=== PATIENT | male | born 1955 | race Caucasian/White ===

== ENCOUNTER → 2016-07-22 | Outpatient (CLI) | payer BC ==
--- NOTE | 2016-07-23 05:29 | REP ---
Clinical: Palpable mass. Technique: Real time vasquez scale and color Doppler evaluation using linear high frequency transducer. Findings: With the exception of 4 mm left epididymal head cyst and minuscule left hydrocele, the testicles and epididymi are normal in contour, size, echogenicity, and vascularity. As no evidence for mass lesion, infectious/inflammatory process, or torsion. Right testicle measures 4.5 x 2.0 x 2.8 cm. Left testicle measures 4.5 x 2.2 x 3.3 cm. Impression: Essentially normal scrotal ultrasound. Signed by Alex Melton MD 07/23/2016 05:20 A
== END ==
LOC: M SMT 09:10
PROVIDERS: ATTEND Physician Assistant
DX: D40.10 Neoplasm of uncertain behavior of unspecified testis (principal); K40.90 Unilateral inguinal hernia, without obstruction or gangrene, not specified as recurrent

== ENCOUNTER → 2016-09-23 | Outpatient (REF) ==
--- NOTE | 2016-09-24 03:03 | REP ---
Clinical: Pain and disability. Technique: Internal rotation, external rotation, and Y view. Findings: Mild age-related degenerative changes include cortical irregularity and very subtle spurring at the acromioclavicular joint along with subtle fraying and blunting to the glenoid rim. Humeral head appears intact and relatively normal. Subacromial space decreases to 8.5 mm. No periarticular calcifications. Surrounding soft tissues normal. 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 Signed by Alex Melton MD 09/24/2016 02:54 A
--- NOTE | 2016-09-24 03:06 | REP ---
Clinical: Pain and disability. Technique: AP, lateral, bilateral oblique, and sunrise views of the right knee. Findings: Increased sclerosis to the tibial plateau is appreciated along with mild tibiofemoral joint space narrowing. Lateral and sunrise views demonstrates decreased patellofemoral joint space with increased sclerosis and fraying along the anterior margin of the patella suggesting mild patellar tendinopathy. No acute fracture dislocation. No effusion. Impression: Mild arthritic degenerative changes as described above. Signed by Alex Melton MD 09/24/2016 02:57 A
== END ==
LOC: M SMT 10:23
PROVIDERS: ATTEND Internal Medicine
DX: Z02.71 Encounter for disability determination (principal)

== ENCOUNTER 2017-06-03 21:53 | Inpatient (IN) | payer BC ==
[2017-06-03] MEDS: NS 1,000 ML IV (23:15)
[2017-06-03] MEDS: ONDANSETRON 4MG/2ML VIAL (J2405) IV (23:15)
[2017-06-03 23:35] LABS: BASO # 0.1 10^3/uL (0.0-0.2); BASO % 0.6 % (0.0-1.0); EOS % 0.3 % (0.0-3.0); HEMATOCRIT 30.8 % (42.0-52.0); HEMOGLOBIN 10.8 g/dl (14.0-18.0); IMMATURE GRANULOCYTE % 0.5 % (0-3.0); LYMPH % 8.9 % (24.0-44.0); MEAN CORPUSCULAR HEMOGLOBIN 33.4 pg (27.0-33.0); MEAN CORPUSCULAR HGB CONC 35.1 g/dl (32.0-36.5); MEAN CORPUSCULAR VOLUME 95.4 fl (80.0-96.0); MONO # 0.7 10^3/uL (0.0-0.8); MONO % 6.4 % (0.0-5.0); NEUTROPHILS # 9.5 10^3/uL (1.8-7.7); NEUTROPHILS % 83.3 % (36.0-66.0); PLATELET COUNT, AUTOMATED 139 10^3/uL (150-450); RED BLOOD COUNT 3.23 10^6/uL (4.30-6.10); RED CELL DISTRIBUTION WIDTH 14.3 % (11.5-14.5); WHITE BLOOD COUNT 11.4 10^3/uL (4.0-10.0)
[2017-06-03 23:44] LABS: INR 1.26; PROTHROMBIN TIME 16.1 SECONDS (12.4-14.5)
[2017-06-03 23:45] LABS: PARTIAL THROMBOPLASTIN TIME 40.5 SECONDS (26.8-37.9)
[2017-06-03 23:56] LABS: AMMONIA 59 uMOL/L (<32)
[2017-06-04 00:02] LABS: BLOOD UREA NITROGEN 26 MG/DL (7-18); CREATININE FOR GFR 0.83 MG/DL (0.70-1.30); GLOMERULAR FILTRATION RATE > 60.0 (>49); GLUCOSE, FASTING 175 MG/DL (70-100); POTASSIUM SERUM 3.9 MEQ/L (3.5-5.1); SODIUM LEVEL 137 MEQ/L (136-145)
[2017-06-04 00:03] LABS: ALBUMIN 2.6 GM/DL (3.2-5.2); ALBUMIN/GLOBULIN RATIO 0.51 (1.00-1.93); ALKALINE PHOSPHATASE 193 U/L (45-117); ALT/SGPT 21 U/L (12-78); ANION GAP 11 MEQ/L (8-16); AST/SGOT 76 U/L (7-37); BILIRUBIN,DIRECT 2.8 MG/DL (0.0-0.2); BILIRUBIN,TOTAL 5.9 MG/DL (0.2-1.0); CARBON DIOXIDE LEVEL 26 MEQ/L (21-32); CHLORIDE LEVEL 100 MEQ/L (98-107); CPK CREATINE PHOSPHOKINASE 95 U/L (39-308); ETHYL ALCOHOL (ETHANOL) < 0.003 % (0.000-0.010); LIPASE 148 U/L (73-393); TOTAL PROTEIN 7.7 GM/DL (6.4-8.2); TROPONIN I < 0.02 NG/ML (< 0.10)
[2017-06-04 00:05] LABS: MB/CK RELATIVE INDEX 1.05 (< OR =4)
[2017-06-04] MEDS ORDERED: ISOVUE-370 76% 100ML VIAL (Q9967) As Ordered (00:46)
[2017-06-04 01:02] LABS: LACTIC ACID SEPSIS PROTOCOL 3.7 MMOL/L (0.4-2.0)
[2017-06-04 01:03] LABS: KETONE, URINE AUTO RFX 1+ mg/dL (NEGATIVE); LEUKOCYTE ESTERASE UR AUTO RFX NEGATIVE (NEGATIVE); MUCUS, URINE RFX SMALL (NEGATIVE); NITRITE, URINE AUTO RFX NEGATIVE (NEGATIVE); RBC, URINE AUTO RFX 1 /HPF (0-3); SPECIFIC GRAVITY UR AUTO RFX 1.029 (1.002-1.035); SQUAM EPITHELIAL CELL UR AURFX 0 /HPF (0-6); WBC, URINE AUTO RFX 1 /HPF (0-3)
[2017-06-04] MEDS: METOCLOPRAMIDE INJ 10MG/2ML VIAL (J2765) IV (02:29)
[2017-06-04] MEDS: NS 1,000 ML IV ×3 (03:00→17:06)
[2017-06-04] MEDS ORDERED: ONDANSETRON 4MG/2ML VIAL (J2405) IV (03:15)
[2017-06-04] MEDS ORDERED: IBUPROFEN 200 MG TAB PO (03:30)
[2017-06-04] MEDS: [UNRECOGNIZED DRUG - OTHER] IV (04:06)
[2017-06-04] MEDS: PANTOPRAZOLE SODIUM 40 MG in D5W 50 ML IV ×5 (04:06→23:46)
[2017-06-04] MEDS: THIAMINE IV (04:06)
[2017-06-04] MEDS: FOLIC ACID IV (04:06)
[2017-06-04] MEDS: MULTIVITAMIN ADULT IV (04:06)
[2017-06-04 06:35] LABS: HEMATOCRIT 23.4 % (42.0-52.0); MEAN CORPUSCULAR HEMOGLOBIN 33.3 pg (27.0-33.0); MEAN CORPUSCULAR HGB CONC 34.6 g/dl (32.0-36.5); MEAN CORPUSCULAR VOLUME 96.3 fl (80.0-96.0); PLATELET COUNT, AUTOMATED 101 10^3/uL (150-450); RED BLOOD COUNT 2.43 10^6/uL (4.30-6.10); RED CELL DISTRIBUTION WIDTH 14.5 % (11.5-14.5); WHITE BLOOD COUNT 9.5 10^3/uL (4.0-10.0)
[2017-06-04 06:41] LABS: HEMOGLOBIN 8.1 g/dl (14.0-18.0)
[2017-06-04 06:55] LABS: AMMONIA 96 uMOL/L (<32)
[2017-06-04 06:55] LABS: ALBUMIN/GLOBULIN RATIO 0.49 (1.00-1.93); ALKALINE PHOSPHATASE 131 U/L (45-117); ALT/SGPT 15 U/L (12-78); ANION GAP 9 MEQ/L (8-16); AST/SGOT 55 U/L (7-37); BILIRUBIN,TOTAL 4.1 MG/DL (0.2-1.0); BLOOD UREA NITROGEN 25 MG/DL (7-18); CARBON DIOXIDE LEVEL 25 MEQ/L (21-32); CHLORIDE LEVEL 106 MEQ/L (98-107); GLOMERULAR FILTRATION RATE > 60.0 (>49); GLUCOSE, FASTING 157 MG/DL (70-100); MAGNESIUM LEVEL 1.8 MG/DL (1.8-2.4); POTASSIUM SERUM 3.8 MEQ/L (3.5-5.1); SODIUM LEVEL 140 MEQ/L (136-145); TOTAL PROTEIN 6.1 GM/DL (6.4-8.2)
[2017-06-04] MEDS ORDERED: IBUPROFEN 600 MG TAB PO (07:30)
[2017-06-04] MEDS: OCTREOTIDE ACETATE 1,200 MCG in NS 238.8 ML IV (07:50)
[2017-06-04] MEDS: CEFTRIAXONE SOD 1 GM in APPROPRIATE DILUENT 1 EA IV (07:51)
[2017-06-04 10:29] LABS: IMMEDIATE SPIN CROSSMATCH 1 1
[2017-06-04 10:58] LABS: HEPATITIS B SURFACE ANTIGEN NEGATIVE (NEGATIVE)
[2017-06-04 11:23] LABS: HEPATITIS B CORE ANTIBODY IGM NEGATIVE (NEGATIVE)
[2017-06-04 11:32] LABS: HEPATITIS A ANTIBODY IGM NEGATIVE (NEGATIVE)
[2017-06-04 16:21] LABS: BASO # 0.1 10^3/uL (0.0-0.2); BASO % 1.1 % (0.0-1.0); EOS # 0.1 10^3/uL (0.0-0.50); EOS % 1.4 % (0.0-3.0); HEMATOCRIT 25.3 % (42.0-52.0); HEMOGLOBIN 8.7 g/dl (14.0-18.0); IMMATURE GRANULOCYTE % 0.6 % (0-3.0); LYMPH # 1.4 10^3/uL (1.5-4.5); LYMPH % 19.5 % (24.0-44.0); MEAN CORPUSCULAR HEMOGLOBIN 33.2 pg (27.0-33.0); MEAN CORPUSCULAR HGB CONC 34.4 g/dl (32.0-36.5); MEAN CORPUSCULAR VOLUME 96.6 fl (80.0-96.0); MONO # 0.7 10^3/uL (0.0-0.8); MONO % 9.8 % (0.0-5.0); NEUTROPHILS # 4.8 10^3/uL (1.8-7.7); NEUTROPHILS % 67.6 % (36.0-66.0); PLATELET COUNT, AUTOMATED 100 10^3/uL (150-450); RED BLOOD COUNT 2.62 10^6/uL (4.30-6.10); RED CELL DISTRIBUTION WIDTH 15.9 % (11.5-14.5); WHITE BLOOD COUNT 7.1 10^3/uL (4.0-10.0)
[2017-06-04 16:49] LABS: BLOOD UREA NITROGEN 26 MG/DL (7-18)
[2017-06-04 16:49] LABS: CREATININE FOR GFR 0.68 MG/DL (0.70-1.30); GLOMERULAR FILTRATION RATE > 60.0 (>49)
[2017-06-05] MEDS: NS 1,000 ML IV (03:29)
[2017-06-05] MEDS: OCTREOTIDE ACETATE 1,200 MCG in NS 238.8 ML IV (05:28)
[2017-06-05] MEDS: PANTOPRAZOLE SODIUM 40 MG in D5W 50 ML IV ×2 (05:36→09:45)
[2017-06-05 05:40] LABS: HEMATOCRIT 24.1 % (42.0-52.0); HEMOGLOBIN 8.2 g/dl (14.0-18.0); MEAN CORPUSCULAR HEMOGLOBIN 33.1 pg (27.0-33.0); MEAN CORPUSCULAR VOLUME 97.2 fl (80.0-96.0); RED BLOOD COUNT 2.48 10^6/uL (4.30-6.10); RED CELL DISTRIBUTION WIDTH 15.9 % (11.5-14.5); WHITE BLOOD COUNT 5.7 10^3/uL (4.0-10.0)
[2017-06-05 05:55] LABS: ALBUMIN 2.1 GM/DL (3.2-5.2); ALBUMIN/GLOBULIN RATIO 0.54 (1.00-1.93); ALKALINE PHOSPHATASE 118 U/L (45-117); ALT/SGPT 17 U/L (12-78); ANION GAP 7 MEQ/L (8-16); AST/SGOT 80 U/L (7-37); BILIRUBIN,TOTAL 4.3 MG/DL (0.2-1.0); BLOOD UREA NITROGEN 22 MG/DL (7-18); CALCIUM LEVEL 7.4 MG/DL (8.8-10.2); CARBON DIOXIDE LEVEL 25 MEQ/L (21-32); CHLORIDE LEVEL 110 MEQ/L (98-107); CREATININE FOR GFR 0.64 MG/DL (0.70-1.30); GLOMERULAR FILTRATION RATE > 60.0 (>49); GLUCOSE, FASTING 110 MG/DL (70-100); MAGNESIUM LEVEL 1.7 MG/DL (1.8-2.4); PLATELET COUNT, AUTOMATED 95 10^3/uL (150-450); POTASSIUM SERUM 3.6 MEQ/L (3.5-5.1); SODIUM LEVEL 142 MEQ/L (136-145)
[2017-06-05 05:56] LABS: IMMATURE PLATELET FRACTION % 5.2 % (0.0-10.9)
[2017-06-05] MEDS: MAG SULF 1GM/100ML (MAG RUN) 1 GM in APPROPRIATE DILUENT 1 EA IV (08:20)
[2017-06-05] MEDS: THIAMINE 100 MG TAB PO (09:45)
[2017-06-05] MEDS: PANTOPRAZOLE 40MG INJ (PROTONIX) (C9113) IV ×2 (11:50→21:12)
[2017-06-05] MEDS: CEFTRIAXONE SOD 1 GM in APPROPRIATE DILUENT 1 EA IV (11:50)
[2017-06-05 13:09] LABS: HEMATOCRIT 27.2 % (42.0-52.0); HEMOGLOBIN 9.2 g/dl (14.0-18.0)
[2017-06-05 18:32] LABS: HEMATOCRIT 25.5 % (42.0-52.0); HEMOGLOBIN 8.7 g/dl (14.0-18.0)
[2017-06-05] MEDS: MULTIVITAMINS/MINERALS THERAP 1 TAB PO (21:07)
[2017-06-06 00:25] LABS: HEMOGLOBIN 8.3 g/dl (14.0-18.0)
[2017-06-06] MEDS: OCTREOTIDE ACETATE 1,200 MCG in NS 238.8 ML IV (04:47)
[2017-06-06 06:15] LABS: HEMATOCRIT 24.4 % (42.0-52.0); HEMOGLOBIN 8.4 g/dl (14.0-18.0); MEAN CORPUSCULAR HEMOGLOBIN 33.2 pg (27.0-33.0); MEAN CORPUSCULAR HGB CONC 34.4 g/dl (32.0-36.5); MEAN CORPUSCULAR VOLUME 96.4 fl (80.0-96.0); PLATELET COUNT, AUTOMATED 102 10^3/uL (150-450); RED BLOOD COUNT 2.53 10^6/uL (4.30-6.10); RED CELL DISTRIBUTION WIDTH 15.3 % (11.5-14.5); WHITE BLOOD COUNT 5.5 10^3/uL (4.0-10.0)
[2017-06-06 06:37] LABS: ALBUMIN 2.2 GM/DL (3.2-5.2); ALBUMIN/GLOBULIN RATIO 0.54 (1.00-1.93); ALKALINE PHOSPHATASE 117 U/L (45-117); ALT/SGPT 29 U/L (12-78); ANION GAP 9 MEQ/L (8-16); AST/SGOT 142 U/L (7-37); BILIRUBIN,TOTAL 4.3 MG/DL (0.2-1.0); BLOOD UREA NITROGEN 13 MG/DL (7-18); CALCIUM LEVEL 7.8 MG/DL (8.8-10.2); CARBON DIOXIDE LEVEL 25 MEQ/L (21-32); CHLORIDE LEVEL 103 MEQ/L (98-107); CREATININE FOR GFR 0.66 MG/DL (0.70-1.30); GLOMERULAR FILTRATION RATE > 60.0 (>49); GLUCOSE, FASTING 94 MG/DL (70-100); MAGNESIUM LEVEL 1.9 MG/DL (1.8-2.4); POTASSIUM SERUM 3.4 MEQ/L (3.5-5.1); SODIUM LEVEL 137 MEQ/L (136-145); TOTAL PROTEIN 6.3 GM/DL (6.4-8.2)
[2017-06-06] MEDS: POTASSIUM CHLORIDE 10 MEQ SR TABLET PO (08:28)
[2017-06-06] MEDS: CEFTRIAXONE SOD 1 GM in APPROPRIATE DILUENT 1 EA IV (08:28)
[2017-06-06] MEDS: PANTOPRAZOLE 40MG INJ (PROTONIX) (C9113) IV (08:28)
[2017-06-06 08:29] LABS: LACTIC ACID SEPSIS PROTOCOL 1.4 MMOL/L (0.4-2.0)
[2017-06-06] MEDS: THIAMINE 100 MG TAB PO (08:29)
== END 2017-06-06 11:42 | disposition home or self-care (01) | DRG 241 ==
LOC: M ED 21:53 → M ED INP 06-04 03:06 → M PCU 06-04 20:28
PROVIDERS: Internal Medicine
PROC: 30253N1 (ICD-10-PCS; principal; 2017-06-04)
DX: K29.71 Gastritis, unspecified, with bleeding (principal); E87.2 Acidosis; K76.6 Portal hypertension; D69.59 Other secondary thrombocytopenia; K70.10 Alcoholic hepatitis without ascites; I10 Essential (primary) hypertension; K21.9 Gastro-esophageal reflux disease without esophagitis; M19.90 Unspecified osteoarthritis, unspecified site; F10.10 Alcohol abuse, uncomplicated; K29.81 Duodenitis with bleeding; K28.4 Chronic or unspecified gastrojejunal ulcer with hemorrhage

== ENCOUNTER → 2017-06-24 | Day surgery (SDC) | payer BC ==
[~2017-06-24] MED LIST: CYCLOPENTOLATE 2% OPHTH SOLN 2ML BTL OS; LIDOCAINE 3.5 % 1ML OPHTH TOPICAL GEL OU; OFLOXACIN 0.3 % (OCUFLOX) OPTH SOL 5ML OS; PHENYLEPHRINE 2.5% OPHTH SOL 2ML OS; PHENYLEPHRINE HCL 10 % OPHTH. SOL 5ML OS; POVIDONE-IODINE 5% OPHTH PREP SOL 30ML As Ordered; PROPARACAINE 0.5% OPHTH SOL 15ML OS; TROPICAMIDE 1% OPHTH SOLN 2ML OS
[2017-06-24] MEDS: BALANCED SALT IRRIGATION SOLUTION 500ML BAG (FOR OR EYE MACHINE) As Ordered (07:02)
[2017-06-24] MEDS: POVIDONE-IODINE 5% OPHTH PREP SOL 30ML As Ordered (07:02)
[2017-06-24] MEDS: DUOVISC (0.50ML VISCOAT/0.55ML PROVISC) OPHTH KIT As Ordered (07:02)
[2017-06-24] MEDS: LIDOCAINE 0.75%/EPINEPHRINE 0.025% IN BSS 1ML SYR INTRACAMERAL (OR ONLY) As Ordered (07:02)
[2017-06-24] MEDS: CEFUROXIME 1MG/0.1ML INTRACAMERAL INJ As Ordered (07:02)
== END | disposition home or self-care (01) ==
LOC: M SDC 07:50
DX: H25.12 Age-related nuclear cataract, left eye (principal); Z53.8 Procedure and treatment not carried out for other reasons

== ENCOUNTER → 2017-08-24 | Outpatient (CLI) | payer BC ==
[2017-08-24 14:39] LABS: MAGNESIUM LEVEL 1.8 MG/DL (1.8-2.4)
== END ==
LOC: M LAB 13:25
DX: E87.6 Hypokalemia (principal); K70.9 Alcoholic liver disease, unspecified
CPT/HCPCS: 83735

== ENCOUNTER → 2017-08-24 | Outpatient (CLI) | payer BC ==
[2017-08-24 13:35] LABS: TYPE AND SCREEN 1
[2017-08-24 13:54] LABS: BASO # 0.1 10^3/uL (0.0-0.2); BASO % 1.4 % (0.0-1.0); EOS # 0.2 10^3/uL (0.0-0.50); EOS % 4.4 % (0.0-3.0); HEMOGLOBIN 11.1 g/dl (13.5-17.5); IMMATURE GRANULOCYTE % 0.2 % (0-3.0); LYMPH # 1.2 10^3/uL (1.5-4.5); LYMPH % 23.2 % (24.0-44.0); MEAN CORPUSCULAR HEMOGLOBIN 31.5 pg (27.0-33.0); MEAN CORPUSCULAR HGB CONC 33.6 g/dl (32.0-36.5); MEAN CORPUSCULAR VOLUME 93.8 fl (80.0-96.0); MONO # 0.5 10^3/uL (0.0-0.8); MONO % 10.2 % (0.0-5.0); NEUTROPHILS # 3.1 10^3/uL (1.8-7.7); NEUTROPHILS % 60.6 % (36.0-66.0); PLATELET COUNT, AUTOMATED 116 10^3/uL (150-450); RED BLOOD COUNT 3.52 10^6/uL (4.30-6.10); RED CELL DISTRIBUTION WIDTH 16.1 % (11.5-14.5); WHITE BLOOD COUNT 5.2 10^3/uL (4.0-10.0)
[2017-08-24 14:21] LABS: TYPE AND SCREEN 1
[2017-08-24 14:47] LABS: ALBUMIN 2.1 GM/DL (3.2-5.2); ALBUMIN/GLOBULIN RATIO 0.38 (1.00-1.93); ALKALINE PHOSPHATASE 160 U/L (45-117); ALT/SGPT 16 U/L (12-78); ANION GAP 10 MEQ/L (8-16); AST/SGOT 52 U/L (7-37); BILIRUBIN,DIRECT 1.6 MG/DL (0.0-0.2); BILIRUBIN,TOTAL 4.1 MG/DL (0.2-1.0); BLOOD UREA NITROGEN 7 MG/DL (7-18); CALCIUM LEVEL 8.1 MG/DL (8.8-10.2); CARBON DIOXIDE LEVEL 24 MEQ/L (21-32); CHLORIDE LEVEL 102 MEQ/L (98-107); CREATININE FOR GFR 0.69 MG/DL (0.70-1.30); FERRITIN 691 NG/ML (26-388); GLOMERULAR FILTRATION RATE > 60.0 (>49); GLUCOSE, FASTING 99 MG/DL (70-100); IRON (FE) 133 UG/DL (65-175); SODIUM LEVEL 136 MEQ/L (136-145); TOTAL IRON BINDING CAPACITY 133 UG/DL (250-450); TOTAL PROTEIN 7.7 GM/DL (6.4-8.2)
[2017-08-25 09:46] LABS: HEPATITIS B SURFACE ANTIGEN NEGATIVE (NEGATIVE)
[2017-08-25 09:52] LABS: HEPATITIS B SURFACE ANTIBODY NEGATIVE (POSITIVE)
[2017-08-25 10:07] LABS: HEPATITIS C VIRUS ABY INDEX < 0.0 INDEX (<0.8)
[2017-08-26 00:10] LABS: ANTI-SMOOTH MUSCLE ANTIBODY 17 Units (0-19)
[2017-08-26 00:10] LABS: ANTINUCLEAR ANTIBODIES DIRECT Negative (Negative); HEPATITIS A IgG TOTAL Negative (Negative); HEPATITIS B CORE ANTIBODY IGG Negative (Negative); LIVER-KIDNEY MICROSOMAL ABY 0.9 Units (0.0-20.0)
== END ==
LOC: M RAD 13:08
DX: R18.8 Other ascites (principal)

== ENCOUNTER 2017-09-07 10:41 | Inpatient (IN) | payer BC ==
[2017-09-07] MEDS ORDERED: PROPOFOL 200 MG/20 ML VIAL As Ordered ×2 (10:42→12:11)
[2017-09-07] MEDS: NS 1,000 ML IV ×3 (11:00→21:27)
[2017-09-07] MEDS ORDERED: fentaNYL 100 MCG/2 ML INJECTION (J3010) As Ordered (11:31)
[2017-09-07] MEDS ORDERED: LIDOCAINE 2% INJ 100 MG/5 ML SDV (FOR ANES.) As Ordered (11:31)
[2017-09-07] MEDS: PANTOPRAZOLE 40MG INJ (PROTONIX) (C9113) IV (15:21)
[2017-09-07] MEDS: ONDANSETRON 4MG/2ML VIAL (J2405) IV (15:21)
[2017-09-07] MEDS: MORPHINE 4 MG/ML 1ML VIAL/SYRINGE (J2270) IV (16:05)
[2017-09-07 16:17] LABS: INR 1.56; PROTHROMBIN TIME 19.1 SECONDS (12.4-14.5)
[2017-09-07 16:23] LABS: BASO # 0.1 10^3/uL (0.0-0.2); BASO % 0.9 % (0.0-1.0); EOS # 0.3 10^3/uL (0.0-0.50); EOS % 4.9 % (0.0-3.0); HEMATOCRIT 35.5 % (42.0-52.0); IMMATURE GRANULOCYTE % 0.6 % (0-3.0); LYMPH # 0.8 10^3/uL (1.5-4.5); LYMPH % 11.6 % (24.0-44.0); MEAN CORPUSCULAR HEMOGLOBIN 32.2 pg (27.0-33.0); MEAN CORPUSCULAR HGB CONC 33.8 g/dl (32.0-36.5); MEAN CORPUSCULAR VOLUME 95.2 fl (80.0-96.0); MONO # 0.5 10^3/uL (0.0-0.8); MONO % 7.3 % (0.0-5.0); NEUTROPHILS # 5.2 10^3/uL (1.8-7.7); NEUTROPHILS % 74.7 % (36.0-66.0); PLATELET COUNT, AUTOMATED 115 10^3/uL (150-450); RED BLOOD COUNT 3.73 10^6/uL (4.30-6.10); RED CELL DISTRIBUTION WIDTH 16.7 % (11.5-14.5)
[2017-09-07 16:26] LABS: ALBUMIN 2.1 GM/DL (3.2-5.2); ALBUMIN/GLOBULIN RATIO 0.38 (1.00-1.93); ALKALINE PHOSPHATASE 141 U/L (45-117); ALT/SGPT 16 U/L (12-78); ANION GAP 7 MEQ/L (8-16); AST/SGOT 49 U/L (7-37); BLOOD UREA NITROGEN 7 MG/DL (7-18); CALCIUM LEVEL 8.1 MG/DL (8.8-10.2); CARBON DIOXIDE LEVEL 24 MEQ/L (21-32); CHLORIDE LEVEL 105 MEQ/L (98-107); CK-MB VALUE MASS < 1.0 NG/ML (<3.6); CPK CREATINE PHOSPHOKINASE 60 U/L (39-308); CREATININE FOR GFR 0.66 MG/DL (0.70-1.30); GLOMERULAR FILTRATION RATE > 60.0 (>49); GLUCOSE, FASTING 108 MG/DL (70-100); MAGNESIUM LEVEL 1.7 MG/DL (1.8-2.4); MB/CK RELATIVE INDEX 1.66 (< OR =4); POTASSIUM SERUM 4.1 MEQ/L (3.5-5.1); SODIUM LEVEL 136 MEQ/L (136-145); TOTAL PROTEIN 7.7 GM/DL (6.4-8.2); TROPONIN I < 0.02 NG/ML (< 0.10)
[2017-09-07 16:32] LABS: ABG BASE EXCESS -1.9 (-2.0-2.0); ABG HCO3 20.8 MEQ/L (22.0-26.0); ABG O2 SATURATION 95.9 % (95.0-99.0); ABG PARTIAL PRESSURE CO2 29.4 mmHg (35.0-45.0); ABG PARTIAL PRESSURE O2 76.6 mmHg (75.0-100.0); ABG STANDARD HCO3 22.8 MEQ/L (22.0-26.0); ABG TOTAL CO2 21.7 MEQ/L (23.0-31.0); ABG pH (ARTERIAL) 7.468 UNITS (7.350-7.450)
[2017-09-07 17:39] LABS: ASCITES FL COLOR YELLOW (COLORLESS); SOURCE, BODY FLUID ASCITES
[2017-09-07 17:40] LABS: APPEARANCE, BODY FLUID CLEAR (CLEAR); SPEC. GRAVITY BODY FLUIDS 1.011 (NOT ESTABLISHED)
[2017-09-07 18:12] LABS: BF MONONUCLEAR CELL % 86.2 % (0-0); BF POLYMORPHONUCLEAR CELL % 13.8 % (0-0); RBC BODY FLUID < 2 10^3/uL (<2); WBC BODY FLUID 195 /uL (0-10)
[2017-09-07 18:13] LABS: BF DIFF IF INDICATED? YES (NO)
[2017-09-07 18:14] LABS: SOURCE, BODY FLUID ALBUMIN ASCITES; SOURCE, BODY FLUID GLUCOSE ASCITES; SOURCE, BODY FLUID TOT PROTEIN ASCITES; TOTAL PROTEIN, BODY FLUID 1.2 G/DL (NOT ESTABLISHED)
[2017-09-07] MEDS: CHLORHEXIDINE ORAL RINSE 0.12%/15ML 120ML BOTTLE MT (20:11)
[2017-09-07 22:32] LABS: CPK CREATINE PHOSPHOKINASE 45 U/L (39-308); TROPONIN I < 0.02 NG/ML (< 0.10)
[2017-09-07 22:33] LABS: CK-MB VALUE MASS < 1.0 NG/ML (<3.6); MB/CK RELATIVE INDEX 2.22 (< OR =4)
[2017-09-08 05:03] LABS: HEMATOCRIT 37.6 % (42.0-52.0); HEMOGLOBIN 12.6 g/dl (13.5-17.5); MEAN CORPUSCULAR HEMOGLOBIN 32.8 pg (27.0-33.0); MEAN CORPUSCULAR HGB CONC 33.5 g/dl (32.0-36.5); MEAN CORPUSCULAR VOLUME 97.9 fl (80.0-96.0); PLATELET COUNT, AUTOMATED 139 10^3/uL (150-450); RED BLOOD COUNT 3.84 10^6/uL (4.30-6.10); WHITE BLOOD COUNT 11.7 10^3/uL (4.0-10.0)
[2017-09-08 05:24] LABS: ALBUMIN 1.9 GM/DL (3.2-5.2); ALBUMIN/GLOBULIN RATIO 0.38 (1.00-1.93); ALKALINE PHOSPHATASE 128 U/L (45-117); ALT/SGPT 14 U/L (12-78); ANION GAP 8 MEQ/L (8-16); AST/SGOT 40 U/L (7-37); BILIRUBIN,TOTAL 6.3 MG/DL (0.2-1.0); BLOOD UREA NITROGEN 10 MG/DL (7-18); CALCIUM LEVEL 7.9 MG/DL (8.8-10.2); CARBON DIOXIDE LEVEL 24 MEQ/L (21-32); CHLORIDE LEVEL 106 MEQ/L (98-107); CPK CREATINE PHOSPHOKINASE 48 U/L (39-308); CREATININE FOR GFR 0.88 MG/DL (0.70-1.30); GLOMERULAR FILTRATION RATE > 60.0 (>49); GLUCOSE, FASTING 107 MG/DL (70-100); POTASSIUM SERUM 4.3 MEQ/L (3.5-5.1); SODIUM LEVEL 138 MEQ/L (136-145); TOTAL PROTEIN 6.9 GM/DL (6.4-8.2); TROPONIN I < 0.02 NG/ML (< 0.10)
[2017-09-08 05:25] LABS: CK-MB VALUE MASS < 1.0 NG/ML (<3.6); MB/CK RELATIVE INDEX 2.08 (< OR =4)
[2017-09-08] MEDS ORDERED: PROPRANOLOL 20 MG TAB PO (09:00)
[2017-09-08] MEDS: FEBUXOSTAT 40 MG TABLET (ULORIC) PO (09:00)
[2017-09-08] MEDS: LEVOTHYROXINE 50MCG TABLET (0.05MG) PO (11:04)
[2017-09-08] MEDS: MULTIVITAMINS/MINERALS THERAP 1 TAB PO (11:04)
[2017-09-08] MEDS: SPIRONOLACTONE 25 MG TAB PO (11:04)
[2017-09-08] MEDS: FUROSEMIDE 20 MG TAB PO (11:05)
[2017-09-08 11:26] LABS: TYPE AND SCREEN 1
[2017-09-08] MEDS: PROPRANOLOL 10 MG TAB PO (12:22)
== END 2017-09-08 13:25 | disposition home or self-care (01) | DRG 280 ==
LOC: M OPP 10:41 → M ICU 13:40
PROC: 0DJ08ZZ Inspection of Upper Intestinal Tract, Via Natural or Artificial Opening Endoscopic (ICD-10-PCS; principal; 2017-09-07 11:27)
PROC: 0DBL8ZZ Excision of Transverse Colon, Via Natural or Artificial Opening Endoscopic (ICD-10-PCS; 2017-09-07 11:27)
PROC: 0W9G3ZZ Drainage of Peritoneal Cavity, Percutaneous Approach (ICD-10-PCS; 2017-09-07 11:27)
DX: K70.31 Alcoholic cirrhosis of liver with ascites (principal); I10 Essential (primary) hypertension; I85.10 Secondary esophageal varices without bleeding; K21.9 Gastro-esophageal reflux disease without esophagitis; M19.90 Unspecified osteoarthritis, unspecified site; K31.89 Other diseases of stomach and duodenum; E03.9 Hypothyroidism, unspecified; F10.20 Alcohol dependence, uncomplicated; K57.30 Diverticulosis of large intestine without perforation or abscess without bleeding; D12.3 Benign neoplasm of transverse colon; K64.4 Residual hemorrhoidal skin tags; K64.8 Other hemorrhoids; Z79.899 Other long term (current) drug therapy

== ENCOUNTER → 2017-09-07 | Outpatient (CLI) | payer BC ==
[2017-09-07 10:43] LABS: HEMATOCRIT 33.5 % (42.0-52.0); HEMOGLOBIN 11.4 g/dl (13.5-17.5); MEAN CORPUSCULAR HEMOGLOBIN 32.8 pg (27.0-33.0); MEAN CORPUSCULAR VOLUME 96.3 fl (80.0-96.0); PLATELET COUNT, AUTOMATED 114 10^3/uL (150-450); RED BLOOD COUNT 3.48 10^6/uL (4.30-6.10); RED CELL DISTRIBUTION WIDTH 16.9 % (11.5-14.5); WHITE BLOOD COUNT 5.7 10^3/uL (4.0-10.0)
[2017-09-07 11:00] LABS: INR 1.54; PROTHROMBIN TIME 18.9 SECONDS (12.4-14.5)
[2017-09-07 11:02] LABS: PARTIAL THROMBOPLASTIN TIME 46.4 SECONDS (26.8-37.9)
== END ==
LOC: M LAB 10:16
DX: D64.9 Anemia, unspecified (principal); K70.31 Alcoholic cirrhosis of liver with ascites
CPT/HCPCS: 85610

== ENCOUNTER → 2017-09-21 | Outpatient (CLI) | payer BC ==
[2017-09-21 14:36] LABS: BASO # 0.1 10^3/uL (0.0-0.2); BASO % 1.3 % (0.0-1.0); EOS # 0.6 10^3/uL (0.0-0.50); EOS % 11.8 % (0.0-3.0); HEMATOCRIT 33.1 % (42.0-52.0); HEMOGLOBIN 11.2 g/dl (13.5-17.5); IMMATURE GRANULOCYTE % 0.2 % (0-3.0); LYMPH # 1.2 10^3/uL (1.5-4.5); LYMPH % 22.3 % (24.0-44.0); MEAN CORPUSCULAR HEMOGLOBIN 33.4 pg (27.0-33.0); MEAN CORPUSCULAR HGB CONC 33.8 g/dl (32.0-36.5); MEAN CORPUSCULAR VOLUME 98.8 fl (80.0-96.0); MONO # 0.5 10^3/uL (0.0-0.8); MONO % 8.6 % (0.0-5.0); NEUTROPHILS % 55.8 % (36.0-66.0); PLATELET COUNT, AUTOMATED 116 10^3/uL (150-450); RED BLOOD COUNT 3.35 10^6/uL (4.30-6.10); RED CELL DISTRIBUTION WIDTH 15.8 % (11.5-14.5); WHITE BLOOD COUNT 5.3 10^3/uL (4.0-10.0)
[2017-09-21 15:06] LABS: ALBUMIN 2.3 GM/DL (3.2-5.2); ALBUMIN/GLOBULIN RATIO 0.44 (1.00-1.93); ALKALINE PHOSPHATASE 124 U/L (45-117); ALT/SGPT 19 U/L (12-78); ANION GAP 10 MEQ/L (8-16); AST/SGOT 46 U/L (7-37); BILIRUBIN,DIRECT 1.7 MG/DL (0.0-0.2); BILIRUBIN,TOTAL 4.1 MG/DL (0.2-1.0); BLOOD UREA NITROGEN 7 MG/DL (7-18); CALCIUM LEVEL 8.2 MG/DL (8.8-10.2); CARBON DIOXIDE LEVEL 29 MEQ/L (21-32); CHLORIDE LEVEL 98 MEQ/L (98-107); CREATININE FOR GFR 0.73 MG/DL (0.70-1.30); GAMMA GLUTAMYLTRANSPEPTIDASE 56 U/L (15-85); GLOMERULAR FILTRATION RATE > 60.0 (>49); GLUCOSE, FASTING 94 MG/DL (70-100); POTASSIUM SERUM 3.3 MEQ/L (3.5-5.1); SODIUM LEVEL 137 MEQ/L (136-145); TOTAL PROTEIN 7.5 GM/DL (6.4-8.2)
== END ==
LOC: M LAB 13:58
DX: D64.9 Anemia, unspecified (principal); K70.31 Alcoholic cirrhosis of liver with ascites
CPT/HCPCS: 82977

== ENCOUNTER 2017-12-15 08:02 | Inpatient (IN) | payer BC ==
[2017-12-15] MEDS ORDERED: FEBUXOSTAT 40 MG TABLET (ULORIC) PO (09:00)
[2017-12-15] MEDS: NS 1,000 ML IV ×3 (09:49→14:52)
[2017-12-15] MEDS: ONDANSETRON 4MG/2ML VIAL (J2405) IV (09:49)
[2017-12-15] MEDS: MORPHINE 4 MG/ML 1ML VIAL/SYRINGE (J2270) IV (09:49)
[2017-12-15 11:30] LABS: BASO % 0.2 % (0.0-1.0); EOS % 0.4 % (0.0-3.0); HEMATOCRIT 29.7 % (42.0-52.0); HEMOGLOBIN 10.2 g/dl (13.5-17.5); IMMATURE GRANULOCYTE % 0.4 % (0-3.0); LYMPH # 0.4 10^3/uL (1.5-4.5); LYMPH % 4.6 % (24.0-44.0); MEAN CORPUSCULAR HEMOGLOBIN 34.2 pg (27.0-33.0); MEAN CORPUSCULAR HGB CONC 34.3 g/dl (32.0-36.5); MEAN CORPUSCULAR VOLUME 99.7 fl (80.0-96.0); MONO # 0.8 10^3/uL (0.0-0.8); MONO % 9.7 % (0.0-5.0); NEUTROPHILS # 7.1 10^3/uL (1.8-7.7); NEUTROPHILS % 84.7 % (36.0-66.0); RED BLOOD COUNT 2.98 10^6/uL (4.30-6.10); WHITE BLOOD COUNT 8.3 10^3/uL (4.0-10.0)
[2017-12-15 11:46] LABS: PLATELET COUNT, AUTOMATED 78 10^3/uL (150-450)
[2017-12-15 12:03] LABS: IMMATURE PLATELET FRACTION % 3.8 % (0.0-10.9)
[2017-12-15 12:37] LABS: ALBUMIN 2.2 GM/DL (3.2-5.2); ALBUMIN/GLOBULIN RATIO 0.49 (1.00-1.93); ALKALINE PHOSPHATASE 252 U/L (45-117); ALT/SGPT 23 U/L (12-78); ANION GAP 8 MEQ/L (8-16); AST/SGOT 54 U/L (7-37); BILIRUBIN,DIRECT 2.6 MG/DL (0.0-0.2); BILIRUBIN,TOTAL 4.5 MG/DL (0.2-1.0); BLOOD UREA NITROGEN 8 MG/DL (7-18); CALCIUM LEVEL 8.1 MG/DL (8.8-10.2); CARBON DIOXIDE LEVEL 26 MEQ/L (21-32); CHLORIDE LEVEL 105 MEQ/L (98-107); CK-MB VALUE MASS < 1.0 NG/ML (<3.6); CPK CREATINE PHOSPHOKINASE 56 U/L (39-308); CREATININE FOR GFR 0.79 MG/DL (0.70-1.30); GLOMERULAR FILTRATION RATE > 60.0 (>49); GLUCOSE, FASTING 118 MG/DL (70-100); LIPASE 10023 U/L (73-393); MB/CK RELATIVE INDEX 1.79 (< OR =4); POTASSIUM SERUM 3.5 MEQ/L (3.5-5.1); SODIUM LEVEL 139 MEQ/L (136-145); TOTAL PROTEIN 6.7 GM/DL (6.4-8.2); TROPONIN I < 0.02 NG/ML (< 0.10)
[2017-12-15] MEDS: POTASSIUM CHLORIDE 10 MEQ SR TABLET PO (14:40)
[2017-12-15 14:49] LABS: MAGNESIUM LEVEL 1.4 MG/DL (1.8-2.4)
[2017-12-15] MEDS ORDERED: NS 1,000 ML IV (14:55)
[2017-12-15] MEDS ORDERED: ONDANSETRON 4MG/2ML VIAL (J2405) IV (15:00)
[2017-12-15] MEDS ORDERED: OXAZEPAM 10 MG CAP PO (15:00)
[2017-12-15] MEDS ORDERED: MORPHINE 4 MG/ML 1ML VIAL/SYRINGE (J2270) IV (15:00)
[2017-12-15 15:03] LABS: INR 1.45; PROTHROMBIN TIME 17.9 SECONDS (12.1-14.4)
[2017-12-15] MEDS: THIAMINE 100 MG TAB PO (16:54)
[2017-12-15] MEDS: MAG SULF 1GM/100ML (MAG RUN) 1 GM in APPROPRIATE DILUENT 1 EA IV (16:54)
[2017-12-15] MEDS: LR 1,000 ML IV (17:00)
[2017-12-15] MEDS: MULTIVITAMINS/MINERALS THERAP 1 TAB PO (17:00)
[2017-12-15] MEDS: OXAZEPAM 10 MG CAP PO (18:26)
[2017-12-15 20:26] LABS: CK-MB VALUE MASS < 1.0 NG/ML (<3.6); CPK CREATINE PHOSPHOKINASE 58 U/L (39-308); MB/CK RELATIVE INDEX 1.72 (< OR =4); TROPONIN I 0.02 NG/ML (< 0.10)
[2017-12-15] MEDS: PANTOPRAZOLE 40MG TAB (PROTONIX) PO (20:38)
[2017-12-16] MEDS: LR 1,000 ML IV ×3 (00:15→16:36)
[2017-12-16] MEDS: OXAZEPAM 10 MG CAP PO ×5 (00:30→23:22)
[2017-12-16] MEDS ORDERED: NEOSPORIN OINT 0.9 GM PKT (FLOOR STOCK) As Ordered (04:01)
[2017-12-16] MEDS: LEVOTHYROXINE 50MCG TABLET (0.05MG) PO (05:28)
[2017-12-16 07:00] LABS: APPEARANCE, URINE HAZY (CLEAR); BACTERIA, URINE AUTO NEGATIVE (NEGATIVE); BILIRUBIN, URINE AUTO 1+ (NEGATIVE); BLOOD, URINE BLOOD NEGATIVE (NEGATIVE); COLOR, URINE AMBER (YELLOW); GLUCOSE, URINE (UA) AUTO NEGATIVE (NEGATIVE); KETONE, URINE AUTO NEGATIVE (NEGATIVE); LEUKOCYTE ESTERASE, URINE AUTO NEGATIVE (NEGATIVE); MUCUS, URINE SMALL (NEGATIVE); NITRITE, URINE AUTO NEGATIVE (NEGATIVE); PROTEIN, URINE AUTO NEGATIVE (NEGATIVE); RBC, URINE AUTO 7 /HPF (0-3); SPECIFIC GRAVITY URINE AUTO 1.019 (1.002-1.035); SQUAMOUS EPITHELIAL CELL UR AU 0 /HPF (0-6); WBC, URINE AUTO 19 /HPF (0-3)
[2017-12-16 08:36] LABS: BASO % 0.6 % (0.0-1.0); EOS # 0.2 10^3/uL (0.0-0.50); EOS % 2.4 % (0.0-3.0); HEMATOCRIT 28.2 % (42.0-52.0); HEMOGLOBIN 9.5 g/dl (13.5-17.5); IMMATURE GRANULOCYTE % 0.4 % (0-3.0); LYMPH # 0.7 10^3/uL (1.5-4.5); LYMPH % 9.5 % (24.0-44.0); MEAN CORPUSCULAR HEMOGLOBIN 34.8 pg (27.0-33.0); MEAN CORPUSCULAR HGB CONC 33.7 g/dl (32.0-36.5); MEAN CORPUSCULAR VOLUME 103.3 fl (80.0-96.0); MONO # 0.9 10^3/uL (0.0-0.8); MONO % 12.8 % (0.0-5.0); NEUTROPHILS # 5.2 10^3/uL (1.8-7.7); NEUTROPHILS % 74.3 % (36.0-66.0); RED BLOOD COUNT 2.73 10^6/uL (4.30-6.10); RED CELL DISTRIBUTION WIDTH 14.4 % (11.5-14.5); WHITE BLOOD COUNT 6.9 10^3/uL (4.0-10.0)
[2017-12-16] MEDS: FOLIC ACID 1 MG TAB PO (08:36)
[2017-12-16] MEDS: THIAMINE 100 MG TAB PO (08:36)
[2017-12-16] MEDS: MULTIVITAMINS/MINERALS THERAP 1 TAB PO (08:36)
[2017-12-16 08:45] LABS: INR 1.61; PROTHROMBIN TIME 19.4 SECONDS (12.1-14.4)
[2017-12-16 09:19] LABS: ALBUMIN 2.1 GM/DL (3.2-5.2); ALBUMIN/GLOBULIN RATIO 0.49 (1.00-1.93); ALKALINE PHOSPHATASE 162 U/L (45-117); ALT/SGPT 21 U/L (12-78); ANION GAP 6 MEQ/L (8-16); AST/SGOT 45 U/L (7-37); BILIRUBIN,TOTAL 5.4 MG/DL (0.2-1.0); BLOOD UREA NITROGEN 14 MG/DL (7-18); CALCIUM LEVEL 8.1 MG/DL (8.8-10.2); CARBON DIOXIDE LEVEL 24 MEQ/L (21-32); CHLORIDE LEVEL 108 MEQ/L (98-107); CREATININE FOR GFR 0.72 MG/DL (0.70-1.30); GLOMERULAR FILTRATION RATE > 60.0 (>49); GLUCOSE, FASTING 150 MG/DL (70-100); LIPASE 6298 U/L (73-393); MAGNESIUM LEVEL 1.9 MG/DL (1.8-2.4); POTASSIUM SERUM 3.8 MEQ/L (3.5-5.1); SODIUM LEVEL 138 MEQ/L (136-145); TOTAL PROTEIN 6.4 GM/DL (6.4-8.2)
[2017-12-16 09:26] LABS: PLATELET COUNT, AUTOMATED 68 10^3/uL (150-450)
[2017-12-16 17:39] LABS: ALBUMIN 2.3 GM/DL (3.2-5.2); ALBUMIN/GLOBULIN RATIO 0.53 (1.00-1.93); ALKALINE PHOSPHATASE 164 U/L (45-117); ALT/SGPT 22 U/L (12-78); AST/SGOT 45 U/L (7-37); BILIRUBIN,DIRECT 2.2 MG/DL (0.0-0.2); TOTAL PROTEIN 6.6 GM/DL (6.4-8.2)
[2017-12-16] MEDS: PANTOPRAZOLE 40MG TAB (PROTONIX) PO (20:44)
[2017-12-17] MEDS: LR 1,000 ML IV ×4 (00:51→20:55)
[2017-12-17] MEDS: OXAZEPAM 10 MG CAP PO ×3 (05:38→18:19)
[2017-12-17] MEDS: LEVOTHYROXINE 50MCG TABLET (0.05MG) PO (05:38)
[2017-12-17 06:59] LABS: BASO % 0.7 % (0.0-1.0); EOS # 0.2 10^3/uL (0.0-0.50); HEMOGLOBIN 9.3 g/dl (13.5-17.5); IMMATURE GRANULOCYTE % 0.5 % (0-3.0); LYMPH # 0.8 10^3/uL (1.5-4.5); MEAN CORPUSCULAR HEMOGLOBIN 34.2 pg (27.0-33.0); MEAN CORPUSCULAR HGB CONC 34.4 g/dl (32.0-36.5); MEAN CORPUSCULAR VOLUME 99.3 fl (80.0-96.0); MONO # 0.8 10^3/uL (0.0-0.8); MONO % 13.7 % (0.0-5.0); NEUTROPHILS # 3.7 10^3/uL (1.8-7.7); NEUTROPHILS % 66.1 % (36.0-66.0); RED BLOOD COUNT 2.72 10^6/uL (4.30-6.10); WHITE BLOOD COUNT 5.6 10^3/uL (4.0-10.0)
[2017-12-17 07:09] LABS: PLATELET COUNT, AUTOMATED 76 10^3/uL (150-450)
[2017-12-17 07:10] LABS: IMMATURE PLATELET FRACTION % 2.5 % (0.0-10.9)
[2017-12-17 07:12] LABS: INR 1.55; PROTHROMBIN TIME 18.8 SECONDS (12.1-14.4)
[2017-12-17 07:24] LABS: ALBUMIN/GLOBULIN RATIO 0.49 (1.00-1.93); ALKALINE PHOSPHATASE 153 U/L (45-117); ALT/SGPT 17 U/L (12-78); ANION GAP 7 MEQ/L (8-16); AST/SGOT 35 U/L (7-37); BILIRUBIN,TOTAL 3.1 MG/DL (0.2-1.0); BLOOD UREA NITROGEN 10 MG/DL (7-18); CALCIUM LEVEL 8.2 MG/DL (8.8-10.2); CARBON DIOXIDE LEVEL 25 MEQ/L (21-32); CHLORIDE LEVEL 105 MEQ/L (98-107); GLOMERULAR FILTRATION RATE > 60.0 (>49); GLUCOSE, FASTING 97 MG/DL (70-100); LIPASE 3527 U/L (73-393); MAGNESIUM LEVEL 1.7 MG/DL (1.8-2.4); POTASSIUM SERUM 3.7 MEQ/L (3.5-5.1); SODIUM LEVEL 137 MEQ/L (136-145); TOTAL PROTEIN 6.1 GM/DL (6.4-8.2)
[2017-12-17] MEDS: THIAMINE 100 MG TAB PO (08:43)
[2017-12-17] MEDS: MULTIVITAMINS/MINERALS THERAP 1 TAB PO (08:43)
[2017-12-17] MEDS: FOLIC ACID 1 MG TAB PO (08:44)
[2017-12-17 12:25] LABS: ALPHA FETOPROTEIN TUMOR QUANT 6.3 NG/ML (<8.1)
[2017-12-17 15:17] LABS: APPEARANCE, BODY FLUID CLEAR (CLEAR); ASCITES FL COLOR YELLOW (COLORLESS); BF DIFF IF INDICATED? YES (NO); BF MONONUCLEAR CELL % 60.3 % (0-0); BF POLYMORPHONUCLEAR CELL % 39.7 % (0-0); RBC BODY FLUID < 2 10^3/uL (<2); SOURCE, BODY FLUID ASCITES; WBC BODY FLUID 493 /uL (0-10)
[2017-12-17 15:44] LABS: AMYLASE, BODY FLUID 79 U/L (NOT ESTABLISHED); SOURCE, BODY FLUID ALBUMIN ASCITES; SOURCE, BODY FLUID AMYLASE ASCITES; SOURCE, BODY FLUID LIPASE ASCITES; SOURCE, BODY FLUID TOT PROTEIN ASCITES; TOTAL PROTEIN, BODY FLUID 1.1 G/DL (NOT ESTABLISHED)
[2017-12-17] MEDS: CIPROFLOXACIN 500 MG TAB PO (18:20)
[2017-12-17] MEDS: PANTOPRAZOLE 40MG TAB (PROTONIX) PO (20:55)
[2017-12-18] MEDS: OXAZEPAM 10 MG CAP PO ×2 (00:21→05:51)
[2017-12-18] MEDS: LR 1,000 ML IV (04:22)
[2017-12-18] MEDS: LEVOTHYROXINE 50MCG TABLET (0.05MG) PO (05:51)
[2017-12-18] MEDS: CIPROFLOXACIN 500 MG TAB PO (05:51)
[2017-12-18 06:22] LABS: BASO % 0.7 % (0.0-1.0); EOS # 0.2 10^3/uL (0.0-0.50); EOS % 5.1 % (0.0-3.0); HEMATOCRIT 27.5 % (42.0-52.0); HEMOGLOBIN 9.5 g/dl (13.5-17.5); IMMATURE GRANULOCYTE % 0.5 % (0-3.0); LYMPH # 0.7 10^3/uL (1.5-4.5); LYMPH % 15.7 % (24.0-44.0); MEAN CORPUSCULAR HEMOGLOBIN 34.2 pg (27.0-33.0); MEAN CORPUSCULAR HGB CONC 34.5 g/dl (32.0-36.5); MEAN CORPUSCULAR VOLUME 98.9 fl (80.0-96.0); MONO # 0.5 10^3/uL (0.0-0.8); MONO % 12.2 % (0.0-5.0); NEUTROPHILS # 2.9 10^3/uL (1.8-7.7); NEUTROPHILS % 65.8 % (36.0-66.0); RED BLOOD COUNT 2.78 10^6/uL (4.30-6.10); RED CELL DISTRIBUTION WIDTH 13.6 % (11.5-14.5); WHITE BLOOD COUNT 4.3 10^3/uL (4.0-10.0)
[2017-12-18 06:29] LABS: PLATELET COUNT, AUTOMATED 83 10^3/uL (150-450)
[2017-12-18 06:40] LABS: INR 1.41; PROTHROMBIN TIME 17.5 SECONDS (12.1-14.4)
[2017-12-18 06:41] LABS: ALBUMIN 1.9 GM/DL (3.2-5.2); ALBUMIN/GLOBULIN RATIO 0.45 (1.00-1.93); ALKALINE PHOSPHATASE 144 U/L (45-117); ALT/SGPT 16 U/L (12-78); ANION GAP 6 MEQ/L (8-16); AST/SGOT 30 U/L (7-37); BILIRUBIN,TOTAL 2.6 MG/DL (0.2-1.0); BLOOD UREA NITROGEN 7 MG/DL (7-18); CALCIUM LEVEL 8.4 MG/DL (8.8-10.2); CARBON DIOXIDE LEVEL 24 MEQ/L (21-32); CHLORIDE LEVEL 109 MEQ/L (98-107); CREATININE FOR GFR 0.48 MG/DL (0.70-1.30); GLOMERULAR FILTRATION RATE > 60.0 (>49); GLUCOSE, FASTING 80 MG/DL (70-100); LIPASE 1262 U/L (73-393); MAGNESIUM LEVEL 1.7 MG/DL (1.8-2.4); POTASSIUM SERUM 3.7 MEQ/L (3.5-5.1); SODIUM LEVEL 139 MEQ/L (136-145); TOTAL PROTEIN 6.1 GM/DL (6.4-8.2)
[2017-12-18] MEDS: MULTIVITAMINS/MINERALS THERAP 1 TAB PO (09:06)
[2017-12-18] MEDS: THIAMINE 100 MG TAB PO (09:06)
[2017-12-18] MEDS: FOLIC ACID 1 MG TAB PO (09:06)
[2017-12-21 14:15] LABS: ETHYL ALCOHOL (ETHANOL) < 0.003 % (0.000-0.010)
== END 2017-12-18 10:37 | disposition home or self-care (01) | DRG 282 ==
LOC: M MSPAV 12-16 11:51 → M ED 08:02 → M ED INP 15:57
PROC: 0W9G3ZZ Drainage of Peritoneal Cavity, Percutaneous Approach (ICD-10-PCS; principal; 2017-12-17)
DX: K85.20 Alcohol induced acute pancreatitis without necrosis or infection (principal); I10 Essential (primary) hypertension; K70.31 Alcoholic cirrhosis of liver with ascites; I85.10 Secondary esophageal varices without bleeding; M10.9 Gout, unspecified; K21.9 Gastro-esophageal reflux disease without esophagitis; M19.90 Unspecified osteoarthritis, unspecified site; E03.9 Hypothyroidism, unspecified; D63.8 Anemia in other chronic diseases classified elsewhere; K31.89 Other diseases of stomach and duodenum; F10.10 Alcohol abuse, uncomplicated; E87.6 Hypokalemia; Z79.899 Other long term (current) drug therapy

== ENCOUNTER → 2018-01-14 | Outpatient (CLI) | payer BC ==
[2018-01-14 13:57] LABS: BASO # 0.1 10^3/uL (0.0-0.2); BASO % 1.4 % (0.0-1.0); EOS # 0.3 10^3/uL (0.0-0.50); EOS % 5.2 % (0.0-3.0); HEMATOCRIT 35.3 % (42.0-52.0); HEMOGLOBIN 12.2 g/dl (13.5-17.5); IMMATURE GRANULOCYTE % 0.4 % (0-3.0); LYMPH # 0.9 10^3/uL (1.5-4.5); LYMPH % 17.8 % (24.0-44.0); MEAN CORPUSCULAR HEMOGLOBIN 33.2 pg (27.0-33.0); MEAN CORPUSCULAR HGB CONC 34.6 g/dl (32.0-36.5); MEAN CORPUSCULAR VOLUME 96.2 fl (80.0-96.0); MONO # 0.7 10^3/uL (0.0-0.8); MONO % 12.6 % (0.0-5.0); NEUTROPHILS # 3.2 10^3/uL (1.8-7.7); NEUTROPHILS % 62.6 % (36.0-66.0); RED BLOOD COUNT 3.67 10^6/uL (4.30-6.10); WHITE BLOOD COUNT 5.2 10^3/uL (4.0-10.0)
[2018-01-14 13:59] LABS: IMMATURE PLATELET FRACTION % 5.4 % (0.0-10.9); PLATELET COUNT, AUTOMATED 86 10^3/uL (150-450)
[2018-01-14 14:24] LABS: ALBUMIN 2.6 GM/DL (3.2-5.2); ALBUMIN/GLOBULIN RATIO 0.53 (1.00-1.93); ALKALINE PHOSPHATASE 235 U/L (45-117); ALT/SGPT 23 U/L (12-78); ANION GAP 10 MEQ/L (8-16); AST/SGOT 45 U/L (7-37); BILIRUBIN,TOTAL 2.8 MG/DL (0.2-1.0); BLOOD UREA NITROGEN 9 MG/DL (7-18); CALCIUM LEVEL 8.6 MG/DL (8.8-10.2); CARBON DIOXIDE LEVEL 26 MEQ/L (21-32); CHLORIDE LEVEL 104 MEQ/L (98-107); CREATININE FOR GFR 0.71 MG/DL (0.70-1.30); GLOMERULAR FILTRATION RATE > 60.0 (>49); GLUCOSE, FASTING 121 MG/DL (70-100); MAGNESIUM LEVEL 1.8 MG/DL (1.8-2.4); POTASSIUM SERUM 3.5 MEQ/L (3.5-5.1); SODIUM LEVEL 140 MEQ/L (136-145); TOTAL PROTEIN 7.5 GM/DL (6.4-8.2)
[2018-01-14 14:29] LABS: ESTIMATED AVERAGE GLUCOSE 117 MG/DL (60-110); HEMOGLOBIN A1c 5.7 %
== END ==
LOC: M LAB 12:02
DX: D64.9 Anemia, unspecified (principal)
CPT/HCPCS: 83735

== ENCOUNTER → 2018-07-07 | Outpatient (CLI) | payer BC ==
[~2018-07-07] MED LIST changes: +ACET-907 PO; +ACET300T47 PO; +CIPR-249 PO; +CIPR500T3 PO; -CYCLOPENTOLATE 2% OPHTH SOLN 2ML BTL OS; +FEBU40TA PO; +FOLI1TAB11 PO; +FURO20TA2 PO; +FURO40TA2 PO; +GABA-843 PO; +IBUP200C25 PO; +IBUPOTC PO; -LIDOCAINE 3.5 % 1ML OPHTH TOPICAL GEL OU; +LOTR52CA PO; +MULT1TAB10 PO; -OFLOXACIN 0.3 % (OCUFLOX) OPTH SOL 5ML OS; +OPTI0.5D5 OU; +PANT40TA3 PO; -PHENYLEPHRINE 2.5% OPHTH SOL 2ML OS; -PHENYLEPHRINE HCL 10 % OPHTH. SOL 5ML OS; -POVIDONE-IODINE 5% OPHTH PREP SOL 30ML As Ordered; +PROP10TA56 PO; +PROP20TA PO; -PROPARACAINE 0.5% OPHTH SOL 15ML OS; +PROT1TAB2 PO; +SPIR-10 PO; +SPIR100T3 PO; +SYNT50TA PO; +THIA100TA PO; -TROPICAMIDE 1% OPHTH SOLN 2ML OS; +VITMTA PO; +VOLT1GEL15 TOP; +ZANTTAB PO
[2018-07-07 10:34] LABS: HEMATOCRIT 43.3 % (42.0-52.0); HEMOGLOBIN 15.1 g/dl (13.5-17.5); MEAN CORPUSCULAR HEMOGLOBIN 32.9 pg (27.0-33.0); MEAN CORPUSCULAR HGB CONC 34.9 g/dl (32.0-36.5); MEAN CORPUSCULAR VOLUME 94.3 fl (80.0-96.0); RED BLOOD COUNT 4.59 10^6/uL (4.30-6.10); WHITE BLOOD COUNT 5.6 10^3/uL (4.0-10.0)
[2018-07-07 10:39] LABS: PLATELET COUNT, AUTOMATED 96 10^3/uL (150-450)
[2018-07-07 10:54] LABS: HEMOGLOBIN A1c 6.5 %
[2018-07-07 11:11] LABS: ALBUMIN 3.4 GM/DL (3.2-5.2); ALT/SGPT 22 U/L (12-78); BILIRUBIN,TOTAL 2.8 MG/DL (0.2-1.0); BLOOD UREA NITROGEN 14 MG/DL (7-18); CALCIUM LEVEL 9.4 MG/DL (8.8-10.2); CARBON DIOXIDE LEVEL 25 MEQ/L (21-32); CHLORIDE LEVEL 101 MEQ/L (98-107); CREATININE FOR GFR 0.82 MG/DL (0.70-1.30); GLOMERULAR FILTRATION RATE > 60.0 (>49); GLUCOSE, FASTING 133 MG/DL (70-100); MAGNESIUM LEVEL 1.7 MG/DL (1.8-2.4); POTASSIUM SERUM 4.1 MEQ/L (3.5-5.1); SODIUM LEVEL 135 MEQ/L (136-145); TOTAL PROTEIN 7.5 GM/DL (6.4-8.2); URIC ACID 4.5 MG/DL (3.5-7.2)
== END ==
LOC: M LAB 09:41
PROVIDERS: ATTEND Internal Medicine
DX: R73.01 Impaired fasting glucose (principal); M10.9 Gout, unspecified; E83.42 Hypomagnesemia; D64.9 Anemia, unspecified; E03.9 Hypothyroidism, unspecified

== ENCOUNTER → 2018-07-07 | Outpatient (CLI) | payer BC ==
--- NOTE | 2018-07-07 11:28 | REP ---
COMPLETE ABDOMINAL SONOGRAPHY : HISTORY: Hepatic cirrhosis abnormal liver function studies. Rule out hepatocellular carcinoma. Quantify ascites. Check spleen size. Comparison study December 15, 2017. Comparison CT study September 07, 2017. SONOGRAPHIC FINDINGS: Scanning through the right upper quadrant of the abdomen shows evidence of a small contracted gallbladder containing shadowing stones. Common bile duct is normal measuring 0.4 cm in greatest diameter. Liver texture is coarse. No focal liver lesion is appreciated. Recanalization of the umbilical vein is seen consistent with portal hypertension. Pancreas is obscured by abdominal gas. The spleen measures 13.9 x 13.3 x 7.2 cm and is considered mildly enlarged. It is homogeneous in texture. There is no visible ascites today. Renal cortical echogenicity pattern is normal and renal contours are smooth bilaterally. The right kidney measures 11.1 x 6.0 x 6.0 cm. Left renal dimensions are 12.3 x 5.2 x 5.7 cm. There is a tiny echogenic focus in the cortex of the right kidney consistent with a small scar or parenchymal calcification. The abdominal aorta could not be seen proximally. No distal aortic aneurysm is observed. IMPRESSION: Small contracted gallbladder likely around gallstones. Coarse liver texture. No focal liver lesion is seen. Mild splenomegaly. No ascites is seen today. Otherwise negative. Electronically Signed by Chema Grissom MD 07/07/2018 01:05 P
== END ==
LOC: M RAD 08:55
PROVIDERS: ATTEND Internal Medicine Gastroenterology
DX: K70.31 Alcoholic cirrhosis of liver with ascites (principal); D64.9 Anemia, unspecified; R94.5 Abnormal results of liver function studies; R16.1 Splenomegaly, not elsewhere classified

== ENCOUNTER → 2018-07-07 | Outpatient (CLI) | payer BC ==
[~2018-07-07] MED LIST changes: -ACET-907 PO; -ACET300T47 PO; -CIPR500T3 PO; +CODE30TA3 PO; -OPTI0.5D5 OU
[2018-07-07 10:34] LABS: BASO # 0.1 10^3/uL (0.0-0.2); BASO % 1.4 % (0.0-1.0); EOS # 0.3 10^3/uL (0.0-0.50); EOS % 5.9 % (0.0-3.0); HEMOGLOBIN 14.8 g/dl (13.5-17.5); LYMPH % 17.4 % (24.0-44.0); MEAN CORPUSCULAR HEMOGLOBIN 32.7 pg (27.0-33.0); MEAN CORPUSCULAR HGB CONC 35.2 g/dl (32.0-36.5); MEAN CORPUSCULAR VOLUME 92.7 fl (80.0-96.0); MONO # 0.6 10^3/uL (0.0-0.8); MONO % 10.9 % (0.0-5.0); NEUTROPHILS # 3.7 10^3/uL (1.8-7.7); NEUTROPHILS % 64.1 % (36.0-66.0); PLATELET COUNT, AUTOMATED 104 10^3/uL (150-450); RED BLOOD COUNT 4.53 10^6/uL (4.30-6.10); WHITE BLOOD COUNT 5.8 10^3/uL (4.0-10.0)
[2018-07-07 10:43] LABS: INR 1.25; PROTHROMBIN TIME 15.9 SECONDS (12.1-14.4)
[2018-07-07 10:44] LABS: PARTIAL THROMBOPLASTIN TIME 37.5 SECONDS (25.4-37.6)
[2018-07-07 11:00] LABS: ALBUMIN 3.5 GM/DL (3.2-5.2); ALT/SGPT 22 U/L (12-78); BILIRUBIN,DIRECT 0.9 MG/DL (0.0-0.2); BILIRUBIN,TOTAL 2.8 MG/DL (0.2-1.0); BLOOD UREA NITROGEN 15 MG/DL (7-18); CALCIUM LEVEL 9.5 MG/DL (8.8-10.2); CARBON DIOXIDE LEVEL 25 MEQ/L (21-32); CHLORIDE LEVEL 101 MEQ/L (98-107); CREATININE FOR GFR 0.86 MG/DL (0.70-1.30); FERRITIN 477 NG/ML (26-388); GLOMERULAR FILTRATION RATE > 60.0 (>49); GLUCOSE, FASTING 131 MG/DL (70-100); IRON (FE) 179 UG/DL (65-175); PERCENT SATURATION 58.5 % (19.7-50.0); POTASSIUM SERUM 4.1 MEQ/L (3.5-5.1); SODIUM LEVEL 136 MEQ/L (136-145); TOTAL IRON BINDING CAPACITY 306 UG/DL (250-450); TOTAL PROTEIN 7.6 GM/DL (6.4-8.2)
== END ==
LOC: M LAB 09:36
PROVIDERS: ATTEND Internal Medicine Gastroenterology
DX: K70.31 Alcoholic cirrhosis of liver with ascites (principal); D64.9 Anemia, unspecified; R94.5 Abnormal results of liver function studies

== ENCOUNTER 2018-07-14 05:09 | Inpatient (IN) | payer BC ==
[~2018-07-14] VITALS: Ht 177.8 cm; Wt 79.0 kg
[~2018-07-14 05:09] MED LIST changes: +ACET300T47 PO; -CODE30TA3 PO
[2018-07-14] MEDS ORDERED: MORPHINE 4 MG/ML 1ML VIAL/SYRINGE (J2270) IV ONE ×2 (05:45→07:00)
[2018-07-14] MEDS ORDERED: METOCLOPRAMIDE INJ 10MG/2ML VIAL (J2765) IV ONE (05:45)
[2018-07-14] MEDS ORDERED: NS 500 ML IV ONE (05:45)
[2018-07-14 06:12] LABS: BASO # 0.1 10^3/uL (0.0-0.2); BASO % 0.8 % (0.0-1.0); EOS # 0.1 10^3/uL (0.0-0.50); EOS % 1.7 % (0.0-3.0); HEMATOCRIT 39.9 % (42.0-52.0); HEMOGLOBIN 14.1 g/dl (13.5-17.5); LYMPH # 0.7 10^3/uL (1.5-4.5); LYMPH % 9.8 % (24.0-44.0); MEAN CORPUSCULAR HEMOGLOBIN 32.9 pg (27.0-33.0); MEAN CORPUSCULAR HGB CONC 35.3 g/dl (32.0-36.5); MONO # 0.4 10^3/uL (0.0-0.8); NEUTROPHILS # 5.8 10^3/uL (1.8-7.7); NEUTROPHILS % 81.6 % (36.0-66.0); RED BLOOD COUNT 4.29 10^6/uL (4.30-6.10); WHITE BLOOD COUNT 7.1 10^3/uL (4.0-10.0)
[2018-07-14] MEDS: GASTROGRAFIN SOLUTION 30ML PO SCH ×2 (06:12→06:40)
[2018-07-14 06:24] LABS: INR 1.23; PROTHROMBIN TIME 15.7 SECONDS (12.1-14.4)
[2018-07-14 06:25] LABS: PARTIAL THROMBOPLASTIN TIME 37.7 SECONDS (25.4-37.6)
[2018-07-14 06:35] LABS: ALBUMIN 3.4 GM/DL (3.2-5.2); ALT/SGPT 31 U/L (12-78); BILIRUBIN,DIRECT 1.8 MG/DL (0.0-0.2); BILIRUBIN,TOTAL 3.4 MG/DL (0.2-1.0); BLOOD UREA NITROGEN 11 MG/DL (7-18); CALCIUM LEVEL 9.4 MG/DL (8.8-10.2); CARBON DIOXIDE LEVEL 22 MEQ/L (21-32); CHLORIDE LEVEL 105 MEQ/L (98-107); CREATININE FOR GFR 0.92 MG/DL (0.70-1.30); ETHYL ALCOHOL (ETHANOL) < 0.003 % (0.000-0.010); GLOMERULAR FILTRATION RATE > 60.0 (>49); GLUCOSE, FASTING 177 MG/DL (70-100); LIPASE 28431 U/L (73-393); POTASSIUM SERUM 3.9 MEQ/L (3.5-5.1); SODIUM LEVEL 136 MEQ/L (136-145); TOTAL PROTEIN 7.9 GM/DL (6.4-8.2)
[2018-07-14] MEDS ORDERED: ISOVUE-370 76% 100ML VIAL (Q9967) As Ordered ONE (06:40)
[2018-07-14 06:42] LABS: PLATELET COUNT, AUTOMATED 88 10^3/uL (150-450)
[2018-07-14] MEDS ORDERED: NS 1,000 ML IV ONE (06:45)
--- NOTE | 2018-07-14 08:21 | REP ---
A CT of the abdomen and pelvis with IV and oral contrast: Comparison is 09/07/2017. The visualized lung hernandez are unremarkable. The previous left pleural effusion has resolved. The hepatic parenchyma is homogeneous. There is mild nodularity of the hepatic margin compatible with cirrhosis. This is unchanged. No hepatic masses are identified. The gallbladder is distended. I suspect there are faintly visible gallbladder mural calcifications, possibly developing porcelain gallbladder. The There is a 9 mm calculus in the gallbladder neck. There is no intrahepatic or extrahepatic biliary duct dilatation. The previous abdominal ascites has resolved. The pancreas is unremarkable. The spleen is enlarged measuring 14 cm craniocaudad length. This is unchanged. The adrenals, kidneys and abdominal aorta are unremarkable. The there is no bowel distension or obstruction. There is sigmoid colon diverticulosis without diverticulitis. Pelvis: The appendix is reportedly surgically absent. There is no ascites or adenopathy. The bladder is unremarkable. The pelvic bowel loops are unremarkable except for sigmoid diverticulosis without diverticulitis. Impression: There is a calculus in the gallbladder neck. The gallbladder is distended. There is no pericholecystic fluid. 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 Probable cirrhosis. No ascites. Splenomegaly. No adenopathy or mass. No bowel distension or obstruction. Appendectomy. Electronically Signed by Thomas Arana MD 07/14/2018 08:12 A
[2018-07-14] MEDS ORDERED: LR 1,000 ML IV SCH (08:45)
[2018-07-14] MEDS ORDERED: CIPR500T3 PO (09:24)
[2018-07-14] MEDS ORDERED: OPTI0.5D5 OU (09:25)
[2018-07-14] MEDS ORDERED: ACET-907 PO (09:25)
[2018-07-14] MEDS ORDERED: PERCOCET 5MG/325MG TAB PO PRN (10:00)
[2018-07-14] MEDS ORDERED: ACETAMINOPHEN TAB 650MG DOSE (2X325MG) PO PRN (10:00)
[2018-07-14] MEDS ORDERED: MORPHINE 4 MG/ML 1ML VIAL/SYRINGE (J2270) IV PRN (10:00)
[2018-07-14] MEDS ORDERED: ENOXAPARIN 40 MG/0.4 ML SYRINGE (J1650) SC SCH (10:00)
[2018-07-14] MEDS ORDERED: METOCLOPRAMIDE INJ 10MG/2ML VIAL (J2765) IV PRN (10:15)
[2018-07-14 10:17] LABS: CHOLESTEROL LEVEL 222 MG/DL (<200); CHOLESTEROL RISK RATIO 4.111 (<5); HDL CHOLESTEROL 54 MG/DL (>40); LDL CHOLESTEROL 146 MG/DL (<100); NON-HDL-C 168 MG/DL; TRIGLYCERIDES LEVEL 108 MG/DL (<150)
[2018-07-14 11:00] VITALS: BP 120/63
[2018-07-14] MEDS: THIAMINE 100 MG TAB PO SCH (11:47)
[2018-07-14] MEDS: FOLIC ACID 1 MG TAB PO SCH (11:47)
[2018-07-14] MEDS: LEVOTHYROXINE 50MCG TABLET (0.05MG) PO SCH (11:48)
[2018-07-14] MEDS: PANTOPRAZOLE 40MG TAB (PROTONIX) PO SCH (11:48)
[2018-07-14] MEDS: LR 1,000 ML IV SCH ×3 (11:48→19:58)
[2018-07-14] MEDS: CIPROFLOXACIN 500 MG TAB PO SCH (11:48)
--- NOTE | 2018-07-14 13:05 | HPE ---
DATE OF ADMISSION: 07/14/2018 PRIMARY CARE PROVIDER: Dr. Bon Page GASTROINTESTINAL (GI): Hakan Manuel MD HISTORY OF PRESENT ILLNESS: Mr. Rousseau is a 63-year-old male with a history of alcoholic cirrhosis and recent episode of alcoholic pancreatitis in December of 2017. He presents to the emergency room (ER) for right upper quadrant abdominal pain that woke him up from sleep around 1 a.m. this morning with associated nausea and vomiting. He states this feels similar to his previous episode of pancreatitis. He describes the pain as sharp and intermittent and nonradiating. Denies all other associated symptoms with pain. No hematemesis, hematochezia, or melena. Currently, at time of admission, his pain is currently controlled with morphine received in the ER. CT imaging of the abdomen revealed a distended gallbladder without any pericholecystic fluid, and his lipase was noted to be around 28,000 on admission. He is being admitted for presumed pancreatitis and distended gallbladder. PAST MEDICAL HISTORY: Hypertension. Hyperlipidemia. Gout. Hypothyroidism. Cirrhosis with esophageal varices and portal hypertensive gastropathy with a history of paracentesis times three. Gastroesophageal reflux disease (GERD). History of alcoholic pancreatitis. HOME MEDICATIONS: - Tylenol - Refresh Optive eyedrops - ciprofloxacin 500 mg by mouth daily as maintenance for his underlying cirrhosis, which he has been on for the past 6 months and is due to complete in a couple of days - Uloric - folic acid - furosemide - Synthroid - Protonix - propranolol - spironolactone - thiamine PAST SURGICAL HISTORY: Appendectomy. Left hand tendon repair. Hernia. Hydrocele. Esophagogastroduodenoscopy (EGD) and colonoscopy 09/22/2017. SOCIAL HISTORY: Long-term alcoholic since the age of 21, currently drinking about two wine coolers almost daily since being diagnosed with cirrhosis in 2018. Tobacco denies. Drugs denies. Is a retired [employer] employee of [employer]. Lives at home with his . Denies any other chemical exposures. FAMILY HISTORY: Both parents are . Father had diabetes and a myocardial infarction ([place]). Mother had heart failure. Sister has Parkinson's. ALLERGIES: None. REVIEW OF SYSTEMS: General: Denies any fevers, chills, or weight loss. HEENT: Denies headache, blurred vision, eye pain, ear pain, dysphagia. Cardiac: Denies any chest pain, palpitations, or any new swelling. Respiratory: Denies any coughing, wheezing, shortness of breath. Gastrointestinal (GI): Admits to nausea and vomiting without any blood. Denies any dark tarry stools. No abdominal pain or changes in bowel habits. Skin: Denies any new rashes or lesions. Neurologic: Denies any new numbness or tingling of loss of sensation. Musculoskeletal: Denies any new pains or body aches. . PHYSICAL EXAMINATION: Vital signs: Temperature 97.9, pulse 80, respirations 18, blood pressure (BP) 140/67, pulse oximetry 96% on room air. General: Resting comfortably in bed. No acute distress. Alert and oriented times three. Pleasantly conversant. HEENT: Normocephalic, atraumatic. Extraocular muscles intact. Pupils equal, round, and reactive to light. Mild scleral icterus present. Moist mucous membranes. Neck: Supple. Cardiac: Regular rate and rhythm with a 2/6 systolic murmur heard best on the left 2nd intercostal space with radiation to the carotid. Normal S1 and S2. Lungs: Clear to auscultation bilaterally with equal chest rise. Abdomen: Soft, mild discomfort to deep palpation in the right upper quadrant. No rebound, guarding, or rigidity. Positive bowel sounds. Skin: No visible lesions or ulcerations. There is mild jaundice. Extremities: 2+ radial pulses in dorsalis pedis bilaterally. Trace pitting edema bilateral lower extremities. He is able to move all limbs. Neurological: Fully conversant and coherent. No asterixis. LABORATORIES: WBC 7.1, hemoglobin and hematocrit 14 and 39, platelets 88. Electrolytes normal. Lactate 2.8 on admission, normal as to 1.3 on recheck. Total bilirubin (T Bili) 3.4, direct bilirubin 1.8, AST and ALT 59 and 31, alkaline phosphatase 236, ammonia 53, lipase 28,431. Prothrombin time (PT)/international normalized ratio (INR) 50.7 and 1.23. Blood alcohol level negligible. CT abdomen and pelvis on admission reveals calculus in the gallbladder neck. Gallbladder is distended without any pericholecystic fluid. Faintly visible calcifications in gallbladder wall, possibly developing porcelain gallbladder. Probable cirrhosis without ascites. There is splenomegaly. No adenopathy or mass. No bowel distension or obstruction, and status post appendectomy. IMPRESSION AND PLAN: 1. Right upper quadrant pain with nausea and vomiting, likely due to alcoholic pancreatitis versus pancreatitis secondary to hypertriglyceridemia versus biliary colic. Infectious etiology unlikely, given clinical picture. Given abdominal pain and lipase of 28,000, will make the patient nothing by mouth. Start on intravenous (IV) fluids and pain control. Will recheck his lipase tomorrow. His lactate has normalized since his admission. There is a distended gallbladder noted on imaging, and he does have a history of gallstone pancreatitis in the past. We will reach out to GI and possibly surgery for consideration of a cholecystectomy versus an endoscopic retrograde cholangiopancreatography (ERCP). His bilirubin is elevated at 3.4, and direct bilirubin is 1.8. The patient states that he was in the process of setting up an outpatient cholecystectomy. Currently, he has no complaints, and continue with antiemetics and supportive care. Lipid panel pending. 2. Hyperalbuminemia. Level is 53. However, the patient is fully conversant and coherent. Will continue to monitor his mentation. 3. Alcoholic cirrhosis with esophageal varices and portal hypertensive gastropathy with a history of paracentesis times three. Thrombocytopenia is chronic, as well as his transaminitis, likely secondary to underlying liver disease. The patient admits to drinking two wine coolers 8 p.m. last night and states that he has cut down on his drinking since being diagnosed an alcoholic. He does not show any signs of withdrawal. He has been counseled on complete alcohol cessation. Will hold his home spironolactone and torsemide, as he is being hydrated for his pancreatitis. Continue folate and thiamine and his maintenance ciprofloxacin, which he is nearing the completion of a 6-month course as per his GI. 4. Hypothyroidism. Continue home Synthroid. 5. Hypertension. Continue home propranolol. 6. Gastroesophageal reflux disease. Continue home Protonix. 7. Deep venous thrombosis (DVT) prophylaxis. Mechanical given thrombocytopenia. DISPOSITION: Will admit to the hospitalist service and reach out to GI regarding possible ERCP. My faculty preceptor for this patient encounter was physically present during the encounter and was fully available. All aspects of the patient interview, examination, medical decision-making process, and medical care plan development were reviewed and approved by the faculty preceptor. The faculty preceptor is aware and concurs with the plan as stated in the body of this note and will attest to such by his/her cosignature. ANNALISA
[2018-07-14] MEDS: PROPRANOLOL 10 MG TAB PO SCH (13:43)
[2018-07-14 14:00] VITALS: BP 125/65
[2018-07-14 22:00] VITALS: BP 129/60
[2018-07-15] MEDS: LR 1,000 ML IV SCH (02:04)
[2018-07-15] MEDS: LEVOTHYROXINE 50MCG TABLET (0.05MG) PO SCH (05:43)
[2018-07-15 06:00] VITALS: BP 133/67
[2018-07-15 06:27] LABS: HEMATOCRIT 34.7 % (42.0-52.0); MEAN CORPUSCULAR HEMOGLOBIN 33.3 pg (27.0-33.0); MEAN CORPUSCULAR HGB CONC 34.9 g/dl (32.0-36.5); MEAN CORPUSCULAR VOLUME 95.6 fl (80.0-96.0); RED BLOOD COUNT 3.63 10^6/uL (4.30-6.10)
[2018-07-15 06:28] LABS: HEMOGLOBIN 12.1 g/dl (13.5-17.5); PLATELET COUNT, AUTOMATED 66 10^3/uL (150-450)
[2018-07-15 06:51] LABS: ALBUMIN 2.6 GM/DL (3.2-5.2); ALT/SGPT 23 U/L (12-78); BILIRUBIN,TOTAL 3.3 MG/DL (0.2-1.0); BLOOD UREA NITROGEN 11 MG/DL (7-18); CALCIUM LEVEL 8.4 MG/DL (8.8-10.2); CARBON DIOXIDE LEVEL 24 MEQ/L (21-32); CHLORIDE LEVEL 108 MEQ/L (98-107); CREATININE FOR GFR 0.68 MG/DL (0.70-1.30); GLOMERULAR FILTRATION RATE > 60.0 (>49); GLUCOSE, FASTING 89 MG/DL (70-100); LIPASE 261 U/L (73-393); POTASSIUM SERUM 3.5 MEQ/L (3.5-5.1); SODIUM LEVEL 140 MEQ/L (136-145); TOTAL PROTEIN 5.7 GM/DL (6.4-8.2)
[2018-07-15 08:56] VITALS: BP 133/67
[2018-07-15] MEDS: FOLIC ACID 1 MG TAB PO SCH (08:56)
[2018-07-15] MEDS: THIAMINE 100 MG TAB PO SCH (08:56)
[2018-07-15] MEDS: CIPROFLOXACIN 500 MG TAB PO SCH (08:56)
[2018-07-15] MEDS: PANTOPRAZOLE 40MG TAB (PROTONIX) PO SCH (08:56)
[2018-07-15] MEDS: PROPRANOLOL 10 MG TAB PO SCH (08:56)
--- NOTE | 2018-07-15 15:03 | DS.PDOC ---
Discharge Summary General Date of Admission Jul 14, 2018 at 09:16 Date of Discharge 07/15/2018 Attending Physician: ESA RYAN DO Discharge Summary PROCEDURES PERFORMED DURING STAY: None. ADMITTING DIAGNOSES: 1. Pancreatitis DISCHARGE DIAGNOSES: 1. Pancreatitis likely 2/2 alcohol vs gallstone 2. Cholelithiasis with distended gallbladder History of alcoholic pancreatitis. Hypertension. Hyperlipidemia. Gout. Hypothyroidism. Cirrhosis with esophageal varices and portal hypertensive gastropathy with a history of paracentesis x3 Gastroesophageal reflux disease (GERD). COMPLICATIONS/CHIEF COMPLAINT: Pancreatitis. HISTORY OF PRESENT ILLNESS: Mr. Rousseau is a 63-year-old male with a history of alcoholic cirrhosis and recent episode of alcoholic pancreatitis in December of 2017. He presents to the emergency room (ER) for right upper quadrant abdominal pain that woke him up from sleep around 1 a.m. this morning with associated nausea and vomiting. He states this feels similar to his previous episode of pancreatitis. He describes the pain as sharp and intermittent and nonradiating. Denies all other associated symptoms with pain. No hematemesis, hematochezia, or melena. Currently, at time of admission, his pain is currently controlled with morphine received in the ER. CT imaging of the abdomen revealed a distended gallbladder without any pericholecystic fluid, and his lipase was noted to be around 28,000 on admission. He is being admitted for presumed pancreatitis and distended gallbladder. HOSPITAL COURSE: Patient was admitted, made nothing by mouth and started on IV fluids. Case is discussed with GI, who did not feel he needed an ERCP given the has gallstones were at the gallbladder neck and not in the common bile duct or the head of the pancreas. Case was also discussed with general surgery, who rec ommended outpatient follow-up for elective cholecystectomy after his acute pancreatitis resolved. His alcohol was likely the etiology of pancreatitis given he had drank 2 "wine coolers" at 8 PM the night this started. Upon recheck the next morning, his lipase was down to normal on the 200s, and patient was requesting food. He tolerated his diet well and and was discontinued from IV fluids. Upon check, he did not require any antiemetics or pain medicine during his stay. He cleared home safety eval, and was counseled on alcohol abstinence and to follow-up with his regular GI doctor and PCP referral to surgeon for outpatient elective cholecystectomy. All questions answered. DISCHARGE MEDICATIONS: Please see below. ALLERGIES: Please see below. PHYSICAL EXAMINATION ON DISCHARGE: VITAL SIGNS: Please see below. General: Resting comfortably in bed. No acute distress. Alert and oriented times three. Pleasantly conversant. HEENT: Normocephalic, atraumatic. Extraocular muscles intact. Pupils equal, round, and reactive to light. Mild scleral icterus present. Moist mucous membranes. Neck: Supple. Cardiac: Regular rate and rhythm with a 2/6 systolic murmur heard best on the left 2nd intercostal space with radiation to the carotid. Normal S1 and S2. Lungs: Clear to auscultation bilaterally with equal chest rise. Abdomen: Soft, mild discomfort to deep palpation in the right upper quadrant. No rebound, guarding, or rigidity. Positive bowel sounds. Skin: No visible lesions or ulcerations. There is mild jaundice. Extremities: 2+ radial pulses in dorsalis pedis bilaterally. Trace pitting edema bilateral lower extremities. He is able to move all limbs. Neurological: Fully conversant and coherent. No asterixis. LABORATORY DATA: Please see below. IMAGIN07/14/18 CT abd/pelvis: There is a calculus in the gallbladder neck. The gallbladder is distended. There is no pericholecystic fluid. 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 Probable cirrhosis. No ascites. Splenomegaly. No adenopathy or mass. No bowel distension or obstruction. Appendectomy. PROGNOSIS: fair ACTIVITY: As tolerated. DIET: 2g sodium DISPOSITION: 01 Home, Self-Care. DISCHARGE INSTRUCTIONS: 1. Follow-up with PCP within a week 2. Return here for emergency 3. Follow up with surgeon for possible removal of gallbladder DISCHARGE CONDITION: Stable. TIME SPENT ON DISCHARGE: Greater than 35 minutes. Vital Signs/I&Os Vital Signs Date Time Temp Pulse Resp B/P (MAP) Pulse Ox O2 Delivery O2 Flow Rate FiO2 07/15/18 08:56 70 133/67 07/15/18 06:00 99.0 19 97 07/14/18 10:39 Room Air I&O- Last 24 Hours up to 6 AM 07/15/18 06:00 Intake Total 1500 ml Output Total 1775 ml Balance -275 ml Laboratory Data Labs 24H Laboratory Tests 2 07/15/18 05:37: Nucleated Red Blood Cells % (auto) 0.0, Anion Gap 8, Glomerular Filtration Rate > 60.0, Blood Urea Nitrogen 11, Creatinine 0.68L, Sodium Level 140, Potassium Level 3.5, Chloride Level 108H, Carbon Dioxide Level 24, Calcium Level 8.4L, Aspartate Amino Transf (AST/SGOT) 43H, Alanine Aminotransferase (ALT/SGPT) 23, Alkaline Phosphatase 129H, Total Bilirubin 3.3H, Total Protein 5.7#L, Albumin 2.6#L, Albumin/Globulin Ratio 0.84L, Lipase 261 CBC/BMP Laboratory Tests 07/15/18 05:37 Red Blood Count 3.63 L, Mean Corpuscular Volume 95.6, Mean Corpuscular Hemoglobin 33.3 H, Mean Corpuscular Hemoglobin Concent 34.9, Red Cell Distribution Width 13.1, Calcium Level 8.4 L, Aspartate Amino Transf (AST/SGOT) 43 H, Alanine Aminotransferase (ALT/SGPT) 23, Alkaline Phosphatase 129 H, Total Bilirubin 3.3 H, Total Protein 5.7 #L, Albumin 2.6 #L Discharge Medications Scheduled Ciprofloxacin HCl (Ciprofloxacin HCl) 500 Mg Tablet, 500 MG PO DAILY, (Reported) MAINTENANCE ANTIBIOTIC. HAS BEEN ON FOR 6 MONTHS. ONLY HAS A FEW DAYS LEFT UNTIL COMPLETED Folic Acid (Folic Acid) 1 Mg Tab, 1 MG PO DAILY, (Reported) Furosemide (Furosemide) 40 Mg Tab, 40 MG PO DAILY, (Reported) Levothyroxine Sodium (Synthroid) 50 Mcg Tab, 50 MCG PO DAILY, (Reported) Pantoprazole Sodium (Pantoprazole Sodium) 40 Mg Tab, 40 MG PO DAILY, (Reported) Propranolol HCl (Propranolol HCl) 10 Mg Tab, 10 MG PO DAILY, (Reported) Spironolactone (Spironolactone) 100 Mg Tab, 100 MG PO QHS, (Reported) Thiamine Hcl (Vitamin B-1) 100 Mg Tab, 100 MG PO DAILY Scheduled PRN Acetaminophen (Tylenol) 325 Mg Tablet, 650 MG PO Q4H PRN for PAIN, (Reported) Carboxymethylcellulos/Glycerin (Refresh Optive Eye Drops) 15 Ml Drops, 1 DROP OU PRN PRN for DRY EYES, (Reported) Febuxostat (Uloric) 40 Mg Tab, 40 MG PO DAILY PRN for GOUT, (Reported) Allergies Coded Allergies: No Known Allergies (Unverified , 4/11/19) GME ATTESTATION GME ATTESTATION My faculty preceptor for this patient encounter was physically present during the encounter and was fully available. All aspects of the patient interview, examination, medical decision making process, and medical care plan development were reviewed and approved by the faculty preceptor. The faculty preceptor is aware and concurs with the plan as stated in the body of this note and will attest to such by his/her cosignature. CHASIDY HO DO Jul 15, 2018 15:03
== END 2018-07-15 13:10 | disposition home or self-care (01) | DRG 282 ==
LOC: M ED 05:09 → M ED INP 09:16 → M MS5PR 11:00
PROVIDERS: ADMIT Internal Medicine; ATTEND Internal Medicine
DX: K85.20 Alcohol induced acute pancreatitis without necrosis or infection (principal); K76.6 Portal hypertension; I85.10 Secondary esophageal varices without bleeding; K70.30 Alcoholic cirrhosis of liver without ascites; I10 Essential (primary) hypertension; E78.5 Hyperlipidemia, unspecified; M10.9 Gout, unspecified; E03.9 Hypothyroidism, unspecified; K80.20 Calculus of gallbladder without cholecystitis without obstruction; K31.89 Other diseases of stomach and duodenum; F10.20 Alcohol dependence, uncomplicated; K21.9 Gastro-esophageal reflux disease without esophagitis; Z79.899 Other long term (current) drug therapy; Z90.49 Acquired absence of other specified parts of digestive tract

== ENCOUNTER → 2018-08-18 | Outpatient (CLI) | payer BC ==
[~2018-08-18] MED LIST changes: +ACET-907 PO; +CIPR500T3 PO; +OPTI0.5D5 OU; +PERCOCET PO
[2018-08-18 15:04] LABS: BASO # 0.1 10^3/uL (0.0-0.2); BASO % 1.1 % (0.0-1.0); EOS # 0.2 10^3/uL (0.0-0.50); EOS % 3.4 % (0.0-3.0); HEMATOCRIT 40.4 % (42.0-52.0); HEMOGLOBIN 14.1 g/dl (13.5-17.5); LYMPH % 19.6 % (24.0-44.0); MEAN CORPUSCULAR HEMOGLOBIN 33.2 pg (27.0-33.0); MEAN CORPUSCULAR HGB CONC 34.9 g/dl (32.0-36.5); MEAN CORPUSCULAR VOLUME 95.1 fl (80.0-96.0); MONO # 0.7 10^3/uL (0.0-0.8); MONO % 14.1 % (0.0-5.0); NEUTROPHILS # 3.2 10^3/uL (1.8-7.7); NEUTROPHILS % 61.4 % (36.0-66.0); RED BLOOD COUNT 4.25 10^6/uL (4.30-6.10); WHITE BLOOD COUNT 5.3 10^3/uL (4.0-10.0)
[2018-08-18 15:17] LABS: INR 1.2; PROTHROMBIN TIME 15.4 SECONDS (12.1-14.4)
[2018-08-18 15:18] LABS: ALBUMIN 3.3 GM/DL (3.2-5.2); ALT/SGPT 22 U/L (12-78); AMYLASE 52 U/L (25-115); BILIRUBIN,TOTAL 1.7 MG/DL (0.2-1.0); BLOOD UREA NITROGEN 12 MG/DL (7-18); CALCIUM LEVEL 9.3 MG/DL (8.8-10.2); CARBON DIOXIDE LEVEL 26 MEQ/L (21-32); CHLORIDE LEVEL 103 MEQ/L (98-107); CREATININE FOR GFR 0.78 MG/DL (0.70-1.30); GLOMERULAR FILTRATION RATE > 60.0 (>49); GLUCOSE, FASTING 191 MG/DL (70-100); LIPASE 141 U/L (73-393); MAGNESIUM LEVEL 1.7 MG/DL (1.8-2.4); SODIUM LEVEL 136 MEQ/L (136-145); TOTAL PROTEIN 7.1 GM/DL (6.4-8.2)
[2018-08-18 15:49] LABS: PLATELET COUNT, AUTOMATED 94 10^3/uL (150-450)
== END ==
LOC: M LAB 13:40
PROVIDERS: ATTEND Internal Medicine
DX: Z01.810 Encounter for preprocedural cardiovascular examination (principal); K80.81 Other cholelithiasis with obstruction; K70.9 Alcoholic liver disease, unspecified

== ENCOUNTER 2018-08-22 08:57 | Day surgery (SDC) | payer BC ==
[2018-08-22] VITALS (8 sets, daily range): BP systolic 116–147; BP diastolic 68–76
[~2018-08-22] VITALS: Ht 177.8 cm; Wt 80.7 kg
[~2018-08-22 08:57] MED LIST changes: +AMPICILLIN SOD/SULBACTAM SOD 3 GM in D5W MINI-BAG PLUS 100 ML IV SCH; +LR 1,000 ML IV SCH; -PERCOCET PO; +PROPOFOL 200 MG/20 ML VIAL As Ordered ONE
[2018-08-22] MEDS ORDERED: SUGAMMADEX SODIUM 500 MG/5 ML VIAL (BRIDION) As Ordered ONE (09:39)
[2018-08-22] MEDS ORDERED: PROPOFOL 200 MG/20 ML VIAL As Ordered ONE (09:43)
[2018-08-22] MEDS ORDERED: ONDANSETRON 4MG/2ML VIAL (J2405) As Ordered ONE (09:43)
[2018-08-22] MEDS ORDERED: LIDOCAINE 2% INJ 100 MG/5 ML SDV (FOR ANES.) As Ordered ONE (09:43)
[2018-08-22] MEDS ORDERED: ROCURONIUM BROMIDE 50 MG/5 ML VIAL As Ordered ONE ×2 (09:43→11:42)
[2018-08-22] MEDS ORDERED: dexameTHASONE 4 MG/ML 1ML VIAL (J1100) As Ordered ONE (09:43)
[2018-08-22] MEDS ORDERED: MIDAZOLAM INJ 2 MG/2 ML VIAL (J2250) As Ordered ONE (09:44)
[2018-08-22] MEDS ORDERED: fentaNYL 100 MCG/2 ML INJECTION (J3010) As Ordered ONE ×2 (09:44→11:50)
[2018-08-22] MEDS ORDERED: LIDOCAINE 1% SDV INJ 30 ML VIAL As Ordered ONE (10:18)
[2018-08-22] MEDS ORDERED: BUPIVACAINE HCL 0.25% 30 ML VIAL As Ordered ONE (10:18)
[2018-08-22] MEDS ORDERED: ePHEDrine SULFATE 25 MG/5 ML(5MG/ML) SYRINGE As Ordered ONE (11:23)
[2018-08-22] MEDS ORDERED: CALCIUM CHLORIDE 10% 1 GM/10 ML SYR As Ordered ONE (11:23)
[2018-08-22] MEDS ORDERED: KETOROLAC 60 MG/2 ML VIAL (J1885) As Ordered ONE (11:49)
[2018-08-22] MEDS ORDERED: ONDANSETRON 4MG/2ML VIAL (J2405) IV PRN ×2 (12:30→12:45)
[2018-08-22] MEDS ORDERED: PERCOCET 5MG/325MG TAB PO PRN ×2 (12:30)
[2018-08-22] MEDS ORDERED: FEBUXOSTAT 40 MG TABLET (ULORIC) PO PRN (12:30)
[2018-08-22] MEDS ORDERED: MORPHINE 4 MG/ML 1ML VIAL/SYRINGE (J2270) IV PRN (12:30)
[2018-08-22] MEDS ORDERED: METOCLOPRAMIDE INJ 10MG/2ML VIAL (J2765) IV PRN (12:45)
[2018-08-22] MEDS ORDERED: LR 1,000 ML IV SCH (12:45)
[2018-08-22] MEDS ORDERED: fentaNYL 100 MCG/2 ML INJECTION (J3010) IV PRN (12:45)
[2018-08-22] MEDS ORDERED: MEPERIDINE INJ 25 MG/ML VIAL (J2175) IV PRN (12:45)
[2018-08-22] MEDS: PERCOCET 5MG/325MG TAB PO PRN ×2 (12:59→13:40)
[2018-08-22] MEDS: OXAZEPAM 10 MG CAP PO SCH ×2 (13:45→20:24)
[2018-08-22] MEDS: THIAMINE 100 MG TAB PO SCH (13:46)
[2018-08-22] MEDS: PANTOPRAZOLE 40MG INJ (PROTONIX) (C9113) IV SCH (13:46)
[2018-08-22] MEDS: SENOKOT S TAB PO SCH ×2 (13:46→20:24)
[2018-08-22] MEDS: FUROSEMIDE 40 MG TAB PO SCH (13:46)
[2018-08-22] MEDS: FOLIC ACID 1 MG TAB PO SCH (13:46)
[2018-08-22] MEDS ORDERED: KETOROLAC 30 MG/ML VIAL (J1885) IV PRN (17:00)
[2018-08-22] MEDS: AMPICILLIN SOD/SULBACTAM SOD 3 GM in D5W MINI-BAG PLUS 100 ML IV SCH (18:36)
[2018-08-22] MEDS ORDERED: SPIRONOLACTONE 50 MG TAB PO SCH (21:00)
[2018-08-22] MEDS ORDERED: ENOXAPARIN 40 MG/0.4 ML SYRINGE (J1650) SC SCH (21:00)
[2018-08-23 02:00] VITALS: BP 94/58
[2018-08-23] MEDS: AMPICILLIN SOD/SULBACTAM SOD 3 GM in D5W MINI-BAG PLUS 100 ML IV SCH ×2 (03:35→10:50)
[2018-08-23 05:52] LABS: HEMATOCRIT 34.7 % (42.0-52.0); HEMOGLOBIN 12.3 g/dl (13.5-17.5); LYMPH # 0.5 10^3/uL (1.5-4.5); LYMPH % 6.7 % (24.0-44.0); MEAN CORPUSCULAR HEMOGLOBIN 32.8 pg (27.0-33.0); MEAN CORPUSCULAR HGB CONC 35.4 g/dl (32.0-36.5); MEAN CORPUSCULAR VOLUME 92.5 fl (80.0-96.0); MONO # 0.5 10^3/uL (0.0-0.8); MONO % 6.6 % (0.0-5.0); NEUTROPHILS # 5.9 10^3/uL (1.8-7.7); NEUTROPHILS % 86.3 % (36.0-66.0); RED BLOOD COUNT 3.75 10^6/uL (4.30-6.10); WHITE BLOOD COUNT 6.8 10^3/uL (4.0-10.0)
[2018-08-23 05:53] LABS: PLATELET COUNT, AUTOMATED 77 10^3/uL (150-450)
[2018-08-23 06:00] VITALS: BP 101/67
[2018-08-23] MEDS ORDERED: LEVOTHYROXINE 50MCG TABLET (0.05MG) PO SCH (06:00)
[2018-08-23 06:06] LABS: INR 1.41; PROTHROMBIN TIME 17.5 SECONDS (12.1-14.4)
[2018-08-23 06:24] LABS: ALBUMIN 2.8 GM/DL (3.2-5.2); ALT/SGPT 22 U/L (12-78); BILIRUBIN,TOTAL 2.5 MG/DL (0.2-1.0); BLOOD UREA NITROGEN 17 MG/DL (7-18); CALCIUM LEVEL 9.4 MG/DL (8.8-10.2); CARBON DIOXIDE LEVEL 26 MEQ/L (21-32); CHLORIDE LEVEL 100 MEQ/L (98-107); CREATININE FOR GFR 0.91 MG/DL (0.70-1.30); GLOMERULAR FILTRATION RATE > 60.0 (>49); GLUCOSE, FASTING 179 MG/DL (70-100); SODIUM LEVEL 134 MEQ/L (136-145); TOTAL PROTEIN 6.4 GM/DL (6.4-8.2)
[2018-08-23] MEDS: FOLIC ACID 1 MG TAB PO SCH (08:40)
[2018-08-23] MEDS: SENOKOT S TAB PO SCH (08:40)
[2018-08-23] MEDS: THIAMINE 100 MG TAB PO SCH (08:40)
[2018-08-23] MEDS: OXAZEPAM 10 MG CAP PO SCH (08:40)
[2018-08-23] MEDS: FUROSEMIDE 40 MG TAB PO SCH (08:40)
[2018-08-23] MEDS: PANTOPRAZOLE 40MG INJ (PROTONIX) (C9113) IV SCH (08:40)
[2018-08-23 08:41] VITALS: BP 121/61
[2018-08-23 08:41] LABS: BILIRUBIN,DIRECT 0.9 MG/DL (0.0-0.2)
[2018-08-23] MEDS ORDERED: ENOXAPARIN 30 MG/0.3 ML SYR (J1650) SC SCH (09:00)
[2018-08-23 10:00] VITALS: BP 115/60
[2018-08-23] MEDS ORDERED: PERCOCET PO (12:06)
--- NOTE | 2018-08-31 04:51 | ROOPDOC ---
[facility] Report Of Operation Report of Operation DATE OF PROCEDURE: 08/22/18 PREPROCEDURE DIAGNOSES: Symptomatic cholelithiasis, liver cirrhosis, history of gallstone pancreatitis. POSTPROCEDURE DIAGNOSES: Same. PROCEDURE: Laparoscopic cholecystectomy. SURGEON: Hosea Ornelas MD [employer] SUPERVISOR: MD Dr. Jessenia Zepeda assisted me throughout the course of the procedure with insertion of ports an aside, retraction of the gallbladder fundus, suctioning, closure of the port sites ANESTHESIA: General anesthesia. ESTIMATED BLOOD LOSS: Approximately 50 mL. COMPLICATIONS: None. SPECIMEN: Gallbladder PROCEDURE NOTE: 63-year-old male with alcoholic cirrhosis has been in and out of the hospital from pancreatitis initially presumed alcohol-related but despite him stopping alcohol continued to have bouts of pancreatitis now suspected to be gallstone-related he was subsequently sent to my clinic for evaluation for appropriateness of the laparoscopic cholecystectomy. Given the advanced cirrhosis site told him that he is at increased risk for bleeding during the procedure probably an increased need to convert to open surgery if bleeding is profuse and likewise at risk for decompensation of his cirrhosis perioperatively. Patient is aware of this risk and would like to proceed with surgery DESCRIPTION OF PROCEDURE: Patient was given a dose Unasyn 3 g IV preoperatively for prophylaxis. She was brought to the operating room, laid supine on the table, compression boots placed for DVT prophylaxis. General endotracheal anesthesia started. Her abdomen then prepped and draped in usual sterile fashion. Surgical timeout was performed prior to starting surgery. Entry into the abdomen done through an incision above the umbilicus. A Veress needle was inserted with a controlled fashion. CO2 insufflation started to pressure 15 mmHg. Using the same incision a 5 mm Visiport was placed under direct vision laparoscope. The area underneath the insertion site was inspected and no injury found. She was then placed in steep reverse Trendelenburg. Her right side was tilted up to further expose the gallbladder. Under direct vision a 11 mm epigastric port and 25 mm working ports placed along the right subcostal line. Operative findings: His liver is noted to be moderately enlarged, nodular and quite stiff. His gallbladder is moderately distended only minimally thick-walled. Her small amount of peritoneum overlying the underside of the liver also to the gallbladder and the lateral side. Her gallbladder is mildly thickened, mildly distended. No acute inflammation found. The fundus of the gallbladder was grasped and the gallbladder was elevated superiorly exposing the neck of the gallbladder. Given the patient's cirrhosis we were very careful on manipulating at the gallbladder.. The peritoneum overlying the area was opened up and dissected free both anteriorly and posteriorly to help with retraction of the gallbladder. The hepatocystic triangle was approached and dissected using a [place] and instrument. He has some mildly enlarged thin-appearing blood vessels either lymphatics or venous collaterals along the area of the medial and lateral side of the gallbladder the gallbladder wall that the clip through the control and prevent bleeding. The cystic duct was identified coming off from the next gallbladder this was circumferentially dissected. The cystic artery was identified in its usual position medially behind a small lymph node of Calot. This was similarly circumferentially dissected off surrounding adipose tissue. We continued posterior dissection proximally at the next gallbladder until a critical view of safety was achieved whereby only the previously identified duct and artery coursing through the neck the gallbladder. At this point the cystic artery was clipped 4 times and divided. After again checking her anatomy and verifying that the previously identified cystic duct, this was also clipped 4 times and divided. The rest of the gallbladder was then dissected free of the gallbladder bed using Bovie cautery. There was minimal bleeding at the lateral gallbladder attachments to the liver capsule this was easily controlled with Bovie cautery. The gallbladder was then placed in an Endo Catch bag and retrieved outside through the epigastric port site. Under i nsufflation and inspected the clips and noted this to be in place. No further bleeding noted. No bile leakage noted. I irrigated at the area especially at the liver bed and minor bleeding points were cauterized. I left at the seal fibrin glue at the liver bed and also at the stumps of the cystic duct and cystic artery. I did not leave a drain after was not much any active bleeding and I could see towards the end. The abdomen was insufflated all ports were removed. The epigastric fascial defect repaired with 0 Vicryl in a mattress fashion. Rest of the skin incisions closed with 4-0 Monocryl in subcuticular fashion. Steri- Strips and gauze dressings were placed, the wound. Patient was informed they awakened, extubated and brought to recovery room stable HOSEA ORNELAS MD August 31, 2018 04:51
== END 2018-08-23 13:09 | disposition home or self-care (01) ==
LOC: M SDC 08:57 → M MSPAV 13:26 → M SDC 08-23 13:09
PROVIDERS: ATTEND Surgery
DX: K80.10 Calculus of gallbladder with chronic cholecystitis without obstruction (principal); I10 Essential (primary) hypertension; E78.5 Hyperlipidemia, unspecified; D64.9 Anemia, unspecified; E03.9 Hypothyroidism, unspecified; M10.9 Gout, unspecified; K70.31 Alcoholic cirrhosis of liver with ascites; M19.90 Unspecified osteoarthritis, unspecified site; H26.9 Unspecified cataract; Z79.899 Other long term (current) drug therapy; Z87.19 Personal history of other diseases of the digestive system
CPT/HCPCS: 36415; 47562; 80053; 82248; 85025; 85049; 85055; 85610; 88304; A6024; C9113; J1100; J1650; J1885; J2250; J2405; J3010

== ENCOUNTER → 2019-01-10 | Outpatient (CLI) | payer BC, MEDICARE, SELFPAY ==
[~2019-01-10] MED LIST changes: -AMPICILLIN SOD/SULBACTAM SOD 3 GM in D5W MINI-BAG PLUS 100 ML IV SCH; -FEBU40TA PO; +FEBU40TA4 PO; -LR 1,000 ML IV SCH; +PERCOCET PO; -PROPOFOL 200 MG/20 ML VIAL As Ordered ONE; +ZANT150T40 PO; -ZANTTAB PO
[2019-01-10 10:12] LABS: BASO # 0.1 10^3/uL (0.0-0.2); BASO % 1.3 % (0.0-1.0); EOS # 0.2 10^3/uL (0.0-0.5); EOS % 4.3 % (0.0-3.0); HEMATOCRIT 40.8 % (42.0-52.0); HEMOGLOBIN 14.3 g/dl (13.5-17.5); LYMPH # 0.9 10^3/uL (1.5-5.0); LYMPH % 17.4 % (24.0-44.0); MEAN CORPUSCULAR HEMOGLOBIN 33.3 pg (27.0-33.0); MEAN CORPUSCULAR VOLUME 94.9 fl (80.0-96.0); MONO # 0.7 10^3/uL (0.0-0.8); MONO % 12.9 % (0.0-5.0); NEUTROPHILS # 3.4 10^3/uL (1.5-8.5); NEUTROPHILS % 63.7 % (36.0-66.0); WHITE BLOOD COUNT 5.3 10^3/uL (4.0-10.0)
[2019-01-10 10:18] LABS: PLATELET COUNT, AUTOMATED 91 10^3/uL (150-450)
--- NOTE | 2019-01-10 10:20 | REP ---
RIGHT UPPER QUADRANT ULTRASOUND: Real-time sonographic evaluation of the right upper quadrant performed. The patient has had a prior cholecystectomy. There is no evidence of intrahepatic or extrahepatic biliary dilatation. The common bile duct measures 6 mm maximally. There is heterogeneous coarsened echotexture of the liver without any discrete mass. The pancreas cannot be seen due to overlying bowel gas. Right kidney demonstrates no hydronephrosis with normal size 9.8 cm in length. Two somewhat linear echogenic foci are seen in the mid right renal cortex measuring 5 mm and 6 mm. These may represent small calcifications. There is no ascites. IMPRESSION: Status post cholecystectomy without biliary dilatation. Diffuse heterogeneous echotexture of the liver with no gross mass. Electronically Signed by Thomas Wiseman MD 01/10/2019 10:32 A
[2019-01-10 10:21] LABS: INR 1.3
[2019-01-10 10:22] LABS: PARTIAL THROMBOPLASTIN TIME 36.4 SECONDS (25.0-38.4)
[2019-01-10 10:42] LABS: ALBUMIN 3.3 GM/DL (3.2-5.2); ALT/SGPT 21 U/L (12-78); BILIRUBIN,DIRECT 0.9 MG/DL (0.0-0.2); BILIRUBIN,TOTAL 2.5 MG/DL (0.2-1.0); BLOOD UREA NITROGEN 15 MG/DL (7-18); CALCIUM LEVEL 9.2 MG/DL (8.8-10.2); CARBON DIOXIDE LEVEL 28 MEQ/L (21-32); CHLORIDE LEVEL 101 MEQ/L (98-107); CREATININE FOR GFR 0.83 MG/DL (0.70-1.30); GLOMERULAR FILTRATION RATE > 60.0 (>49); GLUCOSE, FASTING 164 MG/DL (70-100); IRON (FE) 246 UG/DL (65-175); PERCENT SATURATION 77.4 % (19.7-50.0); POTASSIUM SERUM 3.5 MEQ/L (3.5-5.1); SODIUM LEVEL 139 MEQ/L (136-145); TOTAL IRON BINDING CAPACITY 318 UG/DL (250-450); TOTAL PROTEIN 6.9 GM/DL (6.4-8.2)
== END ==
LOC: M RAD 09:17
PROVIDERS: ATTEND Internal Medicine Gastroenterology
DX: K70.31 Alcoholic cirrhosis of liver with ascites (principal); R94.5 Abnormal results of liver function studies; Z90.49 Acquired absence of other specified parts of digestive tract

== ENCOUNTER → 2019-03-14 | Outpatient (CLI) | payer MEDICARE ==
[2019-03-14 15:29] LABS: BASO # 0.1 10^3/uL (0.0-0.2); EOS # 0.2 10^3/uL (0.0-0.5); EOS % 3.7 % (0.0-3.0); HEMATOCRIT 41.9 % (42.0-52.0); HEMOGLOBIN 14.3 g/dl (13.5-17.5); LYMPH # 0.9 10^3/uL (1.5-5.0); LYMPH % 14.5 % (24.0-44.0); MEAN CORPUSCULAR HGB CONC 34.1 g/dl (32.0-36.5); MEAN CORPUSCULAR VOLUME 96.8 fl (80.0-96.0); MONO # 0.7 10^3/uL (0.0-0.8); MONO % 11.3 % (0.0-5.0); NEUTROPHILS # 4.1 10^3/uL (1.5-8.5); NEUTROPHILS % 69.2 % (36.0-66.0); RED BLOOD COUNT 4.33 10^6/uL (4.30-6.10)
[2019-03-14 15:35] LABS: PLATELET COUNT, AUTOMATED 88 10^3/uL (150-450)
[2019-03-14 15:53] LABS: PERCENT SATURATION 94.7 % (19.7-50.0)
== END ==
LOC: M LAB 14:42
PROVIDERS: ATTEND Internal Medicine Gastroenterology
DX: K70.30 Alcoholic cirrhosis of liver without ascites (principal)

== ENCOUNTER → 2019-03-14 | Outpatient (REF) | payer MEDICARE ==
[2019-03-17 12:24] LABS: ALBUMIN 3.4 GM/DL (3.2-5.2); ALT/SGPT 25 U/L (12-78); BILIRUBIN,TOTAL 3.7 MG/DL (0.2-1.0); BLOOD UREA NITROGEN 12 MG/DL (7-18); CALCIUM LEVEL 8.7 MG/DL (8.8-10.2); CARBON DIOXIDE LEVEL 23 MEQ/L (21-32); CHLORIDE LEVEL 101 MEQ/L (98-107); CREATININE FOR GFR 0.78 MG/DL (0.70-1.30); GLOMERULAR FILTRATION RATE > 60.0 (>49); GLUCOSE, FASTING 213 MG/DL (70-100); SODIUM LEVEL 133 MEQ/L (136-145); URIC ACID 3.4 MG/DL (3.5-7.2)
== END ==
LOC: M LAB REF 11:48
PROVIDERS: ATTEND Internal Medicine
DX: E11.9 Type 2 diabetes mellitus without complications (principal); K70.9 Alcoholic liver disease, unspecified; E78.2 Mixed hyperlipidemia

== ENCOUNTER → 2019-03-17 | Outpatient (CLI) | payer MEDICARE ==
[2019-03-17 17:59] LABS: BASO # 0.1 10^3/uL (0.0-0.2); BASO % 1.2 % (0.0-1.0); EOS # 0.3 10^3/uL (0.0-0.5); EOS % 4.9 % (0.0-3.0); HEMATOCRIT 43.3 % (42.0-52.0); HEMOGLOBIN 14.9 g/dl (13.5-17.5); LYMPH # 0.9 10^3/uL (1.5-5.0); LYMPH % 13.1 % (24.0-44.0); MEAN CORPUSCULAR HEMOGLOBIN 32.7 pg (27.0-33.0); MEAN CORPUSCULAR HGB CONC 34.4 g/dl (32.0-36.5); MONO # 0.7 10^3/uL (0.0-0.8); MONO % 10.1 % (0.0-5.0); NEUTROPHILS # 4.7 10^3/uL (1.5-8.5); NEUTROPHILS % 70.4 % (36.0-66.0); RED BLOOD COUNT 4.56 10^6/uL (4.30-6.10); WHITE BLOOD COUNT 6.7 10^3/uL (4.0-10.0)
[2019-03-17 18:09] LABS: PLATELET COUNT, AUTOMATED 86 10^3/uL (150-450)
== END ==
LOC: M LAB 17:03
PROVIDERS: ATTEND Internal Medicine
DX: E78.2 Mixed hyperlipidemia (principal)

== ENCOUNTER → 2019-05-02 | Outpatient (CLI) | payer MEDICARE ==
[2019-05-02 13:47] LABS: HEMOGLOBIN 14.7 g/dl (13.5-17.5); MEAN CORPUSCULAR HEMOGLOBIN 32.7 pg (27.0-33.0); MEAN CORPUSCULAR HGB CONC 34.2 g/dl (32.0-36.5); MEAN CORPUSCULAR VOLUME 95.6 fl (80.0-96.0); WHITE BLOOD COUNT 5.1 10^3/uL (4.0-10.0)
[2019-05-02 13:48] LABS: PLATELET COUNT, AUTOMATED 77 10^3/uL (150-450)
[2019-05-02 14:14] LABS: HEMOGLOBIN A1c 7.8 %
[2019-05-02 14:23] LABS: ALBUMIN 3.4 GM/DL (3.2-5.2); ALT/SGPT 22 U/L (12-78); BLOOD UREA NITROGEN 11 MG/DL (7-18); CARBON DIOXIDE LEVEL 27 MEQ/L (21-32); CHLORIDE LEVEL 97 MEQ/L (98-107); CREATININE FOR GFR 0.74 MG/DL (0.70-1.30); GLOMERULAR FILTRATION RATE > 60.0 (>49); GLUCOSE, FASTING 214 MG/DL (70-100); POTASSIUM SERUM 3.6 MEQ/L (3.5-5.1); SODIUM LEVEL 133 MEQ/L (136-145); TOTAL PROTEIN 7.3 GM/DL (6.4-8.2)
== END ==
LOC: M LAB 13:11
PROVIDERS: ATTEND Internal Medicine
DX: R73.01 Impaired fasting glucose (principal); K70.9 Alcoholic liver disease, unspecified; D64.9 Anemia, unspecified

== ENCOUNTER → 2019-07-21 | Outpatient (CLI) | payer MEDICARE ==
[~2019-07-21] MED LIST changes: +ACET-683 PO; +MAGN64TASA PO
[2019-07-21 10:24] LABS: BASO # 0.1 10^3/uL (0.0-0.2); BASO % 1.2 % (0.0-1.0); EOS # 0.3 10^3/uL (0.0-0.5); EOS % 5.3 % (0.0-3.0); HEMATOCRIT 42.5 % (42.0-52.0); HEMOGLOBIN 14.9 g/dl (13.5-17.5); LYMPH # 1.3 10^3/uL (1.5-5.0); MEAN CORPUSCULAR HEMOGLOBIN 34.4 pg (27.0-33.0); MEAN CORPUSCULAR HGB CONC 35.1 g/dl (32.0-36.5); MEAN CORPUSCULAR VOLUME 98.2 fl (80.0-96.0); MONO # 0.8 10^3/uL (0.0-0.8); MONO % 16.6 % (0.0-5.0); NEUTROPHILS # 2.4 10^3/uL (1.5-8.5); NEUTROPHILS % 49.5 % (36.0-66.0); RED BLOOD COUNT 4.33 10^6/uL (4.30-6.10); WHITE BLOOD COUNT 4.9 10^3/uL (4.0-10.0)
[2019-07-21 10:29] LABS: PLATELET COUNT, AUTOMATED 96 10^3/uL (150-450)
[2019-07-21 10:51] LABS: ALBUMIN 3.3 GM/DL (3.2-5.2); BILIRUBIN,DIRECT 0.6 MG/DL (0.0-0.2); BILIRUBIN,TOTAL 1.1 MG/DL (0.2-1.0); PERCENT SATURATION 25.6 % (19.7-50.0); TOTAL PROTEIN 7.4 GM/DL (6.4-8.2)
--- NOTE | 2019-07-21 12:10 | REP ---
REASON: Followup. Prior exam of 01/10/2019 showed fatty infiltration of the liver. Once again, diffuse increased echoes are seen throughout the hepatic parenchymal with a coarsened echotexture. The appearance of this is unchanged. There is a micronodular surface to the liver difficult to evaluate with ultrasound. No gross masses have developed. No gross intrahepatic or extrahepatic ductal dilatation has developed. The common bile duct measures 3 mm. There is no change in the pancreas or right kidney. The patient is status post cholecystectomy. There is no free fluid in the abdomen. IMPRESSION: No significant change from the prior exam. Parenchymal echo pattern as described above. This needs to be correlated clinically. Cirrhosis versus fatty infiltrate in a geographic fashion. Electronically Signed by Mendez Mcneil DO 07/21/2019 12:13 P
== END ==
LOC: M RAD 09:30
PROVIDERS: ATTEND Internal Medicine Gastroenterology
DX: K70.31 Alcoholic cirrhosis of liver with ascites (principal); R94.5 Abnormal results of liver function studies

== ENCOUNTER → 2019-09-23 | Outpatient (CLI) | payer MEDICARE | LOC: M LABSMTC 08:54 | PROVIDERS: ATTEND Anesthesiology | DX: Z11.59 Encounter for screening for other viral diseases (principal) | CPT/HCPCS: C9803; U0003 ==

== ENCOUNTER 2019-09-26 10:11 | Day surgery (SDC) | payer MEDICARE ==
[~2019-09-26] VITALS: Ht 177.8 cm; Wt 83.4 kg
[~2019-09-26 10:11] MED LIST changes: +LIDOCAINE 2% 100MG/5ML SDV (FOR ANES.) As Ordered ONE; +NS 1,000 ML IV ONE; +propofoL 200 MG/20 ML VIAL As Ordered ONE
[2019-09-26] MEDS ORDERED: propofoL 200 MG/20 ML VIAL As Ordered ONE (11:48)
--- NOTE | 2019-09-26 12:14 | ROOR ---
Patient Name: Jurgen Rousseau Procedure Date: 09/26/2019 11:10 AM Date of : 1955 Age: 64 Room: [facility] Gender: Male Note Status: Finalized Procedure: Colonoscopy Indications: High risk colon cancer surveillance: Personal history of colonic polyps Providers: Hakan Manuel MD Referring MD: BLU MELARA MD Requesting Provider: Medicines: Monitored Anesthesia Care Complications: No immediate complications. Procedure: Pre-Anesthesia Assessment: - Prior to the procedure, a History and Physical was performed, and patient medications and allergies were reviewed. The patient is competent. The risks and benefits of the procedure and the sedation options and risks were discussed with the patient. All questions were answered and informed consent was obtained. Patient identification and proposed procedure were verified by the physician, the nurse and the anesthesiologist in the procedure room. Mental Status Examination: alert and oriented. Airway Examination: normal oropharyngeal airway and neck mobility. Respiratory Examination: clear to auscultation. CV Examination: normal. Prophylactic Antibiotics: The patient does not require prophylactic antibiotics. Prior Anticoagulants: The patient has taken no previous anticoagulant or antiplatelet agents. ASA Grade Assessment: III - A patient with severe systemic disease. After reviewing the risks and benefits, the patient was deemed in satisfactory condition to undergo the procedure. The anesthesia plan was to use monitored anesthesia care (MAC). Immediately prior to administration of medications, the patient was re-assessed for adequacy to receive sedatives. The heart rate, respiratory rate, oxygen saturations, blood pressure, adequacy of pulmonary ventilation, and response to care were monitored throughout the procedure. The physical status of the patient was re-assessed after the procedure. The Colonoscope was introduced through the anus and advanced to the terminal ileum, with identification of the appendiceal orifice and IC valve. The colonoscopy was performed without difficulty. The patient tolerated the procedure well. The quality of the bowel preparation was good. The terminal ileum, ileocecal valve, appendiceal orifice, and rectum were photographed. Scope insertion time was 3 minutes. Scope withdrawal time was 8 minutes. The total duration of the procedure was 12 minutes. Findings: The perianal and digital rectal examinations were normal. The terminal ileum appeared normal. Five sessile polyps were found in the descending colon, transverse colon, ascending colon and cecum. The polyps were 4 to 10 mm in size. These polyps were removed with a hot snare. Resection and retrieval were complete. For hemostasis, three hemostatic clips were successfully placed. There was no bleeding at the end of the procedure. Verification of patient identification for the specimen was done by the physician and nurse using the patient's name, date and medical record number. Estimated blood loss was minimal. A few small-mouthed diverticula were found in the sigmoid colon. There was no evidence of diverticular bleeding. Non-bleeding external and internal hemorrhoids were found during retroflexion. The hemorrhoids were large. Impression: - The examined portion of the ileum was normal. - Five 4 to 10 mm polyps in the descending colon, in the transverse colon, in the ascending colon and in the cecum, removed with a hot snare. Resected and retrieved. Clips were placed. - Mild diverticulosis in the sigmoid colon. There was no evidence of diverticular bleeding. - Non-bleeding external and internal hemorrhoids. Recommendation: - Patient has a contact number available for emergencies. The signs and symptoms of potential delayed complications were discussed with the patient. Return to normal activities tomorrow. Written discharge instructions were provided to the patient. - Resume previous diet. - Continue present medications. - Await pathology results. - Repeat colonoscopy in 3 - 5 years for surveillance of multiple polyps. - Telephone GI clinic for pathology results in 2 weeks. - Return to primary care physician. Hakan Manuel MD Hakan Manuel MD 09/26/2019 12:13:48 PM Electronically signed by Hakan Manuel MD Number of Addenda: 0 Note Initiated On: 09/26/2019 11:10 AM Estimated Blood Loss: Estimated blood loss was minimal.
[2019-09-26 12:31] VITALS: BP 108/56
[2019-09-26] MEDS ORDERED: HumuLIN R (REGULAR) INSULIN (NovoLIN R) **100U/ML** PER UNIT As Ordered ONE (13:59)
== END 2019-09-26 12:35 | disposition home or self-care (01) ==
LOC: M OPP 10:11
PROVIDERS: ATTEND Internal Medicine Gastroenterology
DX: K63.5 Polyp of colon (principal); K57.30 Diverticulosis of large intestine without perforation or abscess without bleeding; K64.8 Other hemorrhoids; Z86.010 Personal history of colon polyps; Z09 Encounter for follow-up examination after completed treatment for conditions other than malignant neoplasm; Z79.899 Other long term (current) drug therapy

== ENCOUNTER → 2020-01-23 | Outpatient (CLI) | payer MEDICARE ==
[~2020-01-23] MED LIST changes: -LIDOCAINE 2% 100MG/5ML SDV (FOR ANES.) As Ordered ONE; -NS 1,000 ML IV ONE; +PANT40TA29 PO; -PANT40TA3 PO; -propofoL 200 MG/20 ML VIAL As Ordered ONE
[2020-01-23 09:43] LABS: BLOOD UREA NITROGEN 12 MG/DL (7-18); CALCIUM LEVEL 9.1 MG/DL (8.8-10.2); CARBON DIOXIDE LEVEL 26 MEQ/L (21-32); CHLORIDE LEVEL 93 MEQ/L (98-107); CREATININE FOR GFR 0.88 MG/DL (0.70-1.30); GLOMERULAR FILTRATION RATE > 60.0 (>49); GLUCOSE, FASTING 240 MG/DL (70-100); POTASSIUM SERUM 3.2 MEQ/L (3.5-5.1); SODIUM LEVEL 130 MEQ/L (136-145)
== END ==
LOC: M RAD 08:05
PROVIDERS: ATTEND Internal Medicine Gastroenterology
DX: K70.31 Alcoholic cirrhosis of liver with ascites (principal); R94.5 Abnormal results of liver function studies

== ENCOUNTER → 2020-01-29 | Outpatient (CLI) | payer MEDICARE ==
--- NOTE | 2020-01-29 09:53 | REP ---
INDICATION: ABN LIVER FUNCTION TEST CIRRHOSIS. COMPARISON: 07/21/2019 TECHNIQUE: Real-time sonographic evaluation of right upper quadrant performed. FINDINGS: The patient has had a prior cholecystectomy. There is no intrahepatic or extrahepatic biliary dilatation, common bile duct measures 5 mm in maximum diameter. Liver demonstrates diffuse coarsened heterogeneous echotexture suggesting diffuse fibrofatty infiltration. No gross liver masses seen. Pancreas is not seen due to overlying bowel gas. Right kidney demonstrates no hydronephrosis with normal size 11.7 cm in length. No ascites is seen. IMPRESSION: Status post cholecystectomy. No biliary disease of dilatation or free fluid. Diffuse heterogeneous coarsened echotexture compatible with diffuse fibrofatty infiltration. <Electronically signed by Thomas Wiseman > 01/29/20 [id number]
== END ==
LOC: M RAD 08:24
PROVIDERS: ATTEND Internal Medicine Gastroenterology
DX: R94.5 Abnormal results of liver function studies (principal); K70.31 Alcoholic cirrhosis of liver with ascites

== ENCOUNTER → 2020-04-16 | Outpatient (CLI) | payer MEDICARE ==
[~2020-04-16] MED LIST changes: +GABA-282 PO; -GABA-843 PO
[2020-04-16 16:51] LABS: HEMATOCRIT 43.3 % (42.0-52.0); HEMOGLOBIN 14.5 g/dl (13.5-17.5); MEAN CORPUSCULAR HEMOGLOBIN 34.7 pg (27.0-33.0); MEAN CORPUSCULAR HGB CONC 33.5 g/dl (32.0-36.5); MEAN CORPUSCULAR VOLUME 103.6 fl (80.0-96.0); RED BLOOD COUNT 4.18 10^6/uL (4.30-6.10); WHITE BLOOD COUNT 4.6 10^3/uL (4.0-10.0)
[2020-04-16 16:52] LABS: PLATELET COUNT, AUTOMATED 70 10^3/uL (150-450)
[2020-04-16 17:18] LABS: HEMOGLOBIN A1c 8.2 %
[2020-04-16 17:26] LABS: ALBUMIN 3.3 GM/DL (3.2-5.2); ALT/SGPT 22 U/L (12-78); BILIRUBIN,TOTAL 3.2 MG/DL (0.2-1.0); BLOOD UREA NITROGEN 9 MG/DL (7-18); CALCIUM LEVEL 9.3 MG/DL (8.8-10.2); CARBON DIOXIDE LEVEL 25 MEQ/L (21-32); CHLORIDE LEVEL 105 MEQ/L (98-107); CREATININE FOR GFR 0.74 MG/DL (0.70-1.30); GLOMERULAR FILTRATION RATE > 60.0 (>49); GLUCOSE, FASTING 216 MG/DL (70-100); POTASSIUM SERUM 3.7 MEQ/L (3.5-5.1); SODIUM LEVEL 137 MEQ/L (136-145); TOTAL PROTEIN 7.6 GM/DL (6.4-8.2); URIC ACID 2.7 MG/DL (3.5-7.2)
== END ==
LOC: M LAB 16:17
PROVIDERS: ATTEND Internal Medicine
DX: D64.9 Anemia, unspecified (principal); E11.9 Type 2 diabetes mellitus without complications; E03.9 Hypothyroidism, unspecified; M10.9 Gout, unspecified; K70.31 Alcoholic cirrhosis of liver with ascites

== ENCOUNTER → 2020-04-16 | Outpatient (CLI) | payer MEDICARE | LOC: M LAB 16:14 | PROVIDERS: ATTEND Internal Medicine Gastroenterology | DX: K70.31 Alcoholic cirrhosis of liver with ascites (principal) ==

== ENCOUNTER → 2020-07-22 | Outpatient (CLI) | payer MEDICARE ==
--- NOTE | 2020-07-22 09:19 | REP ---
INDICATION: ALCOHOLIC CIRRHOSIS OF LIVER WITH ASCITES PT HAS LABS AFTER COMPARISON: 01/29/2020 TECHNIQUE: Real time vasquez scale ultrasound examination using curved array transducer. FINDINGS: Liver demonstrates coarsened echotexture consistent with the given history of cirrhosis. No obvious focal hepatic lesion or ascites identified by ultrasound. Limited evaluation of the pancreas is unremarkable. Patient is noted to be status post cholecystectomy. No biliary ductal dilatation is appreciated and the common bile duct measures 5 mm diameter. Right kidney is normal in reniform shape without hydronephrosis and measures 11.0 x 4.8 x 6.0 cm. IMPRESSION: Findings consistent with cirrhosis. No focal hepatic lesion or ascites. <Electronically signed by Alex Melton > 07/22/20 0915
[2020-07-22 10:10] LABS: INR 1.4; PROTHROMBIN TIME 17.4 SECONDS (12.5-14.3)
[2020-07-22 10:11] LABS: PARTIAL THROMBOPLASTIN TIME 38.6 SECONDS (24.2-38.5)
[2020-07-22 11:01] LABS: ALBUMIN 3.1 GM/DL (3.2-5.2); ALT/SGPT 19 U/L (12-78); BILIRUBIN,DIRECT 2.5 MG/DL (0.0-0.2); BILIRUBIN,TOTAL 5.1 MG/DL (0.2-1.0); BLOOD UREA NITROGEN 9 MG/DL (7-18); CALCIUM LEVEL 8.9 MG/DL (8.8-10.2); CARBON DIOXIDE LEVEL 23 MEQ/L (21-32); CHLORIDE LEVEL 101 MEQ/L (98-107); CREATININE FOR GFR 0.62 MG/DL (0.70-1.30); FERRITIN 332 NG/ML (26-388); GLOMERULAR FILTRATION RATE > 60.0 (>49); GLUCOSE, FASTING 198 MG/DL (70-100); IRON (FE) 191 UG/DL (65-175); PERCENT SATURATION 65.2 % (19.7-50.0); POTASSIUM SERUM 3.4 MEQ/L (3.5-5.1); SODIUM LEVEL 134 MEQ/L (136-145); TOTAL IRON BINDING CAPACITY 293 UG/DL (250-450); TOTAL PROTEIN 7.8 GM/DL (6.4-8.2)
== END ==
LOC: M LAB 08:45
PROVIDERS: ATTEND Internal Medicine Gastroenterology
DX: K70.31 Alcoholic cirrhosis of liver with ascites (principal); E03.9 Hypothyroidism, unspecified; Z79.899 Other long term (current) drug therapy

== ENCOUNTER → 2020-07-22 | Outpatient (CLI) | payer MEDICARE ==
[2020-07-22 10:09] LABS: HEMATOCRIT 42.6 % (42.0-52.0); HEMOGLOBIN 14.7 g/dl (13.5-17.5); MEAN CORPUSCULAR HEMOGLOBIN 33.6 pg (27.0-33.0); MEAN CORPUSCULAR HGB CONC 34.5 g/dl (32.0-36.5); MEAN CORPUSCULAR VOLUME 97.3 fl (80.0-96.0); RED BLOOD COUNT 4.38 10^6/uL (4.30-6.10); WHITE BLOOD COUNT 5.9 10^3/uL (4.0-10.0)
[2020-07-22 10:12] LABS: PLATELET COUNT, AUTOMATED 71 10^3/uL (150-450)
[2020-07-22 11:07] LABS: ALBUMIN 3.1 GM/DL (3.2-5.2); ALT/SGPT 18 U/L (12-78); BILIRUBIN,TOTAL 5.2 MG/DL (0.2-1.0); BLOOD UREA NITROGEN 10 MG/DL (7-18); CALCIUM LEVEL 9.2 MG/DL (8.8-10.2); CARBON DIOXIDE LEVEL 23 MEQ/L (21-32); CHLORIDE LEVEL 101 MEQ/L (98-107); CREATININE FOR GFR 0.65 MG/DL (0.70-1.30); GLOMERULAR FILTRATION RATE > 60.0 (>49); GLUCOSE, FASTING 199 MG/DL (70-100); POTASSIUM SERUM 3.4 MEQ/L (3.5-5.1); SODIUM LEVEL 134 MEQ/L (136-145); TOTAL PROTEIN 7.9 GM/DL (6.4-8.2)
[2020-07-22 16:28] LABS: HEMOGLOBIN A1c 8.4 %
== END ==
LOC: M LAB 08:47
PROVIDERS: ATTEND Internal Medicine
DX: E03.9 Hypothyroidism, unspecified (principal)

== ENCOUNTER → 2020-08-04 | Outpatient (CLI) | payer MEDICARE | LOC: M LABSMTC 10:09 | PROVIDERS: ATTEND Anesthesiology | DX: Z01.818 Encounter for other preprocedural examination (principal); Z11.52 Encounter for screening for COVID-19 ==

== ENCOUNTER 2020-08-09 12:45 | Day surgery (SDC) | payer MEDICARE ==
[~2020-08-09] VITALS: Ht 177.8 cm; Wt 81.6 kg
[~2020-08-09 12:45] MED LIST changes: +NS 1,000 ML IV ONE
[2020-08-09] MEDS ORDERED: fentaNYL 100 MCG/2 ML INJECTION (J3010) As Ordered ONE (15:11)
[2020-08-09] MEDS ORDERED: propofoL 200 MG/20 ML VIAL As Ordered ONE ×2 (15:11→15:26)
[2020-08-09] MEDS ORDERED: LIDOCAINE 2% 100MG/5ML SDV (FOR ANES.) As Ordered ONE (15:11)
--- NOTE | 2020-08-09 15:40 | ROOR ---
Patient Name: Jurgen Rousseau Procedure Date: 08/09/2020 3:14 PM Date of : 1955 Age: 65 Room: [facility] Gender: Male Note Status: Finalized Procedure: Upper GI endoscopy Indications: Follow-up of esophageal varices, For therapy of esophageal varices Providers: Hakan Manuel MD Referring MD: BLU MELARA MD Requesting Provider: Medicines: Monitored Anesthesia Care Complications: No immediate complications. Procedure: Pre-Anesthesia Assessment: - Prior to the procedure, a History and Physical was performed, and patient medications and allergies were reviewed. The patient is competent. The risks and benefits of the procedure and the sedation options and risks were discussed with the patient. All questions were answered and informed consent was obtained. Patient identification and proposed procedure were verified by the physician, the nurse and the anesthesiologist in the procedure room. Mental Status Examination: alert and oriented. Airway Examination: normal oropharyngeal airway and neck mobility. Respiratory Examination: clear to auscultation. CV Examination: normal. Prophylactic Antibiotics: The patient does not require prophylactic antibiotics. Prior Anticoagulants: The patient has taken no previous anticoagulant or antiplatelet agents. ASA Grade Assessment: III - A patient with severe systemic disease. After reviewing the risks and benefits, the patient was deemed in satisfactory condition to undergo the procedure. The anesthesia plan was to use monitored anesthesia care (MAC). Immediately prior to administration of medications, the patient was re-assessed for adequacy to receive sedatives. The heart rate, respiratory rate, oxygen saturations, blood pressure, adequacy of pulmonary ventilation, and response to care were monitored throughout the procedure. The physical status of the patient was re-assessed after the procedure. The Endoscope was introduced through the mouth, and advanced to the second part of duodenum. The upper GI endoscopy was accomplished without difficulty. The patient tolerated the procedure well. Findings: Three columns of grade III, large (> 5 mm) varices were found in the lower third of the esophagus,. No stigmata of recent bleeding were evident and no red lanny signs were present. Three bands were successfully placed with complete eradication, resulting in deflation of varices. There was no bleeding at the end of the procedure. Moderate portal hypertensive gastropathy was found in the gastric fundus, in the gastric body and in the gastric antrum. The duodenal bulb, second portion of the duodenum and third portion of the duodenum were normal. Impression: - Non-bleeding grade III and large (> 5 mm) esophageal varices. Completely eradicated. Banded. - Portal hypertensive gastropathy. - Normal duodenal bulb, second portion of the duodenum and third portion of the duodenum. - No specimens collected. Recommendation: - Patient has a contact number available for emergencies. The signs and symptoms of potential delayed complications were discussed with the patient. Return to normal activities tomorrow. Written discharge instructions were provided to the patient. - Full liquid diet today, then advance as tolerated to high fiber diet and low sodium diet. - Continue present medications. - Await pathology results. - Use Protonix (pantoprazole) 40 mg PO twice daily - to be taken in morning (1/2 hour before breakfast) and at bedtime ( atleast 3 hours after last meal) for 8 weeks. - Return to GI clinic in [facility] (address [address], [address], [place], [address]) in 4 -- 6 weeks. Please call GI clinic @ [phone] for apppointment date and time. - Return to primary care physician. Procedure Code(s): --- Professional --- 62545, Esophagogastroduodenoscopy, flexible, transoral; with band ligation of esophageal/gastric varices Diagnosis Code(s): --- Professional --- I85.00, Esophageal varices without bleeding K76.6, Portal hypertension K31.89, Other diseases of stomach and duodenum CPT copyright 2019 [employer]. All rights reserved. The codes documented in this report are preliminary and upon smoking pipe mounter review may be revised to meet current compliance requirements. Hakan Manuel MD Hakan Manuel MD 08/09/2020 3:40:23 PM Electronically signed by Hakan Manuel MD Number of Addenda: 0 Note Initiated On: 08/09/2020 3:14 PM Estimated Blood Loss: Estimated blood loss: none.
[2020-08-09 16:10] VITALS: BP 137/70
== END 2020-08-09 16:09 | disposition home or self-care (01) ==
LOC: M OPP 12:45
PROVIDERS: ATTEND Internal Medicine Gastroenterology
DX: I85.00 Esophageal varices without bleeding (principal); K76.6 Portal hypertension; K31.89 Other diseases of stomach and duodenum; K74.60 Unspecified cirrhosis of liver; Z79.899 Other long term (current) drug therapy
CPT/HCPCS: 43244; J3010

== ENCOUNTER 2021-02-06 14:04 | Observation (INO) | payer MEDICARE ==
[~2021-02-06] VITALS: Ht 177.8 cm; Wt 77.5 kg
[~2021-02-06 14:04] MED LIST changes: -NS 1,000 ML IV ONE; +ONDA4TAB6
--- NOTE | 2021-02-06 22:10 | REPVR ---
PROCEDURE INFORMATION: Exam: XR Chest Exam date and time: 02/06/2021 9:29 PM Age: 65 years old Clinical indication: Condition or disease; Other: Coronavirus; Additional info: Coronavirus workup TECHNIQUE: Imaging protocol: XR of the chest. Views: 1 view. COMPARISON: CR Abdomen,Flat Upright,PA CHEST 12/15/2017 9:37 AM FINDINGS: Lungs: No consolidation. Pleural spaces: No pleural effusion. No pneumothorax. Heart/Mediastinum: No cardiomegaly. Bones/joints: There are degenerative changes throughout the thoracic spine. IMPRESSION: 1. No evidence of active pulmonary disease. 2. A followup PA and lateral radiograph is recommended when the patient is clinically able. Electronically signed by: Bon Lundberg On 02/06/2021 22:09:30 PM
[2021-02-06 22:17] LABS: BASO % 0.2 % (0.0-1.0); EOS % 0.5 % (0.0-3.0); HEMATOCRIT 42.4 % (42.0-52.0); HEMOGLOBIN 14.9 g/dl (13.5-17.5); LYMPH # 1.1 10^3/uL (1.5-5.0); LYMPH % 18.3 % (24.0-44.0); MEAN CORPUSCULAR HEMOGLOBIN 34.1 pg (27.0-33.0); MEAN CORPUSCULAR HGB CONC 35.1 g/dl (32.0-36.5); MONO # 0.6 10^3/uL (0.0-0.8); MONO % 10.5 % (2.0-8.0); NEUTROPHILS # 4.1 10^3/uL (1.5-8.5); NEUTROPHILS % 70.2 % (36.0-66.0); RED BLOOD COUNT 4.37 10^6/uL (4.30-6.10); WHITE BLOOD COUNT 5.8 10^3/uL (4.0-10.0)
[2021-02-06 22:19] LABS: PLATELET COUNT, AUTOMATED 52 10^3/uL (150-450)
[2021-02-06 22:29] LABS: INR 1.33; PROTHROMBIN TIME 16.9 SECONDS (12.7-14.5)
[2021-02-06 22:30] LABS: PARTIAL THROMBOPLASTIN TIME 45.4 SECONDS (25.9-37.0)
[2021-02-06 22:32] LABS: D-DIMER QUANT 748.18 ng/ml (<500)
[2021-02-06 22:56] LABS: ALBUMIN 2.7 GM/DL (3.2-5.2); ALT/SGPT 28 U/L (12-78); BILIRUBIN,TOTAL 6.5 MG/DL (0.2-1.0); BLOOD UREA NITROGEN 10 MG/DL (7-18); C REACTIVE PROTEIN QUANTITATIV 4.05 MG/DL (0.00-0.30); CALCIUM LEVEL 8.5 MG/DL (8.8-10.2); CARBON DIOXIDE LEVEL 26 MEQ/L (21-32); CHLORIDE LEVEL 96 MEQ/L (98-107); CREATININE FOR GFR 0.85 MG/DL (0.70-1.30); FERRITIN 2764 NG/ML (26-388); GLOMERULAR FILTRATION RATE > 60.0 (>49); GLUCOSE, FASTING 173 MG/DL (70-100); MAGNESIUM LEVEL 1.7 MG/DL (1.8-2.4); SODIUM LEVEL 130 MEQ/L (136-145)
[2021-02-07] MEDS ORDERED: ISOVUE-370 76% 100ML VIAL As Ordered ONE (00:52)
[2021-02-07] MEDS ORDERED: dexameTHASONE 20MG/5ML VIAL (J1100 PER 1MG) IV ONE (01:05)
[2021-02-07] MEDS ORDERED: NS 1,000 ML IV ONE (03:05)
[2021-02-07] MEDS ORDERED: POTASSIUM CHLORIDE 10MEQ SR TABLET PO ONE ×2 (04:15→06:30)
[2021-02-07] MEDS ORDERED: MAG SULF 1GM/100ML (MAG RUN) 1 GM in IV 1 EA IV ONE ×2 (04:15→06:30)
[2021-02-07] MEDS ORDERED: ACETAMINOPHEN TAB 650MG DOSE (2X325MG) PO PRN (04:45)
[2021-02-07] MEDS ORDERED: POTA10TA17 PO (05:41)
[2021-02-07] MEDS ORDERED: GLIP5TAB20 PO (05:41)
[2021-02-07] MEDS ORDERED: THIA100T7 PO (05:41)
[2021-02-07] MEDS ORDERED: ONDA4TAB6 PO (05:41)
[2021-02-07] MEDS ORDERED: HOME MED LIST COMPLETE! XX SCH (05:45)
[2021-02-07] MEDS: LEVOTHYROXINE 50MCG TABLET (0.05MG) PO SCH (06:00)
[2021-02-07] MEDS ORDERED: BENZONATATE 100MG CAPSULE PO PRN (06:10)
--- NOTE | 2021-02-07 06:16 | HPEPDOC ---
General Date of Admission 02/07/21 Date of Service: Feb 07, 2021 Chief Complaint The patient is a 65-year-old male admitted with a reason for visit of Covid Infusion. History of Present Illness Jurgen Rousseau is a 65-year-old male with significant medical history of hypertension, hyperlipidemia, GERD, esophageal varices, cirrhosis, EtOH use pancreatitis, hypothyroidism, and cataracts who presents with complaints of generalized malaise and Covid positive status. Patient reports that he has been feeling unwell x2 weeks. He endorses poor p.o., generalized fatigue and weakness as well as dry cough. He reports that he went to his PCP and he tested positive for Covid yesterday. He reports that his provider told him to come to the ER for possible monoclonal infusion and also reported they "read his oxygen low". Patient upon arrival satting 98% on room air. He denies shortness of breath. Chest x-ray nonacute. As patient greater than 14 days from symptom onset does not meet criteria for Mab. However, lab work reveals hypomagnesium and hypokalemia. Pt denies montaño, sinus congestion, sore throat, sob, palpitations, chest pain, n/v/d, abdominal pain, sensory changes or syncope. Patient will be observed for further evaluation management of presenting concerns and electrolyte repletion. Home Medications Scheduled Folic Acid (Folic Acid) 1 Mg Tab, 1 MG PO DAILY, (Reported) Furosemide (Furosemide) 20 Mg Tablet, 20 MG PO DAILY, (Reported) Glipizide (Glipizide ER) 5 Mg Tab.er.24, 5 MG PO DAILY, (Reported) Levothyroxine Sodium (Synthroid) 50 Mcg Tab, 50 MCG PO DAILY, (Reported) Pantoprazole Sodium (Pantoprazole Sodium) 40 Mg Tab, 40 MG PO DAILY, (Reported) Potassium Chloride (Potassium Chloride) 10 Meq Tab.er.prt, 10 MEQ PO DAILY, (Reported) Propranolol HCl (Propranolol HCl) 10 Mg Tab, 10 MG PO DAILY, (Reported) Spironolactone (Spironolactone) 100 Mg Tab, 100 MG PO DAILY, (Reported) Thiamine HCl (Thiamine HCl) 100 Mg Tablet, 100 MG PO DAILY, (Reported) Scheduled PRN Febuxostat (Uloric) 40 Mg Tab, 40 MG PO DAILY PRN for GOUT, (Reported) Ondansetron (Ondansetron Odt) 4 Mg Tab.rapdis, 4 MG PO TID PRN for NAUSEA, (Reported) Allergies Coded Allergies: No Known Allergies (Unverified , 08/02/20) Past Medical History Medical History Diabetes, hypertension, hyperlipidemia, GERD, esophageal varices, cirrhosis, EtOH use pancreatitis, hypothyroidism and cataracts Surgical History Cholecystectomy, appendectomy, EGD, paracentesis x3, hernia surgery, prostate surgery, orthopedic surgeries right ankle right wrist and fifth finger Family History Significant Family History: Diabetes, Heart disease, Hypertension Motherhypertension, fatherdiabetes and CAD Social History * Smoker: Denies Alcohol: occationally (Patient reports heavy EtOH use but after having progressed cirrhosis with need for paracentesis he decreased use to wine coolers occasionally. Reports last drink 3 weeks ago prior to feeling ill) Drugs: denies Recent Travel/Sick Contacts: Denies: Recent travel, Recent sick contacts Psychosocial History: No pertinent psych hx Patient is and lives with A-F[facility] A-FIB History Current/History of A-Fib/PAF?: No Current PO Anticoag Therapy: No Review of Systems Constitutional: Reports: Malaise, Fatigue; Denies: Chills, Fever, Night Sweats Eyes: Denies: Pain, Vision change ENT: Denies: Head Aches, Ear Pain, Dysphagia Skin: Denies: Rash, Lesions, Breakdown Pulmonary: Reports: Cough; Denies: Dyspnea Cardiovascular: Denies: Chest Pain, Palpitations, Orthopnea, Paroxysmal Noc. Dyspnea, Lt Headedness Gastrointestinal: Denies: Nausea, Vomiting, Abdominal Pain, Diarrhea Genitourinary: Denies: Dysuria, Frequency, Incontinence, Retention Hematologic: Denies: Bruising, Bleeding Excessively Musculoskeletal: Denies: Neck Pain, Back Pain, Joint Pain, Muscle Pain, Spasms Neurological: Denies: Weakness, Numbness, Change in speech, Confusion Psych: Reports: Mood Normal; Denies: Depression, Memory Issues Physical Examination General Exam: Positive: Alert, Cooperative, No Acute Distress Eye Exam: Positive: PERRLA, Conjunctiva & lids normal, EOMI; Negative: Sclera icteric ENT Exam: Positive: Atraumatic, Mucous membr. moist/pink, Pharynx Normal Neck Exam: Positive: Supple; Negative: JVD, thyromegaly Chest Exam: Positive: Diminished Heart Exam: Positive: Rate Normal, Regular Rhythm, Normal S1, Normal S2; Negative: Murmurs, Rubs Telemetry: Positive: No significant arrhythmia Abdomen Exam: Positive: Normal bowel sounds, Soft; Negative: Tenderness, Hepatospenomegaly Extremity Exam: Positive: Normal pulses; Negative: Clubbing, Cyanosis, Edema Skin Exam: Positive: Nl turgor and temperature; Negative: Breakdown, Lesion Neuro Exam: Positive: Normal Gait, Normal Speech, Cranial Nerves 3-12 NL, Reflexes 2+ Psych Exam: Positive: Mental status NL, Mood NL, Oriented x 3 Vital Signs Vital Signs Date Time Temp Pulse Resp B/P (MAP) Pulse Ox O2 Delivery O2 Flow Rate FiO2 02/06/21 14:05 97.9 97 18 134/68 (90) 97 Room Air Laboratory Data Labs 24H Laboratory Tests 2 02/06/21 21:41: Immature Granulocyte % (Auto) 0.3, Neutrophils (%) (Auto) 70.2H, Lymphocytes (%) (Auto) 18.3L, Monocytes (%) (Auto) 10.5H, Eosinophils (%) (Auto) 0.5, Basophils (%) (Auto) 0.2, Neutrophils # (Auto) 4.1, Lymphocytes # (Auto) 1.1L, Monocytes # (Auto) 0.6, Eosinophils # (Auto) 0.0, Basophils # (Auto) 0.0, Nucleated Red Blood Cells % (auto) 0.0, Immature Platelet Fraction 9.8, Prothrombin Time 16.9H, Prothromb Time International Ratio 1.33, Activated Partial Thromboplast Time 45.4H, Fibrinogen 310, D-Dimer, Quantitative 748.18H, Anion Gap 8, Glomerular Filtration Rate > 60.0, Lactic Acid Level 3.0*H, Calcium Level 8.5L, Magnesium Level 1.7L, Ferritin 2764H, Total Bilirubin 6.5H, Aspartate Amino Transf (AST/SGOT) 101H, Alanine Aminotransferase (ALT/SGPT) 28, Alkaline Phosphatase 158H, C-Reactive Protein, Quantitative 4.05H, Total Protein 8.0, Albumin 2.7L, Albumin/Globulin Ratio 0.5 CBC/BMP Laboratory Tests 02/06/21 21:41 Assessment/Plan 1. Malaise secondary to Covid : Fortunately, patient tolerating room air. Chest x-ray nonacute however did mention suggestion for 2 view follow-up. Procalcitonin pending. Elevated lactic at 3. Consider possible developing secondary pneumonia however, reassuringly patient afebrile, no leukocytosis and nonproductive cough. -Monitor pt, respiratory status; patient satting well at rest -patient will benefit from ambulatory oxygen monitoring prior to discharge -Oxygen to keep SPO2 greater than 92% should he become hypoxic -Antitussives -As needed breathing treatments -Lactic acidosis possibly related to dehydration, medication (glipizide) or electrolyte deficiency: Recheck and consider differential 2. Dehydration, hypomagnesium and hypokalemia: In setting of above, poor p.o. intake and diuretic/PPI use Repletion per protocol Patient received hydration in ED BMP/mag recheck 3. Diabetes: Patient did not report that he had diabetes but reported during m ed review that he takes glipizide for "A1c". Glucose upon admission 173. Lactic 3. Patient endorses poor p.o. -Will hold glipizide in setting of poor appetite and lactic acidosis. -Check A1c. -Monitor patient blood glucose ACHS. -Sliding scale insulin for now. -A.m. labs. 4. Alcoholic cirrhosis with esophageal varices and portal hypertensive gastropathy: History of paracentesis times three. Patient reports no EtOH use in 3 weeks. Benign abdominal exam, patient does have somewhat jaundiced complexion. Thrombocytopenia platelets 52 chronic as well as transaminitis. -Continue home vitamins -Diuretics on hold today given above -Encourage continued cessation and follow-up with his GI specialist Dr. Roy. 5. Hypothyroidism. Continue home Synthroid. 6. Hypertension. Continue home propranolol. 7. Gastroesophageal reflux disease. Continue home Protonix tomorrow. DVT prophylaxis: Early ambulation CODE STATUS full code Disposition planning: Anticipate less than 2 midnight stay; Possible patient to go home later today pending clinical improvement/follow-up lab work stable. Plan / VTE VTE Prophylaxis Ordered?: Yes DORITA HERRERA NP Feb 07, 2021 04:59
[2021-02-07] MEDS ORDERED: GLUCOSE 4GM CHEW TABLET PO PRN (06:20)
[2021-02-07] MEDS ORDERED: GLUCAGON INJ 1MG VIAL SC PRN (06:20)
[2021-02-07] MEDS ORDERED: DEXTROSE 50% 50 ML SYRINGE IV PRN (06:20)
[2021-02-07 06:23] LABS: RSV AMPLIFICATION NEGATIVE (NEGATIVE)
[2021-02-07] MEDS: THIAMINE 100 MG TAB PO SCH (09:25)
--- NOTE | 2021-02-07 09:25 | REP ---
INDICATION: F/U 1 VIEW COMPARISON: 02/06/2021 as well as other prior exams. TECHNIQUE: PA/Lateral FINDINGS: Lungs: There is mild patchy infiltrate in the right lower lobe. Heart: Normal in size. Mediastinum: Mediastinal silhouette unremarkable. Pleural angles: Unremarkable.. Bones and soft tissues: Unremarkable. IMPRESSION: Mild patchy infiltrate right lower lobe. <Electronically signed by Thomas Wiseman > 02/07/21 0922
[2021-02-07] MEDS: PROPRANOLOL 10 MG TAB PO SCH (09:26)
[2021-02-07] MEDS: FOLIC ACID 1 MG TAB PO SCH (09:26)
[2021-02-07] MEDS: HumaLOG INSULIN (NovoLOG) PER UNIT SC SCH ×3 (09:26→17:27)
[2021-02-07 12:35] LABS: BASO % 0.6 % (0.0-1.0); HEMATOCRIT 34.3 % (42.0-52.0); HEMOGLOBIN 11.8 g/dl (13.5-17.5); LYMPH # 0.2 10^3/uL (1.5-5.0); LYMPH % 14.5 % (24.0-44.0); MEAN CORPUSCULAR HEMOGLOBIN 33.5 pg (27.0-33.0); MEAN CORPUSCULAR HGB CONC 34.4 g/dl (32.0-36.5); MEAN CORPUSCULAR VOLUME 97.4 fl (80.0-96.0); MONO # 0.1 10^3/uL (0.0-0.8); MONO % 5.4 % (2.0-8.0); NEUTROPHILS # 1.3 10^3/uL (1.5-8.5); NEUTROPHILS % 79.5 % (36.0-66.0); RED BLOOD COUNT 3.52 10^6/uL (4.30-6.10); WHITE BLOOD COUNT 1.7 10^3/uL (4.0-10.0)
--- NOTE | 2021-02-07 12:48 | REP ---
INDICATION: rule out PE. COMPARISON: CXR 02/07/2021, AP CXR 02/06/2021.. TECHNIQUE: CT angiogram chest performed following the intravenous administration of 75 cc of Isovue 370. Sagittal and coronal reconstruction images are performed. FINDINGS: Lungs: Bilateral posterior/peripheral atelectasis from upper to lower lung zones without pleural effusion. No parenchymal lung mass evident. There is a 5 mm nodule mid axillary line in the left upper lobe image 57. Subpleural atelectatic change also noted in the right mid and upper lung zone. Ground-glass opacity in the right upper lobe on image 41 about 6 mm. No other nodules. Mediastinum: No pathologic sized mediastinal adenopathy.. Pulmonary arteries: The main, right and left pulmonary arteries in the mediastinum are without filling defect. Lobar, segmental and subsegmental arteries also are without filling defects in either lung. No vessel cut off. Veronika: No adenopathy. Axilla: No adenopathy. Pleura: No effusion. Subpleural atelectatic change bilaterally lower lung zones and peripherally right upper lobe. Heart: Not enlarged. No hiatal hernia. Thoracic aorta: No aneurysm or dissection. Upper abdominal structures: Liver is homogeneous but has a prominent left hepatic lobe is slightly lobulated contour indicating chronic liver disease. Clips from prior cholecystectomy are noted. There may be some splenomegaly but the spleen is not seen in its entirety. No ascites in the upper abdomen. Adrenal glands are normal. Upper poles of kidneys intact. Pancreas grossly intact. There is some Sury pancreatic and celiac axis nodes up to 10.6 mm in short axis. Visualized osseous structures: Degenerative changes in the spine. The sternum, manubrium, medial clavicles, shoulders, scapulae and ribs grossly intact IMPRESSION: No CT evidence of pulmonary embolism. Bilateral subpleural atelectatic change and some right anterolateral subpleural atelectasis in the upper lobe. No effusion. Couple of small nodules as described. No cardiomegaly, mediastinal or hilar adenopathy, aortic aneurysm or acute bony finding. Chronic liver disease with an enlarged left hepatic lobe and lobulated hepatic contour. There may be some mild splenomegaly but the spleen is not seen in its entirety. Some a peripancreatic and celiac axis nodes up to a 10.6 mm in short axis noted. No other finding. <Electronically signed by Anupam Traore > 02/07/21 [id number]
[2021-02-07 12:58] LABS: BLOOD UREA NITROGEN 11 MG/DL (7-18); CARBON DIOXIDE LEVEL 21 MEQ/L (21-32); CHLORIDE LEVEL 100 MEQ/L (98-107); GLOMERULAR FILTRATION RATE > 60.0 (>49); GLUCOSE, FASTING 348 MG/DL (70-100); MAGNESIUM LEVEL 2.5 MG/DL (1.8-2.4); NT-PRO BNP 88 PG/ML (<125); SODIUM LEVEL 131 MEQ/L (136-145)
[2021-02-07 13:22] LABS: PLATELET COUNT, AUTOMATED 34 10^3/uL (150-450)
[2021-02-07 13:29] LABS: HEMOGLOBIN A1c 6.4 %
[2021-02-07 13:37] LABS: ALBUMIN 2.1 GM/DL (3.2-5.2); ALT/SGPT 22 U/L (12-78); BILIRUBIN,DIRECT 3.3 MG/DL (0.0-0.2); BILIRUBIN,TOTAL 5.2 MG/DL (0.2-1.0); TOTAL PROTEIN 6.2 GM/DL (6.4-8.2)
[2021-02-07] MEDS: NS 1,000 ML IV SCH (14:40)
[2021-02-07 15:31] VITALS: BP 104/58
--- NOTE | 2021-02-07 18:38 | IPNPDOC ---
Subjective Date Seen The patient was seen on 02/07/21. Subjective Chief Complaint/HPI Mr. Rousseau is a 65-year-old man with alcoholic cirrhosis who is here for generalized malaise and COVID positive status. This morning, patient was feeling better. Denied chest pain or dyspnea. He still had an elevated lactic acid of 3 despite IVF. Will continue with more IVF. Objective Physical Examination General Exam: Positive: Alert, Cooperative Eye Exam: Positive: EOMI, Sclera icteric ENT Exam: Positive: Atraumatic Neck Exam: Positive: Supple, JVD Chest Exam: Positive: Clear to auscultation Heart Exam: Positive: Rate Normal, Regular Rhythm Abdomen Exam: Positive: Normal bowel sounds, Soft; Negative: Tenderness Skin Exam: Positive: Other skin issue (Jaundiced) Neuro Exam: Positive: Normal Speech Psych Exam: Positive: Mental status NL, Mood NL Assessment /Plan Assessment Mr. Rousseau is a 65-year-old man with alcoholic cirrhosis who is here for gener alized malaise and COVID positive status. Unfortunately, he does not meet criteria for MAB, but he does appear dry. Will give IVF and hold diuretics. Plan/VTE VTE Prophylaxis Ordered?: Yes Plan 1. Covid positive status Patient does not meet criteria for monoclonal antibodies Supportive care 2. Dehydration IVF Monitor lactic acid 3. Diabetes mellitus Sliding scale insulin 4. Alcoholic cirrhosis with esophageal varices and portal hypertension Patient does appear jaundiced Monitor bilirubin CT does not demonstrate acute pathology Thiamine and folic acid 5. Hypothyroidism Continue Synthroid 6. Hypertension Continue propranolol 7. GERD Continue Protonix 8. DVT prophylaxis SCDs and teds Disposition: Pending improvement in lactic acid VS, I&O, 24H, [facility] Vital Signs/I&O Vital Signs Date Time Temp Pulse Resp B/P (MAP) Pulse Ox O2 Delivery O2 Flow Rate FiO2 02/07/21 15:31 96.4 60 13 104/58 (73) 96 Room Air Laboratory Data 24H LABS Laboratory Tests 2 02/06/21 21:41: Immature Granulocyte % (Auto) 0.3, Neutrophils (%) (Auto) 70.2H, Lymphocytes (%) (Auto) 18.3L, Monocytes (%) (Auto) 10.5H, Eosinophils (%) (Auto) 0.5, Basophils (%) (Auto) 0.2, Neutrophils # (Auto) 4.1, Lymphocytes # (Auto) 1.1L, Monocytes # (Auto) 0.6, Eosinophils # (Auto) 0.0, Basophils # (Auto) 0.0, Nucleated Red Blood Cells % (auto) 0.0, Immature Platelet Fraction 9.8, Prothrombin Time 16.9H, Prothromb Time International Ratio 1.33, Activated Partial Thromboplast Time 45.4H, Fibrinogen 310, D-Dimer, Quantitative 748.18H, Anion Gap 8, Glomerular Filtration Rate > 60.0, Lactic Acid Level 3.0*H, Calcium Level 8.5L, Magnesium Level 1.7L, Ferritin 2764H, Total Bilirubin 6.5H, Aspartate Amino Transf (AST/SGOT) 101H, Alanine Aminotransferase (ALT/SGPT) 28, Alkaline Phosphatase 158H, C-Reactive Protein, Quantitative 4.05H, Total Protein 8.0, Albumin 2.7L, Albumin/Globulin Ratio 0.5, Procalcitonin 0.18 02/07/21 05:35: Coronavirus (COVID-19)(PCR) POSITIVEA, Influenza Type A (RT-PCR) NEGATIVE, Infl uenza Type B (RT-PCR) NEGATIVE, Respiratory Syncytial Virus (PCR) NEGATIVE 02/07/21 09:09: Bedside Glucose (Misc Panel) 216H 02/07/21 12:13: Immature Granulocyte % (Auto) 0.0, Neutrophils (%) (Auto) 79.5H, Lymphocytes (%) (Auto) 14.5L, Monocytes (%) (Auto) 5.4, Eosinophils (%) (Auto) 0.0, Basophils (%) (Auto) 0.6, Neutrophils # (Auto) 1.3L, Lymphocytes # (Auto) 0.2L, Monocytes # (Auto) 0.1, Eosinophils # (Auto) 0.0, Basophils # (Auto) 0.0, Nucleated Red B lood Cells % (auto) 0.0, Anion Gap 10, Glomerular Filtration Rate > 60.0, Calcium Level 8.0L, Magnesium Level 2.5H, Total Bilirubin 5.2H, Aspartate Amino Transf (AST/SGOT) 75H, Alanine Aminotransferase (ALT/SGPT) 22, Alkaline Phosphatase 119H, Total Protein 6.2#L, Albumin 2.1#L, Albumin/Globulin Ratio 0.5, Estimated Mean Plasma Glucose 137H, Hemoglobin A1c 6.4, Direct Bilirubin 3.3H, [id number] Natriuretic Peptide 88 02/07/21 13:16: Lactic Acid Level 3.0*H 02/07/21 15:00: Bedside Glucose (Misc Panel) 263H 02/07/21 16:32: Bedside Glucose (Misc Panel) 267H 02/07/21 17:56: CBC/BMP Laboratory Tests 02/06/21 21:41 02/07/21 12:13 KARLA RAZA DO Feb 07, 2021 18:38
[2021-02-07] MEDS ORDERED: NS 500 ML IV ONE (19:25)
[2021-02-07] MEDS ORDERED: cefTRIAXone SOD 1GM VIAL (J0696 PER 250MG) IM SCH (20:00)
--- NOTE | 2021-02-07 20:47 | ECGEPIP ---
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
[2021-02-07] MEDS ORDERED: AZITHROMYCIN INJ 500 MG, VIAL MATE ADAPTER 1 EACH in NS 250 ML IV SCH (21:00)
[2021-02-07] MEDS ORDERED: HumaLOG INSULIN (NovoLOG) PER UNIT SC SCH (21:00)
[2021-02-07 22:00] VITALS: BP 94/51
[2021-02-08 05:36] VITALS: BP 97/56
[2021-02-08] MEDS: LEVOTHYROXINE 50MCG TABLET (0.05MG) PO SCH (05:46)
[2021-02-08] MEDS: NS 1,000 ML IV SCH (05:46)
[2021-02-08 06:49] LABS: HEMATOCRIT 31.2 % (42.0-52.0); HEMOGLOBIN 10.8 g/dl (13.5-17.5); MEAN CORPUSCULAR HEMOGLOBIN 34.2 pg (27.0-33.0); MEAN CORPUSCULAR HGB CONC 34.6 g/dl (32.0-36.5); MEAN CORPUSCULAR VOLUME 98.7 fl (80.0-96.0); RED BLOOD COUNT 3.16 10^6/uL (4.30-6.10); WHITE BLOOD COUNT 4.3 10^3/uL (4.0-10.0)
[2021-02-08 07:11] LABS: PLATELET COUNT, AUTOMATED 22 10^3/uL (150-450)
[2021-02-08 07:25] LABS: ALBUMIN 1.9 GM/DL (3.2-5.2); ALT/SGPT 19 U/L (12-78); BILIRUBIN,TOTAL 3.9 MG/DL (0.2-1.0); BLOOD UREA NITROGEN 12 MG/DL (7-18); CALCIUM LEVEL 7.9 MG/DL (8.8-10.2); CARBON DIOXIDE LEVEL 21 MEQ/L (21-32); CHLORIDE LEVEL 107 MEQ/L (98-107); CREATININE FOR GFR 0.59 MG/DL (0.70-1.30); GLOMERULAR FILTRATION RATE > 60.0 (>49); GLUCOSE, FASTING 215 MG/DL (70-100); MAGNESIUM LEVEL 2.1 MG/DL (1.8-2.4); POTASSIUM SERUM 4.3 MEQ/L (3.5-5.1); SODIUM LEVEL 134 MEQ/L (136-145); TOTAL PROTEIN 5.8 GM/DL (6.4-8.2)
[2021-02-08] MEDS: FOLIC ACID 1 MG TAB PO SCH (08:13)
[2021-02-08] MEDS: HumaLOG INSULIN (NovoLOG) PER UNIT SC SCH ×2 (08:13→12:00)
[2021-02-08] MEDS: THIAMINE 100 MG TAB PO SCH (08:13)
[2021-02-08 08:16] VITALS: BP 101/52
[2021-02-08] MEDS: PROPRANOLOL 10 MG TAB PO SCH (08:16)
[2021-02-08] MEDS ORDERED: dexameTHASONE 4 MG/ML 1ML VIAL (J1100 PER 1MG) IV SCH (09:00)
[2021-02-08] MEDS ORDERED: LACTOBACILLUS ACIDOPHILUS CAP (BACID) PO SCH (09:00)
[2021-02-08] MEDS ORDERED: PANTOPRAZOLE 40MG TAB (PROTONIX) PO SCH (09:00)
[2021-02-08] MEDS ORDERED: CEFD1CAP8 PO (09:38)
[2021-02-08] MEDS ORDERED: DOXY-350 PO (09:38)
--- NOTE | 2021-02-08 22:06 | DS.PDOC ---
Discharge Summary General Date of Admission Feb 07, 2021 at 04:45 Date of Discharge Feb 08, 2021 Discharge Summary PROCEDURES PERFORMED DURING STAY: None ADMITTING DIAGNOSES: 1. COVID 19 infection 2. Dehydration 3. Hypomagnesium and hypokalemia 4. Diabetes mellitus 5. Alcoholic cirrhosis with esophageal varices and portal hypertension 6. Hypothyroidism 7. Hypertension 8. GERD DISCHARGE DIAGNOSES: 1. COVID 19 infection 2. Dehydration 3. Hypomagnesium and hypokalemia 4. Diabetes mellitus 5. Alcoholic cirrhosis with esophageal varices and portal hypertension 6. Hypothyroidism 7. Hypertension 8. GERD COMPLICATIONS/CHIEF COMPLAINT: Dehydration. HISTORY OF PRESENT ILLNESS: Copied with admitting provider's H&P " Jurgen Rousseau is a 65-year-old male with significant medical history of hypertension, hyperlipidemia, GERD, esophageal varices, cirrhosis, EtOH use pancreatitis, hypothyroidism, and cataracts who presents with complaints of generalized malaise and Covid positive status. Patient reports that he has been feeling unwell x2 weeks. He endorses poor p.o., generalized fatigue and weakness as well as dry cough. He reports that he went to his PCP and he tested positive for Covid yesterday. He reports that his provider told him to come to the ER for possible monoclonal infusion and also reported they "read his oxygen low". Patient upon arrival satting 98% on room air. He denies shortness of breath. Chest x-ray nonacute. As patient greater than 14 days from symptom onset does not meet criteria for Mab. However, lab work reveals hypomagnesium and hypokalemia. Pt denies montaño, sinus congestion, sore throat, sob, palpitations, chest pain, n/v/d, abdominal pain, sensory changes or syncope. Patient will be observed for further evaluation management of presenting concerns and electrolyte repletion. " HOSPITAL COURSE: Patient was given potassium and magnesium supplementation and electrolytes returned to goal. Patient felt better with hydration. As we continue IVF, his hyperbilirubinemia improved and lactic acid improved. This morning, he felt well and felt ready for home. He was discharged home today. DISCHARGE MEDICATIONS: Please see below. ALLERGIES: Please see below. PHYSICAL EXAMINATION ON DISCHARGE: VITAL SIGNS: Please see below. GENERAL: Comfortable, in no apparent distress HEENT: Head normocephalic, atraumatic NECK: Supple CARDIOVASCULAR EXAMINATION: Regular rate and rhythm RESPIRATORY EXAMINATION: Lungs clear to auscultation bilaterally ABDOMINAL EXAMINATION: Soft, non-tender, normal bowel sounds NEUROLOGICAL EXAMINATION: CN 3-12 grossly intact PSYCHIATRIC EXAMINATION: Normal mood and affect LABORATORY DATA: Please see below. IMAGING: Radiologist interpretation CT angio chest No CT evidence of pulmonary embolism. Bilateral subpleural atelectatic change and some right anterolateral subpleural atelectasis in the upper lobe. No effusion. Couple of small nodules as described. No cardiomegaly, mediastinal or hilar adenopathy, aortic aneurysm or acute bony finding. Chronic liver disease with an enlarged left hepatic lobe and lobulated hepatic contour. There may be some mild splenomegaly but the spleen is not seen in its entirety. Some a peripancreatic and celiac axis nodes up to a 10.6 mm in short axis noted. No other finding. PROGNOSIS: Good ACTIVITY: As tolerated. DIET: Carbohydrate consistent diet, 2gm sodium diet DISCHARGE PLAN: Home with home health services DISPOSITION: Home Health Service. DISCHARGE INSTRUCTIONS: 1. Follow up with PCP within 1 week ITEMS TO FOLLOWUP ON ON OUTPATIENT: 1. Bilirubin 2. Electrolytes DISCHARGE CONDITION: Stable. Total time spent on discharge planning, discharge summary, and medication reconciliation: 30 minutes Vital Signs/I&Os Vital Signs Date Time Temp Pulse Resp B/P (MAP) Pulse Ox O2 Delivery O2 Flow Rate FiO2 02/08/21 08:16 60 101/52 02/08/21 05:36 96.2 18 94 Room Air I&O- Last 24 Hours up to 6 AM 02/08/21 06:00 Intake Total 900 ml Balance 900 ml Laboratory Data Labs 24H Laboratory Tests 2 02/08/21 02:44: Lactic Acid Followup at 4 Hours 2.6*H 02/08/21 05:11: Bedside Glucose (Misc Panel) 213H 02/08/21 06:12: Nucleated Red Blood Cells % (auto) 0.0, Immature Platelet Fraction 14.3H, Anion Gap 6L, Glomerular Filtration Rate > 60.0, Calcium Level 7.9L, Magnesium Level 2.1, Total Bilirubin 3.9H, Aspartate Amino Transf (AST/SGOT) 59H, Alanine Aminotransferase (ALT/SGPT) 19, Alkaline Phosphatase 133H, Total Protein 5.8L, Albumin 1.9L, Albumin/Globulin Ratio 0.5, Procalcitonin 0.13 02/08/21 07:57: Lactic Acid Level 1.9 02/08/21 11:34: Bedside Glucose (Misc Panel) 268H CBC/BMP Laboratory Tests 02/08/21 06:12 FSBS Laboratory Tests Test 02/08/21 05:11 02/08/21 11:34 Range/Units Bedside Glucose (Misc Panel) 213 268 80-115 MG/DL Microbiology Microbiology 02/07/21 Blood Culture - Preliminary, Resulted No growth after 24 hours . All specim... 02/07/21 Blood Culture - Preliminary, Resulted No growth after 24 hours . All specim... Discharge Medications Scheduled Cefdinir (Cefdinir) 300 Mg Capsule, 300 MG PO BID Doxycycline Monohydrate (Doxycycline) 100 Mg Capsule, 100 MG PO BID Folic Acid (Folic Acid) 1 Mg Tab, 1 MG PO DAILY, (Reported) Furosemide (Furosemide) 20 Mg Tablet, 20 MG PO DAILY, (Reported) Glipizide (Glipizide ER) 5 Mg Tab.er.24, 5 MG PO DAILY, (Reported) Levothyroxine Sodium (Synthroid) 50 Mcg Tab, 50 MCG PO DAILY, (Reported) Pantoprazole Sodium (Pantoprazole Sodium) 40 Mg Tab, 40 MG PO DAILY, (Reported) Potassium Chloride (Potassium Chloride) 10 Meq Tab.er.prt, 10 MEQ PO DAILY, (Reported) Propranolol HCl (Propranolol HCl) 10 Mg Tab, 10 MG PO DAILY, (Reported) Spironolactone (Spironolactone) 100 Mg Tab, 100 MG PO DAILY, (Reported) Thiamine HCl (Thiamine HCl) 100 Mg Tablet, 100 MG PO DAILY, (Reported) Scheduled PRN Febuxostat (Uloric) 40 Mg Tab, 40 MG PO DAILY PRN for GOUT, (Reported) Ondansetron (Ondansetron Odt) 4 Mg Tab.rapdis, 4 MG PO TID PRN for NAUSEA, (Reported) Allergies Coded Allergies: No Known Allergies (Unverified , 08/02/20) KARLA RAZA DO Feb 08, 2021 22:05
== END 2021-02-08 12:19 | disposition home health service (06) ==
LOC: M ED 14:04 → M ED INP 14:05 → UNDOADMOB 02-07 04:45 → M ED INP 02-07 04:45 → ENRESERV 02-07 11:49 → M ED INP 02-07 15:30 → M 4MAIN 02-07 15:30 → UNDODISOB 02-08 12:19
PROVIDERS: ADMIT Family Medicine; ATTEND Internal Medicine
DX: U07.1 COVID-19 (principal); E86.0 Dehydration; E83.42 Hypomagnesemia; E87.6 Hypokalemia; E11.9 Type 2 diabetes mellitus without complications; K70.30 Alcoholic cirrhosis of liver without ascites; I85.10 Secondary esophageal varices without bleeding; K76.6 Portal hypertension; E03.9 Hypothyroidism, unspecified; I10 Essential (primary) hypertension; K21.9 Gastro-esophageal reflux disease without esophagitis; E78.5 Hyperlipidemia, unspecified; H26.9 Unspecified cataract; Z87.19 Personal history of other diseases of the digestive system; Z79.899 Other long term (current) drug therapy; Z79.2 Long term (current) use of antibiotics
CPT/HCPCS: 36415; 71045; 71046; 71275; 80048; 80053; 80076; 82728; 83036; 83605; 83735; 83880; 84145; 85025; 85027; 85049; 85055; 85379; 85384; 85610; 85730; 86140; 87040; 87631; 93005; 96365; 96366; 96375; 99284; G0378; J1100; J3475; Q9967

== ENCOUNTER → 2021-05-25 | Outpatient (CLI) | payer MEDICARE ==
[~2021-05-25] MED LIST changes: +CEFD300C41 PO; +DOXY-350 PO; +GLIP5TAB20 PO; +ONDA4TAB6 PO; +POTA10TA17 PO; +THIA100T7 PO
[2021-05-25 13:56] LABS: BASO # 0.1 10^3/uL (0.0-0.2); BASO % 1.5 % (0.0-1.0); EOS # 0.3 10^3/uL (0.0-0.5); HEMATOCRIT 37.4 % (42.0-52.0); HEMOGLOBIN 12.9 g/dl (13.5-17.5); LYMPH # 1.1 10^3/uL (1.5-5.0); LYMPH % 20.4 % (24.0-44.0); MEAN CORPUSCULAR HEMOGLOBIN 33.9 pg (27.0-33.0); MEAN CORPUSCULAR HGB CONC 34.5 g/dl (32.0-36.5); MEAN CORPUSCULAR VOLUME 98.2 fl (80.0-96.0); MONO # 0.7 10^3/uL (0.0-0.8); MONO % 12.8 % (2.0-8.0); NEUTROPHILS # 3.2 10^3/uL (1.5-8.5); NEUTROPHILS % 59.9 % (36.0-66.0); RED BLOOD COUNT 3.81 10^6/uL (4.30-6.10); WHITE BLOOD COUNT 5.4 10^3/uL (4.0-10.0)
[2021-05-25 13:57] LABS: PLATELET COUNT, AUTOMATED 72 10^3/uL (150-450)
[2021-05-25 14:11] LABS: HEMOGLOBIN A1c 5.9 %
[2021-05-25 14:27] LABS: ALBUMIN 2.9 GM/DL (3.2-5.2); ALT/SGPT 16 U/L (12-78); BLOOD UREA NITROGEN 10 MG/DL (7-18); CALCIUM LEVEL 8.6 MG/DL (8.8-10.2); CARBON DIOXIDE LEVEL 24 MEQ/L (21-32); CHLORIDE LEVEL 102 MEQ/L (98-107); CHOLESTEROL LEVEL 223 MG/DL (<200); CHOLESTEROL RISK RATIO 5.439 (<5); CREATININE FOR GFR 0.74 MG/DL (0.70-1.30); GLOMERULAR FILTRATION RATE > 60.0 (>49); GLUCOSE, FASTING 85 MG/DL (70-100); HDL CHOLESTEROL 41 MG/DL (>40); LDL CHOLESTEROL 148 MG/DL (<100); MAGNESIUM LEVEL 1.7 MG/DL (1.8-2.4); NON-HDL-C 182 MG/DL; POTASSIUM SERUM 3.5 MEQ/L (3.5-5.1); SODIUM LEVEL 137 MEQ/L (136-145); TOTAL PROTEIN 7.3 GM/DL (6.4-8.2); TRIGLYCERIDES LEVEL 172 MG/DL (<150); URIC ACID 3.1 MG/DL (3.5-7.2)
== END ==
LOC: M LAB 13:16
PROVIDERS: ATTEND Physician Assistant Medical
DX: I85.00 Esophageal varices without bleeding (principal); D50.9 Iron deficiency anemia, unspecified; Z79.899 Other long term (current) drug therapy

== ENCOUNTER → 2021-05-25 | Outpatient (CLI) | payer MEDICARE ==
[2021-05-25 13:56] LABS: BASO # 0.1 10^3/uL (0.0-0.2); BASO % 1.8 % (0.0-1.0); EOS # 0.3 10^3/uL (0.0-0.5); HEMATOCRIT 37.6 % (42.0-52.0); HEMOGLOBIN 12.8 g/dl (13.5-17.5); LYMPH # 1.2 10^3/uL (1.5-5.0); LYMPH % 20.9 % (24.0-44.0); MEAN CORPUSCULAR VOLUME 99.7 fl (80.0-96.0); MONO # 0.7 10^3/uL (0.0-0.8); MONO % 12.1 % (2.0-8.0); NEUTROPHILS # 3.3 10^3/uL (1.5-8.5); RED BLOOD COUNT 3.77 10^6/uL (4.30-6.10); WHITE BLOOD COUNT 5.6 10^3/uL (4.0-10.0)
[2021-05-25 13:58] LABS: PLATELET COUNT, AUTOMATED 69 10^3/uL (150-450)
[2021-05-25 14:18] LABS: BLOOD UREA NITROGEN 9 MG/DL (7-18); CALCIUM LEVEL 8.6 MG/DL (8.8-10.2); CARBON DIOXIDE LEVEL 25 MEQ/L (21-32); CHLORIDE LEVEL 101 MEQ/L (98-107); CREATININE FOR GFR 0.72 MG/DL (0.70-1.30); FERRITIN 387 NG/ML (26-388); GLOMERULAR FILTRATION RATE > 60.0 (>49); GLUCOSE, FASTING 87 MG/DL (70-100); IRON (FE) 244 UG/DL (65-175); PERCENT SATURATION 93.8 % (19.7-50.0); POTASSIUM SERUM 3.5 MEQ/L (3.5-5.1); SODIUM LEVEL 136 MEQ/L (136-145); TOTAL IRON BINDING CAPACITY 260 UG/DL (250-450)
== END ==
LOC: M LAB 13:19
PROVIDERS: ATTEND Internal Medicine Gastroenterology
DX: I85.00 Esophageal varices without bleeding (principal); D50.9 Iron deficiency anemia, unspecified

== ENCOUNTER → 2021-08-24 | Outpatient (CLI) | payer MEDICARE ==
[2021-08-24 14:55] LABS: BASO # 0.1 10^3/uL (0.0-0.2); EOS # 0.3 10^3/uL (0.0-0.5); HEMATOCRIT 35.7 % (42.0-52.0); HEMOGLOBIN 12.5 g/dl (13.5-17.5); LYMPH # 1.1 10^3/uL (1.5-5.0); LYMPH % 21.1 % (24.0-44.0); MEAN CORPUSCULAR HEMOGLOBIN 34.3 pg (27.0-33.0); MEAN CORPUSCULAR VOLUME 98.1 fl (80.0-96.0); MONO # 0.6 10^3/uL (0.0-0.8); MONO % 12.4 % (2.0-8.0); NEUTROPHILS % 59.3 % (36.0-66.0); RED BLOOD COUNT 3.64 10^6/uL (4.30-6.10)
[2021-08-24 14:56] LABS: PLATELET COUNT, AUTOMATED 69 10^3/uL (150-450)
[2021-08-24 15:17] LABS: HEMOGLOBIN A1c 5.8 %
[2021-08-24 15:29] LABS: ALBUMIN 2.8 GM/DL (3.2-5.2); ALT/SGPT 23 U/L (12-78); BILIRUBIN,TOTAL 4.9 MG/DL (0.2-1.0); BLOOD UREA NITROGEN 9 MG/DL (7-18); CALCIUM LEVEL 9.1 MG/DL (8.8-10.2); CARBON DIOXIDE LEVEL 24 MEQ/L (21-32); CHLORIDE LEVEL 106 MEQ/L (98-107); CREATININE FOR GFR 0.75 MG/DL (0.70-1.30); GLOMERULAR FILTRATION RATE > 60.0 (>49); GLUCOSE, FASTING 142 MG/DL (70-100); POTASSIUM SERUM 3.6 MEQ/L (3.5-5.1); SODIUM LEVEL 140 MEQ/L (136-145); TOTAL PROTEIN 7.5 GM/DL (6.4-8.2); URIC ACID 3.2 MG/DL (3.5-7.2)
== END ==
LOC: M LAB 13:42
PROVIDERS: ATTEND Internal Medicine
DX: K70.9 Alcoholic liver disease, unspecified (principal); E07.9 Disorder of thyroid, unspecified

== ENCOUNTER → 2021-09-19 | Outpatient (CLI) | payer MEDICARE | LOC: M RAD 09:41 | PROVIDERS: ATTEND Internal Medicine Gastroenterology | DX: I85.00 Esophageal varices without bleeding (principal) ==

== ENCOUNTER → 2021-10-28 | Outpatient (CLI) | payer MEDICARE ==
[2021-10-28 14:19] LABS: INR 1.47; PROTHROMBIN TIME 18.3 SECONDS (12.7-14.5)
[2021-10-28 14:21] LABS: PARTIAL THROMBOPLASTIN TIME 43.1 SECONDS (25.9-37.0)
[2021-10-28 14:32] LABS: ALBUMIN 2.7 GM/DL (3.2-5.2); ALT/SGPT 29 U/L (12-78); BILIRUBIN,DIRECT 3.1 MG/DL (0.0-0.2); BILIRUBIN,TOTAL 7.5 MG/DL (0.2-1.0); BLOOD UREA NITROGEN 6 MG/DL (7-18); CALCIUM LEVEL 8.3 MG/DL (8.8-10.2); CARBON DIOXIDE LEVEL 27 MEQ/L (21-32); CHLORIDE LEVEL 98 MEQ/L (98-107); CREATININE FOR GFR 0.64 MG/DL (0.70-1.30); GLOMERULAR FILTRATION RATE > 60.0 (>49); GLUCOSE, FASTING 221 MG/DL (70-100); POTASSIUM SERUM 3.3 MEQ/L (3.5-5.1); SODIUM LEVEL 133 MEQ/L (136-145); TOTAL PROTEIN 6.8 GM/DL (6.4-8.2)
== END ==
LOC: M LAB 12:59
PROVIDERS: ATTEND Internal Medicine Gastroenterology
DX: I85.00 Esophageal varices without bleeding (principal); K70.31 Alcoholic cirrhosis of liver with ascites

== ENCOUNTER → 2021-12-16 | Outpatient (CLI) | payer MEDICARE ==
[~2021-12-16] MED LIST changes: +POTA-150 PO; -POTA10TA17 PO
[2021-12-16 13:55] LABS: BASO # 0.1 10^3/uL (0.0-0.2); BASO % 1.1 % (0.0-1.0); EOS # 0.2 10^3/uL (0.0-0.5); EOS % 3.6 % (0.0-3.0); HEMATOCRIT 35.1 % (42.0-52.0); HEMOGLOBIN 12.3 g/dl (13.5-17.5); LYMPH # 0.8 10^3/uL (1.5-5.0); LYMPH % 17.2 % (24.0-44.0); MEAN CORPUSCULAR HEMOGLOBIN 35.4 pg (27.0-33.0); MEAN CORPUSCULAR VOLUME 101.2 fl (80.0-96.0); MONO # 0.5 10^3/uL (0.0-0.8); MONO % 10.9 % (2.0-8.0); NEUTROPHILS # 3.2 10^3/uL (1.5-8.5); NEUTROPHILS % 66.8 % (36.0-66.0); PLATELET COUNT, AUTOMATED 53 10^3/uL (150-450); RED BLOOD COUNT 3.47 10^6/uL (4.30-6.10); WHITE BLOOD COUNT 4.8 10^3/uL (4.0-10.0)
[2021-12-16 14:48] LABS: HEMOGLOBIN A1c 7.6 %
[2021-12-16 14:52] LABS: ALBUMIN 2.7 GM/DL (3.2-5.2); ALT/SGPT 20 U/L (12-78); BILIRUBIN,TOTAL 6.5 MG/DL (0.2-1.0); BLOOD UREA NITROGEN 7 MG/DL (7-18); CALCIUM LEVEL 8.4 MG/DL (8.8-10.2); CARBON DIOXIDE LEVEL 24 MEQ/L (21-32); CHLORIDE LEVEL 99 MEQ/L (98-107); CHOLESTEROL LEVEL 210 MG/DL (<200); CHOLESTEROL RISK RATIO 6.562 (<5); CREATININE FOR GFR 0.68 MG/DL (0.70-1.30); GLOMERULAR FILTRATION RATE > 60.0 (>49); GLUCOSE, FASTING 239 MG/DL (70-100); HDL CHOLESTEROL 32 MG/DL (>40); LDL CHOLESTEROL 125 MG/DL (<100); NON-HDL-C 178 MG/DL; POTASSIUM SERUM 3.4 MEQ/L (3.5-5.1); SODIUM LEVEL 132 MEQ/L (136-145); TOTAL PROTEIN 7.2 GM/DL (6.4-8.2); TRIGLYCERIDES LEVEL 267 MG/DL (<150)
== END ==
LOC: M LAB 12:57
PROVIDERS: ATTEND Internal Medicine
DX: D64.9 Anemia, unspecified (principal); E78.00 Pure hypercholesterolemia, unspecified

== ENCOUNTER → 2022-01-22 | Outpatient (CLI) | payer MEDICARE ==
[2022-01-22 14:38] LABS: BASO # 0.1 10^3/uL (0.0-0.2); BASO % 1.4 % (0.0-1.0); EOS # 0.2 10^3/uL (0.0-0.5); EOS % 3.6 % (0.0-3.0); HEMATOCRIT 35.1 % (42.0-52.0); HEMOGLOBIN 12.1 g/dl (13.5-17.5); LYMPH # 0.9 10^3/uL (1.5-5.0); LYMPH % 19.7 % (24.0-44.0); MEAN CORPUSCULAR HEMOGLOBIN 34.8 pg (27.0-33.0); MEAN CORPUSCULAR HGB CONC 34.5 g/dl (32.0-36.5); MEAN CORPUSCULAR VOLUME 100.9 fl (80.0-96.0); MONO # 0.5 10^3/uL (0.0-0.8); MONO % 11.5 % (2.0-8.0); NEUTROPHILS # 2.8 10^3/uL (1.5-8.5); NEUTROPHILS % 63.6 % (36.0-66.0); RED BLOOD COUNT 3.48 10^6/uL (4.30-6.10); WHITE BLOOD COUNT 4.4 10^3/uL (4.0-10.0)
[2022-01-22 14:45] LABS: INR 1.4; PLATELET COUNT, AUTOMATED 61 10^3/uL (150-450); PROTHROMBIN TIME 17.4 SECONDS (12.5-14.5)
[2022-01-22 14:46] LABS: PARTIAL THROMBOPLASTIN TIME 37.9 SECONDS (24.8-34.2)
[2022-01-22 15:31] LABS: ALBUMIN 2.7 GM/DL (3.2-5.2); ALT/SGPT 20 U/L (12-78); BILIRUBIN,DIRECT 2.7 MG/DL (0.0-0.2); BILIRUBIN,TOTAL 5.7 MG/DL (0.2-1.0); BLOOD UREA NITROGEN 8 MG/DL (7-18); CALCIUM LEVEL 8.8 MG/DL (8.8-10.2); CARBON DIOXIDE LEVEL 26 MEQ/L (21-32); CHLORIDE LEVEL 103 MEQ/L (98-107); CREATININE FOR GFR 0.64 MG/DL (0.70-1.30); GLOMERULAR FILTRATION RATE > 60.0 (>49); GLUCOSE, FASTING 229 MG/DL (70-100); POTASSIUM SERUM 3.5 MEQ/L (3.5-5.1); SODIUM LEVEL 137 MEQ/L (136-145); TOTAL PROTEIN 7.3 GM/DL (6.4-8.2)
== END ==
LOC: M RAD 12:14
PROVIDERS: ATTEND Internal Medicine Gastroenterology
DX: K74.60 Unspecified cirrhosis of liver (principal)

== ENCOUNTER → 2022-03-01 | Outpatient (CLI) | payer MEDICARE ==
[~2022-03-01] MED LIST changes: -DOXY-350 PO; +DOXY-444 PO
== END ==
LOC: M LABSMTC 11:45
PROVIDERS: ATTEND Anesthesiology
DX: Z01.812 Encounter for preprocedural laboratory examination (principal); Z11.52 Encounter for screening for COVID-19

== ENCOUNTER 2022-03-03 07:56 | Day surgery (SDC) | payer MEDICARE ==
[~2022-03-03] VITALS: Ht 177.8 cm; Wt 75.3 kg
[~2022-03-03 07:56] MED LIST changes: +NS 1,000 ML IV ONE; +propofoL 200 MG/20 ML VIAL As Ordered ONE
[2022-03-03] MEDS ORDERED: ONDANSETRON 4MG 2ML VIAL As Ordered ONE (09:16)
[2022-03-03] MEDS ORDERED: fentaNYL 100 MCG/2 ML INJECTION As Ordered ONE (09:21)
[2022-03-03 09:50] VITALS: BP 113/50
== END 2022-03-03 09:55 | disposition home or self-care (01) ==
LOC: M OPP 07:56
PROVIDERS: ATTEND Internal Medicine Gastroenterology
DX: I85.01 Esophageal varices with bleeding (principal); K76.6 Portal hypertension; K31.89 Other diseases of stomach and duodenum; I10 Essential (primary) hypertension; E11.9 Type 2 diabetes mellitus without complications; E03.9 Hypothyroidism, unspecified; M10.9 Gout, unspecified; M19.90 Unspecified osteoarthritis, unspecified site; E78.5 Hyperlipidemia, unspecified; D64.9 Anemia, unspecified; K74.60 Unspecified cirrhosis of liver; Z79.899 Other long term (current) drug therapy
CPT/HCPCS: 43244; J2405; J3010

== ENCOUNTER → 2022-06-15 | Outpatient (CLI) | payer MEDICARE ==
[~2022-06-15] MED LIST changes: -NS 1,000 ML IV ONE; +SUCR1TAB56 PO; -propofoL 200 MG/20 ML VIAL As Ordered ONE
[2022-06-15 18:31] LABS: HEMATOCRIT 30.7 % (42.0-52.0); HEMOGLOBIN 10.7 g/dl (13.5-17.5); MEAN CORPUSCULAR HEMOGLOBIN 37.5 pg (27.0-33.0); MEAN CORPUSCULAR HGB CONC 34.9 g/dl (32.0-36.5); MEAN CORPUSCULAR VOLUME 107.7 fl (80.0-96.0); PLATELET COUNT, AUTOMATED 68 10^3/uL (150-450); RED BLOOD COUNT 2.85 10^6/uL (4.30-6.10); WHITE BLOOD COUNT 4.7 10^3/uL (4.0-10.0)
[2022-06-15 18:52] LABS: HEMOGLOBIN A1c 6.3 % (4.0-6.0)
[2022-06-15 19:03] LABS: ALBUMIN 2.4 G/DL (3.2-5.2); ALKALINE PHOSPHATASE 284 U/L (46-116); ALT/SGPT 12 U/L (7.0-40); AST/SGOT 35 U/L (<34); BILIRUBIN,TOTAL 10.7 MG/DL (0.3-1.2); BLOOD UREA NITROGEN 9 MG/DL (9-23); CALCIUM LEVEL 8.3 MG/DL (8.3-10.6); CARBON DIOXIDE LEVEL 28 MMOL/L (20-31); CHLORIDE LEVEL 96 MMOL/L (98-107); CHOLESTEROL LEVEL 176 MG/DL (<200); CHOLESTEROL RISK RATIO 7.42 (<5); GLOMERULAR FILTRATION RATE > 60.0 (>49); GLUCOSE, FASTING 238 MG/DL (74-106); HDL CHOLESTEROL 23.7 MG/DL (>40); LDL CHOLESTEROL 114.9 MG/DL (<100); NON-HDL-C 152.3 MG/DL; POTASSIUM SERUM 3.2 MMOL/L (3.5-5.1); SODIUM LEVEL 131 MMOL/L (136-145); THYROID STIMULATING HORMONE 3.019 uIU/ML (0.55-4.78); TOTAL PROTEIN 6.9 G/DL (5.7-8.2); TRIGLYCERIDES LEVEL 187 MG/DL (<150)
== END ==
LOC: M LAB 17:54
PROVIDERS: ATTEND Internal Medicine
DX: E03.9 Hypothyroidism, unspecified (principal)

== ENCOUNTER 2022-07-31 12:03 | Day surgery (SDC) | payer MEDICARE ==
[~2022-07-31] VITALS: Ht 177.8 cm; Wt 83.0 kg
[~2022-07-31 12:03] MED LIST changes: +NS 1,000 ML IV ONE
[2022-07-31] MEDS ORDERED: fentaNYL 100 MCG/2 ML INJECTION As Ordered ONE (13:08)
[2022-07-31] MEDS ORDERED: LIDOCAINE 2% 100MG/5ML SDV (FOR ANES.) As Ordered ONE (13:08)
[2022-07-31] MEDS ORDERED: propofoL 200 MG/20 ML VIAL As Ordered ONE (13:08)
[2022-07-31 14:30] VITALS: BP 146/75
== END 2022-07-31 15:28 | disposition home or self-care (01) ==
LOC: M OPP 12:03
PROVIDERS: ATTEND Internal Medicine Gastroenterology
DX: K22.89 Other specified disease of esophagus (principal); K76.6 Portal hypertension; K31.89 Other diseases of stomach and duodenum; K74.60 Unspecified cirrhosis of liver; I85.00 Esophageal varices without bleeding; Z79.01 Long term (current) use of anticoagulants; Z79.83 Long term (current) use of bisphosphonates; Z79.899 Other long term (current) drug therapy
CPT/HCPCS: 36415; 43235; 80048; 80076; 82105; 82977; 85025; 85049; 85055; J3010

== ENCOUNTER → 2022-07-31 | Outpatient (CLI) | payer MEDICARE ==
[2022-07-31 17:29] LABS: BASO # 0.1 10^3/uL (0.0-0.2); EOS # 0.3 10^3/uL (0.0-0.5); EOS % 3.3 % (0.0-3.0); HEMATOCRIT 30.1 % (42.0-52.0); HEMOGLOBIN 10.6 g/dl (13.5-17.5); LYMPH # 1.1 10^3/uL (1.5-5.0); LYMPH % 13.9 % (24.0-44.0); MEAN CORPUSCULAR HEMOGLOBIN 36.4 pg (27.0-33.0); MEAN CORPUSCULAR HGB CONC 35.2 g/dl (32.0-36.5); MEAN CORPUSCULAR VOLUME 103.4 fl (80.0-96.0); NEUTROPHILS # 5.5 10^3/uL (1.5-8.5); NEUTROPHILS % 69.2 % (36.0-66.0); RED BLOOD COUNT 2.91 10^6/uL (4.30-6.10)
[2022-07-31 17:30] LABS: PLATELET COUNT, AUTOMATED 93 10^3/uL (150-450)
[2022-07-31 18:25] LABS: ALBUMIN 2.3 G/DL (3.2-5.2); ALKALINE PHOSPHATASE 184 U/L (46-116); ALT/SGPT 21 U/L (7.0-40); AST/SGOT 44 U/L (<34); BILIRUBIN,DIRECT 7.2 MG/DL (<0.4); BILIRUBIN,TOTAL 18.2 MG/DL (0.3-1.2); BLOOD UREA NITROGEN 10 MG/DL (9-23); CALCIUM LEVEL 8.1 MG/DL (8.3-10.6); CARBON DIOXIDE LEVEL 29 MMOL/L (20-31); CHLORIDE LEVEL 93 MMOL/L (98-107); CREATININE FOR GFR 0.74 MG/DL (0.70-1.30); GLOMERULAR FILTRATION RATE > 60.0 (>49); GLUCOSE, FASTING 225 MG/DL (74-106); POTASSIUM SERUM 3.1 MMOL/L (3.5-5.1); SODIUM LEVEL 130 MMOL/L (136-145); TOTAL PROTEIN 7.1 G/DL (5.7-8.2)
== END ==
LOC: M LAB 16:24
PROVIDERS: ATTEND Internal Medicine Gastroenterology
DX: I85.00 Esophageal varices without bleeding (principal)
CPT/HCPCS: 36415; 80048; 80076; 82105; 82977; 85025; 85049; 85055; J3010

== ENCOUNTER → 2022-08-04 | Outpatient (CLI) | payer MEDICARE ==
[~2022-08-04] MED LIST changes: -NS 1,000 ML IV ONE
[2022-08-04 12:08] VITALS: BP 148/71
[2022-08-04 12:21] VITALS: BP 144/67
[2022-08-04 12:41] VITALS: BP 146/66
== END ==
LOC: M IRPRO 10:44
PROVIDERS: ATTEND Internal Medicine Gastroenterology
DX: K70.31 Alcoholic cirrhosis of liver with ascites (principal); I85.00 Esophageal varices without bleeding; R94.5 Abnormal results of liver function studies; Z90.49 Acquired absence of other specified parts of digestive tract
CPT/HCPCS: 49083; 76705; 96365; P9047

== ENCOUNTER 2022-08-17 07:56 | Inpatient (IN) | payer MEDICARE ==
[2022-08-17] VITALS (7 sets, daily range): BP systolic 105–128; BP diastolic 59–65
[~2022-08-17] VITALS: Ht 177.8 cm; Wt 74.9 kg
[2022-08-17 10:49] LABS: BASO % 0.1 % (0.0-1.0); EOS # 0.2 10^3/uL (0.0-0.5); EOS % 2.3 % (0.0-3.0); HEMATOCRIT 24.2 % (42.0-52.0); HEMOGLOBIN 8.7 g/dl (13.5-17.5); LYMPH # 0.9 10^3/uL (1.5-5.0); LYMPH % 9.5 % (24.0-44.0); MEAN CORPUSCULAR HEMOGLOBIN 36.7 pg (27.0-33.0); MEAN CORPUSCULAR VOLUME 102.1 fl (80.0-96.0); MONO # 0.8 10^3/uL (0.0-0.8); MONO % 8.3 % (2.0-8.0); NEUTROPHILS # 7.4 10^3/uL (1.5-8.5); NEUTROPHILS % 78.5 % (36.0-66.0); PLATELET COUNT, AUTOMATED 113 10^3/uL (150-450); RED BLOOD COUNT 2.37 10^6/uL (4.30-6.10); WHITE BLOOD COUNT 9.5 10^3/uL (4.0-10.0)
[2022-08-17] MEDS ORDERED: GNP250TA9 PO (10:57)
[2022-08-17] MEDS ORDERED: ACET-897 PO (10:57)
[2022-08-17] MEDS ORDERED: CONS10SO3 PO (10:57)
[2022-08-17] MEDS ORDERED: HOME MED LIST COMPLETE! XX SCH (11:00)
[2022-08-17 11:03] LABS: INR 1.78
[2022-08-17 11:11] LABS: ETHYL ALCOHOL (ETHANOL) 0.003 % (0.000-0.010)
[2022-08-17 11:15] LABS: THYROID STIMULATING HORMONE 3.39 uIU/ML (0.55-4.78)
[2022-08-17 11:24] LABS: ALBUMIN 2.1 G/DL (3.2-5.2); BILIRUBIN,DIRECT 7.9 MG/DL (<0.4); BILIRUBIN,TOTAL 15.4 MG/DL (0.3-1.2); CALCIUM LEVEL 8.7 MG/DL (8.3-10.6); CREATININE FOR GFR 1.99 MG/DL (0.70-1.30); POTASSIUM SERUM 3.9 MMOL/L (3.5-5.1); TOTAL PROTEIN 6.6 G/DL (5.7-8.2)
[2022-08-17] MEDS ORDERED: ONDANSETRON 4MG 2ML VIAL IV ONE (11:25)
[2022-08-17 11:39] LABS: VENOUS BASE EXCESS 4.9 (-2.0-2.0); VENOUS HCO3 29.3 MMOL/L (23.0-27.0); VENOUS O2 SATURATION 96.7 % (60.0-80.0); VENOUS PARTIAL PRESSURE CO2 42.6 mmHg (38.0-50.0); VENOUS PH 7.455 UNITS (7.330-7.430); VENOUS STANDARD HCO3 28.9 MMOL/L; VENOUS TOTAL CO2 30.6 MMOL/L (24.0-28.0)
[2022-08-17] MEDS ORDERED: SCOPOLAMINE 1MG TRANSDERMAL PATCH TOP PRN (13:55)
[2022-08-17] MEDS ORDERED: ONDANSETRON 4MG ORAL DISINTEGRATING TAB PO PRN (13:55)
[2022-08-17] MEDS ORDERED: LORazepam 2 MG/ML 1ML VIAL IV PRN (13:55)
[2022-08-17] MEDS ORDERED: HYOSCYAMINE SULFATE 0.125 MG SUBL TABLET PO PRN (13:55)
[2022-08-17] MEDS: LACTULOSE 20GM/30ML SYRUP UDC PO SCH (16:21)
[2022-08-17] MEDS: PANTOPRAZOLE 40MG TAB (PROTONIX) PO SCH (20:05)
[2022-08-17] MEDS: MORPHINE 10MG/0.5ML ORAL CONCENTRATE SOLUTION U/D SL PRN (22:22)
[2022-08-18 01:42] VITALS: BP 126/64
[2022-08-18 01:43] VITALS: BP 124/65
[2022-08-18 03:47] VITALS: BP 120/67
[2022-08-18] MEDS: LACTULOSE 20GM/30ML SYRUP UDC PO SCH ×2 (09:00→09:12)
[2022-08-18] MEDS: MORPHINE 10MG/0.5ML ORAL CONCENTRATE SOLUTION U/D SL PRN ×2 (10:15→15:17)
[2022-08-18] MEDS: PANTOPRAZOLE 40MG TAB (PROTONIX) PO SCH (21:00)
[2022-08-19] MEDS: LACTULOSE 20GM/30ML SYRUP UDC PO SCH ×2 (09:00→09:10)
[2022-08-19] MEDS: MORPHINE 10MG/0.5ML ORAL CONCENTRATE SOLUTION U/D SL PRN (10:45)
[2022-08-19] MEDS ORDERED: diphenhydrAMINE 50MG/ML VIAL As Ordered ONE (13:42)
[2022-08-19] MEDS ORDERED: fentaNYL 100 MCG/2 ML INJECTION As Ordered ONE ×2 (13:42→14:17)
[2022-08-19] MEDS ORDERED: LIDOCAINE 1% MDV 20ML VIAL As Ordered ONE (13:43)
[2022-08-19] MEDS ORDERED: ISOVUE-300 61% 100ML VIAL As Ordered ONE (13:43)
[2022-08-19] MEDS ORDERED: MIDAZOLAM INJ 2MG/2ML VIAL As Ordered ONE ×2 (13:43→14:25)
[2022-08-19] MEDS ORDERED: ceFAZolin 2 GM/D5W 50 ML IV BAG As Ordered ONE (13:49)
[2022-08-19] MEDS ORDERED: ceFAZolin SOD 2 GM in IV 1 EA IV ONE (14:00)
[2022-08-19 15:00] VITALS: BP 128/63
[2022-08-19] MEDS: PANTOPRAZOLE 40MG TAB (PROTONIX) PO SCH (21:00)
[2022-08-20] MEDS: LACTULOSE 20GM/30ML SYRUP UDC PO SCH (09:00)
[2022-08-20] MEDS: MORPHINE 10MG/0.5ML ORAL CONCENTRATE SOLUTION U/D SL PRN (10:47)
[2022-08-20] MEDS ORDERED: MORP1SOL5 PO (11:14)
[2022-08-20] MEDS ORDERED: HYOS125TA PO (11:14)
[2022-08-20] MEDS ORDERED: ATIV1TAB10 PO (11:14)
== END 2022-08-20 11:45 | disposition hospice, home (50) | DRG 951 ==
LOC: M ED 07:56 → M ED INP 07:57 → M MSPAV 15:51 → OBSVTOIN 08-19 07:52
PROVIDERS: ADMIT Internal Medicine; ATTEND Internal Medicine
PROC: 0W9G3ZZ Drainage of Peritoneal Cavity, Percutaneous Approach (ICD-10-PCS; principal; 2022-08-17 12:00)
PROC: 0W9G30Z Drainage of Peritoneal Cavity with Drainage Device, Percutaneous Approach (ICD-10-PCS; 2022-08-19)
DX: Z51.5 Encounter for palliative care (principal); K76.7 Hepatorenal syndrome; I85.10 Secondary esophageal varices without bleeding; E87.1 Hypo-osmolality and hyponatremia; N17.9 Acute kidney failure, unspecified; D68.4 Acquired coagulation factor deficiency; K76.6 Portal hypertension; K76.82 Hepatic encephalopathy; K70.31 Alcoholic cirrhosis of liver with ascites; R62.7 Adult failure to thrive; D64.9 Anemia, unspecified; E03.9 Hypothyroidism, unspecified; E78.5 Hyperlipidemia, unspecified; K31.89 Other diseases of stomach and duodenum; K72.90 Hepatic failure, unspecified without coma; I10 Essential (primary) hypertension; K21.9 Gastro-esophageal reflux disease without esophagitis; Z90.49 Acquired absence of other specified parts of digestive tract; Z79.891 Long term (current) use of opiate analgesic; Z79.899 Other long term (current) drug therapy